=== PATIENT | male | born 1980 | race Caucasian/White ===

== ENCOUNTER 2022-04-19 14:12 | Emergency (ER) | payer MEDICARE, MEDICAID, SELFPAY ==
[2022-04-19 14:48] VITALS: BP 110/77; PULSE 78; RESP 18; TEMP 36.6; O2SAT 95
--- NOTE | 2022-04-19 15:11 | ED.EAR ---
HPI - Ear Problem General Chief complaint: Ear/Nose/Throat Problem Stated complaint: Ears Bothering Him Time Seen by Provider: 04/19/22 15:04 History of Present Illness HPI Narrative: This patient is a nonverbal resident at some kind of long term. Staff bring him in because of some changes in both ears that have been present for the past year or so. He has some erythema with some crusting that is page to eczema or psoriasis. He does not have any other areas of skin changes elsewhere. Staff state that there are no other issues currently. Related Data Home Medications Medication Instructions Recorded Confirmed cholecalciferol (vitamin D3) 25 04/19/22 mcg (1,000 unit) tablet (Vitamin D3) diazepam 5 mg tablet mg 04/19/22 escitalopram oxalate 10 mg tablet mg 04/19/22 gemfibrozil 600 mg tablet mg 04/19/22 lamotrigine 200 mg tablet mg 04/19/22 propranolol 10 mg tablet mg 04/19/22 propranolol 20 mg tablet mg 04/19/22 quetiapine 100 mg tablet mg 04/19/22 quetiapine 50 mg tablet mg 04/19/22 risperidone 2 mg tablet mg 04/19/22 sennosides 8.6 mg tablet (senna) mg 04/19/22 trazodone 50 mg tablet mg 04/19/22 Previous Rx's Medication Instructions Recorded triamcinolone acetonide 0.1 % 1 applic topical BID #15 grams 04/19/22 topical cream Allergies Allergy/AdvReac Type Severity Reaction Status Date / Time Cephalosporins Allergy Mild Rash Verified 04/19/22 14:52 Review of Systems Narrative: Unable to obtain due to nonverbal mental status. Exam Narrative: Exam Narrative: Constitutional: Well-developed, well-nourished, no acute distress. HEENT: Normocephalic, atraumatic. Tympanic membranes appear normal bilaterally. Neck: Normal range of motion. Nontender. Supple. Heart: Intact distal pulses. Lungs: No chest discomfort. No wheezes, rhonchi, or rales. Abdomen: Nontender. Back: Normal range of motion. Extremities: Normal range of motion. No injury. Skin: Intact. Warm. No pallor. Skin in the external canal has some erythema with some mild crusting. Neurologic: No altered sensation. No weakness. Alert and oriented. Psychiatric: No suicidality. No anxiety or depression. No insomnia. Nursing notes and vitals signs are reviewed. Const: Vital Signs, click to edit/add: Vital Signs - 24 hr 04/19/22 14:48 Temperature 98 F Pulse Rate [Pulse Oximeter] 78 Respiratory Rate 18 Blood Pressure [Ri ght Upper Arm] 110/77 Pulse Oximetry 95 Oxygen Delivery Me thod Room Air Course Vital Signs Vital signs: Initial Vital Signs Temperature 98 F 04/19/22 14:48 Temperature Source Temporal Artery Scan 04/19/22 14:48 Pulse Rate 78 04/19/22 14:48 Respiratory Rate 18 04/19/22 14:48 Blood Pressure 110/77 04/19/22 14:48 Blood Pressure Mean 88 04/19/22 14:48 Blood Pressure Position Supine 04/19/22 14:48 Pulse Oximetry 95 04/19/22 14:48 Oxygen Delivery Method 04/19/22 14:48 Vital Signs Temperature 98 F 04/19/22 14:48 Pulse Rate 78 04/19/22 14:48 Respiratory Rate 18 04/19/22 14:48 Blood Pressure 110/77 04/19/22 14:48 Pulse Oximetry 95 04/19/22 14:48 Oxygen Delivery Method 04/19/22 14:48 Temperature 98 F 04/19/22 14:48 Pulse Rate 78 04/19/22 14:48 Respiratory Rate 18 04/19/22 14:48 Blood Pressure 110/77 04/19/22 14:48 Pulse Oximetry 95 04/19/22 14:48 Oxygen Delivery Method 04/19/22 14:48 Medical Decision Making MDM Narrative Medical decision making narrative: This patient has some skin changes in the external portion of the ears bilaterally. He does not have any other skin changes elsewhere. The ear canal and tympanic membrane bilaterally appear normal. He has been receiving some Vaseline lotion to these areas but there is been no improvement. I did prescribe triamcinolone cream and advised that he follow-up with his primary physician. Discharge Plan Discharge Clinical Impression: Dermatosis Patient Disposition: Home w/ Parent or Adult Condition: Stable Additional Instructions: Use medication as prescribed. Follow up with primary physician for re-evaluation. Prescriptions: New triamcinolone acetonide 0.1 % cream 1 applic topical BID Qty: 15 0RF No Action sennosides [senna] 8.6 mg tablet lamotrigine 200 mg tablet trazodone 50 mg tablet quetiapine 100 mg tablet risperidone 2 mg tablet propranolol 10 mg tablet gemfibrozil 600 mg tablet propranolol 20 mg tablet diazepam 5 mg tablet escitalopram oxalate 10 mg tablet quetiapine 50 mg tablet cholecalciferol (vitamin D3) [Vitamin D3] 25 mcg (1,000 unit) tablet Follow Up/Referrals: Rosalio Conner MD [Primary Care Provider] - Stand Alone Forms: [facility] Info Instructions
== END 2022-04-19 15:46 | disposition home or self-care (01) ==
LOC: ED 15:21
PROVIDERS: Emergency Provider Emergency Medicine Emergency Medical Services; PCP Family Medicine
DX: L30.9 Dermatitis, unspecified (principal)
CPT/HCPCS: 99283; 99284

== ENCOUNTER 2022-05-02 12:12 | Emergency (ER) | payer MEDICARE, MEDICAID, SELFPAY ==
[2022-05-02 12:19] VITALS: BP 109/74; PULSE 74; RESP 20; TEMP 36.1; O2SAT 93
[2022-05-02 12:33] VITALS: BP 89/61; PULSE 71; O2SAT 96
--- NOTE | 2022-05-02 12:36 | CRLHL7_ITS ---
For Patients: As a result of the Century Cures Act, medical imaging exams and procedure reports are released immediately into your electronic medical record. You may view this report before your referring provider. If you have questions, please contact your health care provider. HISTORY: Altered mental status. Seizures. TECHNIQUE: CT brain without contrast. COMPARISON: CT brain 01/01/2010. FINDINGS: Motion artifact through the skullbase. No acute intracranial hemorrhage. No extra-axial collection. No mass effect or midline shift. No ventricular dilation. Basal cisterns are patent. Black-white differentiation is maintained. Calvarium appears intact. Visualized paranasal sinuses and mastoid air cells are clear. Orbits are unremarkable. IMPRESSION: No acute intracranial abnormality. Please note that all CT scans at this facility use dose modulation, iterative reconstruction, and/or weight-based dosing when appropriate to reduce radiation dose to as low as reasonably achievable. Dictated by Patricio Knapp MD @ 05/02/2022 1:28:48 PM (Electronically Signed)
--- NOTE | 2022-05-02 12:40 | ED.AMS ---
HPI - Altered Mental Status General Chief Complaint: Altered Mental Status Stated Complaint: Unrepsonsive Time Seen by Provider: 05/02/22 12:14 History of Present Illness HPI narrative: This 41-year-old male is a resident at [facility] and comes in by ambulance because of altered mental status. He normally can speak some 1 word responses. Today he had breakfast and went back for a nap which is typical for him. At about 11:00 a.m. he was noted to be decreased in his responses and was drooling some from his mouth. Upon arrival here he does look at me and did make verbal response. He however did not follow any commands when asked to do various neurologic checks. He arrives with normal vital signs. Related Data Home Medications Medication Instructions Recorded Confirmed cholecalciferol (vitamin D3) 25 04/19/22 mcg (1,000 unit) tablet (Vitamin D3) diazepam 5 mg tablet mg 04/19/22 escitalopram oxalate 10 mg tablet mg 04/19/22 gemfibrozil 600 mg tablet mg 04/19/22 lamotrigine 200 mg tablet mg 04/19/22 propranolol 10 mg tablet mg 04/19/22 propranolol 20 mg tablet mg 04/19/22 quetiapine 100 mg tablet mg 04/19/22 quetiapine 50 mg tablet mg 04/19/22 risperidone 2 mg tablet mg 04/19/22 sennosides 8.6 mg tablet (senna) mg 04/19/22 trazodone 50 mg tablet mg 04/19/22 Previous Rx's Medication Instructions Recorded triamcinolone acetonide 0.1 % 1 applic topical BID #15 grams 04/19/22 topical cream Allergies Allergy/AdvReac Type Severity Reaction Status Date / Time Cephalosporins Allergy Mild Rash Verified 04/19/22 14:52 Review of Systems Narrative: Unable to obtain due to mental status. [facility] Medical History (Updated 05/02/22 @ 14:04 by Tyler Ramos MD) Intellectual developmental disorder, severe Seizure Social History Smoking Status: Never smoker Do you use any of these nicotine containing products: None Second hand tobacco smoke exposure: No How often do you have a drink containing alcohol: never How often do you have six or more drinks on one occasion: Never AUDIT-C Alcohol total score: 0 Non-prescribed substance use: denies use Exam Narrative: Exam Narrative: Constitutional: Well-developed, well-nourished, no acute distress. HEENT: Normocephalic, atraumatic. Neck: Normal range of motion. Nontender. Supple. Heart: Regular. No murmurs. Normal rate. Intact distal pulses. Lungs: Clear to auscultation. No chest discomfort. No wheezes, rhonchi, or rales. Abdomen: Normal bowel sounds. Nontender. No rebound tenderness. Genitalia: Deferred. Extremities: No sign of injury. Skin: Intact. No rash. Warm. No erythema or pallor. Neurologic: The patient did not cooperate with neurologic exam when asked to squeeze my fingers or move his extremities. He did respond verbally briefly but did not answer questions. His caregiver states that he can make 1 word answers sometimes. He has no facial asymmetry. He did respond or react when and IV was placed and when the blood pressure cuff was inflating. Psychiatric: No suicidality. No anxiety or depression. No insomnia. Nursing notes and vitals signs are reviewed. Const: Vital Signs, click to edit/add: Vital Signs - 24 hr 05/02/22 12:19 Temperature 96.9 F L Pulse Rate [Right Pulse Oximeter] 74 Respiratory Rate 20 Blood Pressure [Ri ght Upper Arm] 109/74 Pulse Oximetry 93 Oxygen Delivery Me thod Room Air Course Vital Signs Vital signs: Initial Vital Signs Temperature 96.9 F L 05/02/22 12:19 Temperature Source Temporal Artery Scan 05/02/22 12:19 Pulse Rate 74 05/02/22 12:19 Respiratory Rate 20 05/02/22 12:19 Blood Pressure 109/74 05/02/22 12:19 Blood Pressure Mean 85 05/02/22 12:19 Blood Pressure Position Sitting 05/02/22 12:19 Pulse Oximetry 93 05/02/22 12:19 Oxygen Delivery Method 05/02/22 12:19 Vital Signs Temperature 96.9 F L 05/02/22 12:19 Pulse Rate 74 05/02/22 12:19 Respiratory Rate 20 05/02/22 12:19 Blood Pressure 109/74 05/02/22 12:19 Pulse Oximetry 93 05/02/22 12:19 Oxygen Delivery Method 05/02/22 12:19 Temperature 96.9 F L 05/02/22 12:19 Pulse Rate 74 08/21/22 12:19 Respiratory Rate 20 05/02/22 12:19 Blood Pressure 109/74 05/02/22 12:19 Pulse Oximetry 93 05/02/22 12:19 Oxygen Delivery Method 05/02/22 12:19 MDM - Altered Mental Status MDM Narrative Medical decision making narrative: This patient comes in because of decreased responses. He arrives with normal vital signs. An IV was established where he has received a L of normal saline. Lab results returned with reassuring findings. He did have a lactate level of 2.5 but is white count, blood pressure, and temperature are all in normal ranges. CT scan of the head and chest x-ray returned with no acute findings also. This patient does have a history of epileptic seizures. He may have had a seizure that was unwitnessed with a subsequent postictal state. In the course of his stay here he has resumed back to normal activities and function. This was confirmed by staff person from [facility]. He is okay to return there to continue current plans. Lab Data Labs: Lab Results 05/02/22 05/02/22 05/02/22 Range/Units 12:30 12:30 12:30 WBC 4.57 (4.50-11.00) K/uL RBC 4.82 (4.30-5.90) m/uL Hgb 14.2 (13.5-17.5) gm/dL Hct 41.9 (37.0-53.0) % MCV 87 (80-100) fL MCH 30 (26-34) pg MCHC 34 (32-36) gm/dL RDW Coeff of Dileep 12.6 (11.5-15.5) % Plt Count 238 (140-440) K/uL Neut % (Auto) 39.7 L (42.0-72.0) % Lymph % (Auto) 50.3 H (20-44) % [place] % (Auto) 9.4 (0.0-11.0) % Eos % (Auto) 0.2 (0.0-7.0) % Baso % (Auto) 0.2 (0.0-3.0) % Neut # (Auto) 1.80 (1.7-7.0) K/uL Lymph # (Auto) 2.30 (0.90-2.90) K/uL [place] # (Auto) 0.40 (0.00-0.90) K/UL Eos # (Auto) 0.01 (0.00-0.50) K/uL Baso # (Auto) 0.01 (0.00-0.30) K/uL Abs Immat Gran (auto) 0.01 (0.00-0.30) K/uL Sodium 140 (135-149) mmol/L Potassium 4.1 (3.6-5.1) mmol/L Chloride 100 (96-114) mmol/L Carbon Dioxide 28 (20-32) mmol/L BUN 20 (5-24) mg/dL Creatinine 0.9 (0.5-1.5) mg/dL Estimated GFR 109 ml/min Glucose 127 H (60-115) mg/dL Lactate (0.5-1.9) mmol/L Calcium 9.4 (8.4-10.6) mg/dL Total Bilirubin 0.4 (0.1-1.5) mg/dL Direct Bilirubin 0.2 (0.0-0.5) mg/dL AST 25 (12-35) U/L ALT 20 (4-50) U/L Alkaline Phosphatase 124 (40-150) U/L Troponin I < 0.01 L (0.01-0.04) ng/mL C-Reactive Protein 1.1 H (0.5-1.0) mg/dL Total Protein 7.6 (6.0-8.3) g/dL Albumin 4.6 (3.3-5.0) g/dL 05/02/22 05/02/22 Range/Units 12:30 12:30 WBC (4.50-11.00) K/uL RBC (4.30-5.90) m/uL Hgb (13.5-17.5) gm/dL Hct (37.0-53.0) % MCV (80-100) fL MCH (26-34) pg MCHC (32-36) gm/dL RDW Coeff of Dileep (11.5-15.5) % Plt Count (140-440) K/uL Neut % (Auto) (42.0-72.0) % Lymph % (Auto) (20-44) % [place] % (Auto) (0.0-11.0) % Eos % (Auto) (0.0-7.0) % Baso % (Auto) (0.0-3.0) % Neut # (Auto) (1.7-7.0) K/uL Lymph # (Auto) (0.90-2.90) K/uL [place] # (Auto) (0.00-0.90) K/UL Eos # (Auto) (0.00-0.50) K/uL Baso # (Auto) (0.00-0.30) K/uL Abs Immat Gran (auto) (0.00-0.30) K/uL Sodium (135-149) mmol/L Potassium (3.6-5.1) mmol/L Chloride (96-114) mmol/L Carbon Dioxide (20-32) mmol/L BUN (5-24) mg/dL Creatinine (0.5-1.5) mg/dL Estimated GFR ml/min Glucose (60-115) mg/dL Lactate 2.5 H (0.5-1.9) mmol/L Calcium (8.4-10.6) mg/dL Total Bilirubin (0.1-1.5) mg/dL Direct Bilirubin (0.0-0.5) mg/dL AST (12-35) U/L ALT (4-50) U/L Alkaline Phosphatase (40-150) U/L Troponin I Cancelled (0.01-0.04) ng/mL C-Reactive Protein (0.5-1.0) mg/dL Total Protein (6.0-8.3) g/dL Albumin (3.3-5.0) g/dL Imaging Data Chest x-ray: Radiologist's impression: Low lung volumes. No airspace consolidation. No pleural effusion or pneumothorax. Pulmonary vasculature and cardiomediastinal silhouette are unremarkable. CT scan - head: Radiologist's impression: No acute intracranial abnormality. ECG Data Attestation: I personally reviewed and interpreted this ECG as follows: Interpretation: Normal sinus rhythm. Rate 71 beats per minute. There are no specific ST or T-wave abnormalities. Discharge Plan Discharge Clinical Impression: Altered mental status Patient Disposition: Home, Self-Care Condition: Improved Instructions: Altered Mental Status (ED) Additional Instructions: Continue current plans. Follow up with MD or return if recurrent or worsening symptoms happen. Prescriptions: No Action sennosides [senna] 8.6 mg tablet lamotrigine 200 mg tablet trazodone 50 mg tablet quetiapine 100 mg tablet risperidone 2 mg tablet propranolol 10 mg tablet gemfibrozil 600 mg tablet propranolol 20 mg tablet diazepam 5 mg tablet escitalopram oxalate 10 mg tablet quetiapine 50 mg tablet cholecalciferol (vitamin D3) [Vitamin D3] 25 mcg (1,000 unit) tablet triamcinolone acetonide 0.1 % cream 1 applic topical BID Qty: 15 0RF Follow Up/Referrals: Rosalio Conner MD [Primary Care Provider] - Stand Alone Forms: [facility] Info Instructions
[2022-05-02 12:48] LABS: Basophils Absolute Auto 0.01 K/uL (0.00-0.30); Basophils Percent Auto 0.2 % (0.0-3.0); Eosinophils Absolute Auto 0.01 K/uL (0.00-0.50); Eosinophils Percent Auto 0.2 % (0.0-7.0); Hematocrit 41.9 % (37.0-53.0); Hemoglobin* 14.2 gm/dL (13.5-17.5); Immature Granulocytes Abs Auto 0.01 K/uL (0.00-0.30); Lymphocytes Percent Auto 50.3 % (20-44); Mean Corpuscular HGB Conc 34 gm/dL (32-36); Mean Corpuscular Hemoglobin 30 pg (26-34); Mean Corpuscular Volume 87 fL (80-100); Monocytes Percent Auto 9.4 % (0.0-11.0); Neutrophils Percent Auto 39.7 % (42.0-72.0); Platelet Count* 238 K/uL (140-440); RDW Coefficient of Variation % 12.6 % (11.5-15.5); Red Blood Count 4.82 m/uL (4.30-5.90); White Blood Count* 4.57 K/uL (4.50-11.00)
[2022-05-02 12:53] LABS: Lactate* 2.5 mmol/L (0.5-1.9)
[2022-05-02 12:54] LABS: Slide Review Reflex No
[2022-05-02 12:56] VITALS: BP 108/77; PULSE 72; RESP 12; O2SAT 98
--- NOTE | 2022-05-02 12:58 | CRLHL7_ITS ---
For Patients: As a result of the Cures Act, medical imaging exams and procedure reports are released immediately into your electronic medical record. You may view this report before your referring provider. If you have questions, please contact your health care provider. HISTORY: Elevated lactate. TECHNIQUE: Portable frontal view the chest. COMPARISON: Chest x-ray 06/03/2018. FINDINGS: Low lung volumes. No airspace consolidation. No pleural effusion or pneumothorax. Pulmonary vasculature and cardiomediastinal silhouette are unremarkable. IMPRESSION: Low lung volumes. Dictated by Patricio Knapp MD @ 05/02/2022 1:29:45 PM (Electronically Signed)
[2022-05-02 13:02] LABS: Chloride* 100 mmol/L (96-114); Potassium* 4.1 mmol/L (3.6-5.1); Sodium* 140 mmol/L (135-149)
[2022-05-02 13:03] LABS: Albumin* 4.6 g/dL (3.3-5.0)
[2022-05-02 13:05] LABS: Blood Urea Nitrogen* 20 mg/dL (5-24); Carbon Dioxide* 28 mmol/L (20-32); Creatinine* 0.9 mg/dL (0.5-1.5); Estimated Glomerular Filt Rate 109 ml/min; Glucose* 127 mg/dL (60-115)
[2022-05-02 13:06] LABS: Alanine Aminotransferase* 20 U/L (4-50); Alkaline Phosphatase* 124 U/L (40-150); Aspartate Amino Transferase* 25 U/L (12-35); Bilirubin Direct* 0.2 mg/dL (0.0-0.5); Bilirubin Total* 0.4 mg/dL (0.1-1.5); Calcium* 9.4 mg/dL (8.4-10.6); Total Protein* 7.6 g/dL (6.0-8.3)
[2022-05-02 13:09] LABS: C Reactive Protein* 1.1 mg/dL (0.5-1.0)
[2022-05-02] MEDS: 0.9 % SODIUM CHLORIDE 1000 ml 1,000 ML IV (13:17)
[2022-05-02 13:38] LABS: Troponin I* < 0.01 ng/mL (0.01-0.04)
[2022-05-02 14:00] VITALS: BP 113/78; PULSE 72
== END 2022-05-02 14:24 | disposition home or self-care (01) ==
PROVIDERS: Emergency Provider Emergency Medicine Emergency Medical Services; PCP Family Medicine
DX: R41.82 Altered mental status, unspecified (principal)
CPT/HCPCS: 36415; 70450; 71045; 80048; 80076; 81001; 83605; 84484; 85025; 86140; 87040; 93005; 96360; 99284; 99285; J7030

== ENCOUNTER 2022-06-28 13:22 | Emergency (ER) | payer MEDICARE, MEDICAID, SELFPAY ==
[2022-06-28 13:45] VITALS: PULSE 72; TEMP 36; O2SAT 94; BMI 31.7
[2022-06-28] MEDS: ACETAMINOPHEN 325 MG TABLET 650 MG PO (15:35)
[2022-06-28 15:45] VITALS: PULSE 71; O2SAT 94
[2022-06-28 16:22] LABS: PCR FLU A Negative PCR FLU A (Negative); PCR FLU B Negative PCR FLU B (Negative); PCR RSV Negative PCR RSV (Negative)
[2022-06-28 16:41] LABS: SARS PCR* Negative SARS-CoV-2 (Negative)
--- NOTE | 2022-06-28 20:40 | ED.GENADULT ---
HPI - General Adult General Date Seen: 06/28/22 Chief complaint: Shortness of Breath/Dyspnea Stated complaint: Oxygen levels low, runny nose, balance off Time Seen by Provider: 06/28/22 14:54 Source: patient and other (Staff from [facility]) Mode of arrival: ambulatory Limitations: no limitations History of Present Illness HPI narrative: Patient is a resident of [facility] presents here with the staff, wondering if he is sick, he seems to have more red eyes today and they wondered if his oxygen levels are normal normal, but he does seem to be normal for him, he just does not have this seemingly Pap that he normally has. No history of fevers chills nausea vomiting he did eat normally today's had normal bowel movements, just a little bit more lethargic. This is been occurring for the past 4-5 hours, and they find it very hard to differentiate as he is nonverbal. Related Data Home Medications Medication Instructions Recorded Confirmed cholecalciferol (vitamin D3) 25 25 mcg PO DAILY 04/19/22 06/28/22 mcg (1,000 unit) tablet (Vitamin D3) diazepam 5 mg tablet 5 mg PO BID 04/19/22 06/28/22 escitalopram oxalate 10 mg tablet mg 04/19/22 gemfibrozil 600 mg tablet mg 04/19/22 lamotrigine 200 mg tablet 200 mg PO Q12H 04/19/22 06/28/22 propranolol 10 mg tablet mg 04/19/22 propranolol 20 mg tablet 20 mg PO Q8H 04/19/22 06/28/22 quetiapine 100 mg tablet 50 mg PO TID 04/19/22 06/28/22 quetiapine 50 mg tablet 25 mg PO TID 04/19/22 06/28/22 risperidone 2 mg tablet 2 mg PO DAILY 04/19/22 06/28/22 sennosides 8.6 mg tablet (senna) 8.6 mg PO BID 04/19/22 06/28/22 trazodone 50 mg tablet 50 mg PO TID 04/19/22 06/28/22 atorvastatin 20 mg tablet 20 mg PO DAILY 06/28/22 06/28/22 clonazepam 0.5 mg tablet 0.25 mg PO Q8H 06/28/22 06/28/22 escitalopram oxalate 5 mg tablet 10 mg PO DAILY 06/28/22 06/28/22 fluvoxamine 100 mg tablet 100 mg PO BID 06/28/22 06/28/22 multivitamin (One Daily Essential 1 tab PO DAILY 06/28/22 06/28/22 tablet) Previous Rx's Medication Instructions Recorded triamcinolone acetonide 0.1 % 1 applic topical BID #15 grams 04/19/22 topical cream Allergies Allergy/AdvReac Type Severity Reaction Status Date / Time Cephalosporins Allergy Mild Rash Verified 06/28/22 13:55 Review of Systems Status of ROS: Reports: unobtainable due to medical condition and unobtainable due to mental status Narrative: Overall negative according to the medical staff, but he does have a runny nose. [facility] Medical History Intellectual developmental disorder, severe Seizure Social History Smoking Status: Never smoker Do you use any of these nicotine containing products: None Second hand tobacco smoke exposure: No How often do you have a drink containing alcohol: never How often do you have six or more drinks on one occasion: Never AUDIT-C Alcohol total score: 0 Non-prescribed substance use: denies use Exam Narrative: Exam Narrative: Patient is examined in room 6, appears to be in no distress, his TMs bilaterally normal oropharynx is normal, good hydration eyes are little bit reddened, no meningismus is noted on examination chest is good air entry bilaterally with no wheezing crackles noted heart sounds are normal his abdomen is entirely soft there is no guarding no pedal splenomegaly bowel sounds are normal, and no tenderness is elicited. Skin with a daycare rashes any moves all extremities independently and well. Const: Vital Signs, click to edit/add: Vital Signs - 24 hr 06/28/22 13:45 06/28/22 15:45 Temperature 96.8 F L Pulse Rate [Right Pulse Oximeter] 72 71 Pulse Oximetry 94 94 Oxygen Delivery Me thod Room Air Room Air Documenting provider has reviewed patient's vital signs: yes Course Vital Signs Vital signs: Initial Vital Signs Temperature 96.8 F L 06/28/22 13:45 Temperature Source Temporal Artery Scan 06/28/22 13:45 Pulse Rate 72 06/28/22 13:45 Blood Pressure Position Sitting 06/28/22 13:45 Pulse Oximetry 94 06/28/22 13:45 Oxygen Delivery Method 06/28/22 13:45 Vital Signs Temperature 96.8 F L 06/28/22 13:45 Pulse Rate 72 06/28/22 13:45 Pulse Oximetry 94 06/28/22 13:45 Oxygen Delivery Method 06/28/22 13:45 Temperature 96.8 F L 06/28/22 13:45 Pulse Rate 71 06/28/22 15:45 Pulse Oximetry 94 06/28/22 15:45 Oxygen Delivery Method 06/28/22 15:45 Medical Decision Making MDM Narrative Medical decision making narrative: Life-threatening differential diagnosis considered include stroke, coronary artery disease, pneumonia, and heart failure. Other differential diagnosis include but are not limited to electrolyte imbalances, anemia, medication reactions, and urinary tract infection Given the current situation with absence of a fever I do not think this is a bladder infection, I do not think he has pneumonia, but I do think he likely has a viral illness given the above picture, we did do a triple swab for COVID, influenza, RSV and this was negative, I do recommend Tylenol watching him and bring him back things are worsening, they were very comfortable with this as the staff is excellent. Lab Data Lab results reviewed: Yes I reviewed the patient's lab results Labs: Lab Results 06/28/22 Range/Units 15:07 SARS-CoV-2 (PCR) Negative SARS-CoV-2 (Negative) Influenza Type A (PCR) Negative PCR FLU A (Negative) Influenza Type B (PCR) Negative PCR FLU B (Negative) RSV (PCR) Negative PCR RSV (Negative) Discharge Plan Discharge Clinical Impression: Viral URI Patient Disposition: Home w/ Parent or Adult Condition: Stable Instructions: Pharyngitis (ED) Additional Instructions: Home rest we will call with the results if they are positive, continue with the Tylenol, follow-up if fevers chills or other signs and symptoms of worsening. Prescriptions: No Action sennosides [senna] 8.6 mg tablet 8.6 mg PO BID lamotrigine 200 mg tablet 200 mg PO Q12H trazodone 50 mg tablet 50 mg PO TID quetiapine 100 mg tablet 50 mg PO TID risperidone 2 mg tablet 2 mg PO DAILY propranolol 10 mg tablet gemfibrozil 600 mg tablet propranolol 20 mg tablet 20 mg PO Q8H diazepam 5 mg tablet 5 mg PO BID escitalopram oxalate 10 mg tablet quetiapine 50 mg tablet 25 mg PO TID cholecalciferol (vitamin D3) [Vitamin D3] 25 mcg (1,000 unit) tablet 25 mcg PO DAILY triamcinolone acetonide 0.1 % cream 1 applic topical BID Qty: 15 0RF atorvastatin 20 mg tablet 20 mg PO DAILY clonazepam 0.5 mg tablet 0.25 mg PO Q8H escitalopram oxalate 5 mg tablet 10 mg PO DAILY fluvoxamine 100 mg tablet 100 mg PO BID multivitamin [One Daily Essential] Tablet 1 tab PO DAILY Follow Up/Referrals: Rosalio Conner MD [Primary Care Provider] - Stand Alone Forms: [facility] Info Instructions
== END 2022-06-28 15:48 | disposition home or self-care (01) ==
PROVIDERS: Emergency Provider Family Medicine; PCP Family Medicine
DX: J06.9 Acute upper respiratory infection, unspecified (principal); Z20.822 Contact with and (suspected) exposure to COVID-19
CPT/HCPCS: 80048; 80076; 83880; 85025; 85379; 85610; 85730; 86140; 87502; 87634; 87635; 99283; 99284; A9270

== ENCOUNTER 2022-07-14 08:49 | Emergency (ER) | payer MEDICARE, MEDICAID, SELFPAY ==
[2022-07-14 09:17] VITALS: BP 97/66; PULSE 70; RESP 18; TEMP 36.6; O2SAT 94
[2022-07-14 10:13] LABS: PCR FLU A Negative PCR FLU A (Negative); PCR FLU B Negative PCR FLU B (Negative); PCR RSV Negative PCR RSV (Negative)
[2022-07-14 10:24] LABS: SARS PCR* Negative SARS-CoV-2 (Negative)
--- NOTE | 2022-07-14 11:01 | ED.EAR ---
HPI - Ear Problem General Time Seen by Provider: 11:02 Date Seen: 07/14/22 Chief complaint: Ear/Nose/Throat Problem Stated complaint: Possible sinus infection Time Seen by Provider: 07/14/22 11:01 Source: patient, RN notes reviewed and old records reviewed Mode of arrival: wheelchair Limitations: no limitations History of Present Illness HPI Narrative: Do Farmer is a 41-year-old male profound developmental delay a verbal from Deanna Galloway who comes to the emergency room with senior stack engineer for evaluation of potential sinus infection. Do munguia had the onset of some green sinus drainage yesterday not associated with a cough or with any fever. When I let the senior stack engineer no of the negative status of COVID she told me that the nurse would like to have scans of do cosme head and feet. They state that for 2 weeks he has been off balance which is unusual for him they states that in the morning he is somewhat slow to respond and what they described as lethargic but according to senior stack engineer this is normal. However, he has been not walking normally and limping. They do not know of any falls or injury but states that he is very stoic and has ambulated on a fractured foot in the past. There has been no recent fever, vomiting, diarrhea that they know of. Related Data Home Medications Medication Instructions Recorded Confirmed cholecalciferol (vitamin D3) 25 25 mcg PO DAILY 04/19/22 06/28/22 mcg (1,000 unit) tablet (Vitamin D3) diazepam 5 mg tablet 5 mg PO BID 04/19/22 06/28/22 escitalopram oxalate 10 mg tablet mg 04/19/22 gemfibrozil 600 mg tablet mg 04/19/22 lamotrigine 200 mg tablet 200 mg PO Q12H 04/19/22 06/28/22 propranolol 10 mg tablet mg 04/19/22 propranolol 20 mg tablet 20 mg PO Q8H 04/19/22 06/28/22 quetiapine 100 mg tablet 50 mg PO TID 04/19/22 06/28/22 quetiapine 50 mg tablet 25 mg PO TID 04/19/22 06/28/22 risperidone 2 mg tablet 2 mg PO DAILY 04/19/22 06/28/22 sennosides 8.6 mg tablet (senna) 8.6 mg PO BID 04/19/22 06/28/22 trazodone 50 mg tablet 50 mg PO TID 04/19/22 06/28/22 atorvastatin 20 mg tablet 20 mg PO DAILY 06/28/22 06/28/22 clonazepam 0.5 mg tablet 0.25 mg PO Q8H 06/28/22 06/28/22 escitalopram oxalate 5 mg tablet 10 mg PO DAILY 06/28/22 06/28/22 fluvoxamine 100 mg tablet 100 mg PO BID 06/28/22 06/28/22 multivitamin (One Daily Essential 1 tab PO DAILY 06/28/22 06/28/22 tablet) Previous Rx's Medication Instructions Recorded triamcinolone acetonide 0.1 % 1 applic topical BID #15 grams 04/19/22 topical cream amoxicillin 875 mg-potassium 1 tab PO BID #10 tabs 07/14/22 clavulanate 125 mg tablet ciprofloxacin 0.3 %-dexamethasone 6 drp otic (ear) QID #15 mL 07/14/22 0.1 % ear drops,suspension (Ciprodex) Allergies Allergy/AdvReac Type Severity Reaction Status Date / Time Cephalosporins Allergy Mild Rash Verified 06/28/22 13:55 Review of Systems Narrative: Unable given patient's condition. However according to caregiver with the exception of balance changes in the last 2 weeks and green nasal discharge yesterday no other acute symptoms. [facility] Medical History Intellectual developmental disorder, severe Seizure Social History Smoking Status: Never smoker Do you use any of these nicotine containing products: None Second hand tobacco smoke exposure: No How often do you have a drink containing alcohol: never How often do you have six or more drinks on one occasion: Never AUDIT-C Alcohol total score: 0 Non-prescribed substance use: denies use Exam Narrative: Exam Narrative: Patient is initially sitting in wheelchair. He is with his neck bent and arms hanging. He is able to keep himself in the wheelchair. He is awake. We do move him into the bed for better exam. His EOM is full and pupils are reactive. He does not necessarily obey commands but when I asked if my can take his shoe off he raises his foot up for me to be able to do that. He is unable does not open his mouth for me. He does open his eyes for me. Right TM within normal limits left TM is visualized but there is significant debris in the canal and some mild erythema of the ear. He did not react to discomfort. Heart is with regular rate and rhythm and lungs are clear bilaterally abdomen is protrude parent and firm but I do not elicit any discomfort. Lower extremities show edema of the right ankle and calf compared to the left. Again no wincing or signs of discomfort as I palpate these areas. Const: Vital Signs, click to edit/add: Vital Signs - 24 hr 07/14/22 09:17 Temperature 97.9 F Pulse Rate [Right Pulse Oximeter] 70 Respiratory Rate 18 Blood Pressure [Ri ght Upper Arm] 97/66 Pulse Oximetry 94 Oxygen Delivery Me thod Room Air Documenting provider has reviewed patient's vital signs: yes Course Course Hospital Course: Patient has been tested for COVID influenza and RSV and is negative. Will add a CBC, comprehensive panel and CRP. In addition will order x-rays of both feet and the right ankle given swelling. Will scan head given the balance issues. Left otitis externa is 1 of the diagnoses currently. Reevaluation(s) Reevaluation #1: Patient is much more awake at this time. Excited to go home. Vital Signs Vital signs: Initial Vital Signs Temperature 97.9 F 07/14/22 09:17 Temperature Source Temporal Artery Scan 07/14/22 09:17 Pulse Rate 70 07/14/22 09:17 Respiratory Rate 18 07/14/22 09:17 Blood Pressure 97/66 07/14/22 09:17 Blood Pressure Mean 76 07/14/22 09:17 Blood Pressure Position Sitting 07/14/22 09:17 Pulse Oximetry 94 07/14/22 09:17 Oxygen Delivery Method 07/14/22 09:17 Vital Signs Temperature 97.9 F 07/14/22 09:17 Pulse Rate 70 07/14/22 09:17 Respiratory Rate 18 07/14/22 09:17 Blood Pressure 97/66 07/14/22 09:17 Pulse Oximetry 94 07/14/22 09:17 Oxygen Delivery Method 07/14/22 09:17 Temperature 97.9 F 07/14/22 09:17 Pulse Rate 70 07/14/22 09:17 Respiratory Rate 18 07/14/22 09:17 Blood Pressure 97/66 07/14/22 09:17 Pulse Oximetry 94 07/14/22 09:17 Oxygen Delivery Method 07/14/22 09:17 Medical Decision Making MDM Narrative Medical decision making narrative: 1. Left otitis externa- We will treat with Ciprodex otic 6 drops q.i.d. x7 days. Recommend ibuprofen or Tylenol as needed for discomfort. 2. Balance problems - this may be secondary to the otitis externa. No evidence of fracture on feet right ankle or abnormality on CT scan. 3. Pansinusitis- will treat with Augmentin 875 p.o. b.i.d. times 10 days. Patient has an allergy to cephalosporins which caused rash but no anaphylaxis. 3. Right ankle swelling- likely secondary to previous injury and hardware. No evidence of acute fracture on x-rays. 3. Disposition -Home with caregiver. Also speak to kathia ACEVEDO in charge of patient care to review need for both ear drops as well as oral antibiotics. Return as needed. Patient is much more alert interactive nontoxic in appearance. Lab Data Lab results reviewed: Yes I reviewed the patient's lab results Labs: Lab Results 07/14/22 07/14/22 07/14/22 Range/Units 09:16 11:25 11:25 WBC 4.73 (4.50-11.00) K/uL RBC 4.89 (4.30-5.90) m/uL Hgb 14.1 (13.5-17.5) gm/dL Hct 42.4 (37.0-53.0) % MCV 87 (80-100) fL MCH 29 (26-34) pg MCHC 33 (32-36) gm/dL RDW Coeff of Dileep 12.7 (11.5-15.5) % Plt Count 202 (140-440) K/uL Neut % (Auto) 47.7 (42.0-72.0) % Lymph % (Auto) 43.3 (20-44) % [place] % (Auto) 8.2 (0.0-11.0) % Eos % (Auto) 0.2 (0.0-7.0) % Baso % (Auto) 0.2 (0.0-3.0) % Neut # (Auto) 2.25 (1.7-7.0) K/uL Lymph # (Auto) 2.05 (0.90-2.90) K/uL [place] # (Auto) 0.40 (0.00-0.90) K/UL Eos # (Auto) 0.01 (0.00-0.50) K/uL Baso # (Auto) 0.01 (0.00-0.30) K/uL Abs Immat Gran (auto) 0.02 (0.00-0.30) K/uL Sodium 139 (135-149) mmol/L Potassium 4.3 (3.6-5.1) mmol/L Chloride 101 (96-114) mmol/L Carbon Dioxide 28 (20-32) mmol/L BUN 15 (5-24) mg/dL Creatinine 0.8 (0.5-1.5) mg/dL Estimated GFR 113 ml/min Glucose 104 (60-115) mg/dL Calcium 9.0 (8.4-10.6) mg/dL Total Bilirubin 0.4 (0.1-1.5) mg/dL AST 26 (12-35) U/L ALT 35 (4-50) U/L Alkaline Phosphatase 147 (40-150) U/L Troponin I < 0.01 L (0.01-0.04) ng/mL C-Reactive Protein 1.8 H (0.5-1.0) mg/dL Total Protein 7.6 (6.0-8.3) g/dL Albumin 4.6 (3.3-5.0) g/dL Amylase 79 (18-89) U/L Lipase 43 (23-300) U/L SARS-CoV-2 (PCR) Negative SARS-CoV-2 (Negative) Influenza Type A (PCR) Negative PCR FLU A (Negative) Influenza Type B (PCR) Negative PCR FLU B (Negative) RSV (PCR) Negative PCR RSV (Negative) Imaging Data CT scan - head: Attestation: I have reviewed the pertinent imaging results. My impression: Sinusitis without acute intracranial finding. Radiologist's impression: Cerebral parenchyma: No evidence of acute territorial infarct. No acute intraparenchymal hemorrhage. No significant mass effect/midline shift. Normal mederos-white matter differentiation. Extra-axial spaces: No extra-axial collection or hemorrhage. Ventricles: Unremarkable. Calvarium: Intact. Visualized paranasal sinuses/mastoid air cells: Diffuse mucosal thickening of the bilateral maxillary sinuses, ethmoid air cells, and left frontal sinus. Posterior fossa: No cerebellar tonsillar herniation. Visualized orbits: Unremarkable. IMPRESSION: 1. No acute intracranial abnormality. 2. Extensive paranasal sinusitis. Bilateral foot x-rays: Attestation: I have reviewed the pertinent imaging results. My impression: Chronic finding Radiologist's impression: Impression: No evidence of acute fracture. Mild hindfoot degenerative arthrosis. No synovitis. Old trauma to the hindfoot. Hallux valgus. No acute fracture. Right ankle x-ray: Attestation: I have reviewed the pertinent imaging results. My impression: No acute finding Radiologist's impression: Old healed fracture deformity of the distal fibula with intact hardware. Chronic syndesmotic fusion. Chronic widening of the medial mortise with hypertrophic change. Chronic deformity of the posterior malleolus. No acute fracture. Impression: Sequela of prior trauma to the ankle with intact hardware and chronic widening of the medial mortise. No acute fracture. ECG Data Attestation: I personally reviewed and interpreted this ECG as follows: Interpretation: EKG by my read shows sinus rhythm at a rate of 71. Poor R-wave progression but no evidence of acute ST or T-wave changes. 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 And sinusitis. Prescriptions: New amoxicillin-pot clavulanate 875-125 mg tablet 1 tab PO BID Qty: 10 0RF ciprofloxacin-dexamethasone [Ciprodex] 0.3-0.1 % drops,suspension 6 drp otic (ear) QID Qty: 15 0RF No Action sennosides [senna] 8.6 mg tablet 8.6 mg PO BID lamotrigine 200 mg tablet 200 mg PO Q12H trazodone 50 mg tablet 50 mg PO TID quetiapine 100 mg tablet 50 mg PO TID risperidone 2 mg tablet 2 mg PO DAILY propranolol 10 mg tablet gemfibrozil 600 mg tablet propranolol 20 mg tablet 20 mg PO Q8H diazepam 5 mg tablet 5 mg PO BID escitalopram oxalate 10 mg tablet quetiapine 50 mg tablet 25 mg PO TID cholecalciferol (vitamin D3) [Vitamin D3] 25 mcg (1,000 unit) tablet 25 mcg PO DAILY triamcinolone acetonide 0.1 % cream 1 applic topical BID Qty: 15 0RF atorvastatin 20 mg tablet 20 mg PO DAILY clonazepam 0.5 mg tablet 0.25 mg PO Q8H escitalopram oxalate 5 mg tablet 10 mg PO DAILY fluvoxamine 100 mg tablet 100 mg PO BID multivitamin [One Daily Essential] Tablet 1 tab PO DAILY Follow Up/Referrals: Rosalio Conner MD [Primary Care Provider] - Stand Alone Forms: [facility] Info Instructions
[2022-07-14 11:30] LABS: Basophils Absolute Auto 0.01 K/uL (0.00-0.30); Basophils Percent Auto 0.2 % (0.0-3.0); Eosinophils Absolute Auto 0.01 K/uL (0.00-0.50); Eosinophils Percent Auto 0.2 % (0.0-7.0); Hematocrit 42.4 % (37.0-53.0); Hemoglobin* 14.1 gm/dL (13.5-17.5); Immature Granulocytes Abs Auto 0.02 K/uL (0.00-0.30); Lymphocytes Absolute Auto 2.05 K/uL (0.90-2.90); Lymphocytes Percent Auto 43.3 % (20-44); Mean Corpuscular HGB Conc 33 gm/dL (32-36); Mean Corpuscular Hemoglobin 29 pg (26-34); Mean Corpuscular Volume 87 fL (80-100); Monocytes Percent Auto 8.2 % (0.0-11.0); Neutrophils Absolute Auto 2.25 K/uL (1.7-7.0); Neutrophils Percent Auto 47.7 % (42.0-72.0); Platelet Count* 202 K/uL (140-440); RDW Coefficient of Variation % 12.7 % (11.5-15.5); Red Blood Count 4.89 m/uL (4.30-5.90); White Blood Count* 4.73 K/uL (4.50-11.00)
[2022-07-14 11:37] LABS: Slide Review Reflex No
[2022-07-14 11:43] LABS: Albumin* 4.6 g/dL (3.3-5.0); Chloride* 101 mmol/L (96-114); Sodium* 139 mmol/L (135-149)
[2022-07-14 11:44] LABS: Potassium* 4.3 mmol/L (3.6-5.1)
[2022-07-14 11:46] LABS: Amylase* 79 U/L (18-89); Aspartate Amino Transferase* 26 U/L (12-35); Bilirubin Total* 0.4 mg/dL (0.1-1.5); Carbon Dioxide* 28 mmol/L (20-32); Creatinine* 0.8 mg/dL (0.5-1.5); Estimated Glomerular Filt Rate 113 ml/min; Total Protein* 7.6 g/dL (6.0-8.3)
[2022-07-14 11:47] LABS: Alanine Aminotransferase* 35 U/L (4-50); Alkaline Phosphatase* 147 U/L (40-150); Blood Urea Nitrogen* 15 mg/dL (5-24); Glucose* 104 mg/dL (60-115); Lipase* 43 U/L (23-300)
--- NOTE | 2022-07-14 11:47 | CRLHL7_ITS ---
For Patients: As a result of the Century Cures Act, medical imaging exams and procedure reports are released immediately into your electronic medical record. You may view this report before your referring provider. If you have questions, please contact your health care provider. Indication: BALANCE PROBLEMS x2 WEEKS Technique: Right foot 2 views Comparison: Right ankle films 11/09/2020 Findings: Sequela of prior trauma to the ankle with secondary tibiotalar arthropathy. Hallux valgus at the 1st MTP joint. Bipartite tibial sesamoid. Normal midfoot. Impression: Old trauma to the hindfoot. Hallux valgus. No acute fracture. Dictated by Amol Rubio MD @ 07/14/2022 12:26:55 PM (Electronically Signed)
--- NOTE | 2022-07-14 11:47 | CRLHL7_ITS ---
For Patients: As a result of the Cures Act, medical imaging exams and procedure reports are released immediately into your electronic medical record. You may view this report before your referring provider. If you have questions, please contact your health care provider. Indication: BALANCE PROBLEMS x2 WEEKS Technique: Right ankle 2 views Comparison: 11/09/2020 Findings: Old healed fracture deformity of the distal fibula with intact hardware. Chronic syndesmotic fusion. Chronic widening of the medial mortise with hypertrophic change. Chronic deformity of the posterior malleolus. No acute fracture. Impression: Sequela of prior trauma to the ankle with intact hardware and chronic widening of the medial mortise. No acute fracture. Dictated by Amol Rubio MD @ 07/14/2022 12:23:56 PM (Electronically Signed)
--- NOTE | 2022-07-14 11:47 | CRLHL7_ITS ---
For Patients: As a result of the Century Cures Act, medical imaging exams and procedure reports are released immediately into your electronic medical record. You may view this report before your referring provider. If you have questions, please contact your health care provider. Indication: BALANCE PROBLEMS x2 WEEKS Technique: Left foot 2 views Comparison: None Findings: Bones: Alignment is normal. No acute fractures or bone lesions. Chronic ossicle adjacent to the medial malleolus. Joint spaces: Mild spurring at the anterior tibial plafond. Soft tissues: Unremarkable. Impression: No evidence of acute fracture. Mild hindfoot degenerative arthrosis. No synovitis. Dictated by Amol Rubio MD @ 07/14/2022 12:28:12 PM (Electronically Signed)
--- NOTE | 2022-07-14 11:47 | CRLHL7_ITS ---
For Patients: As a result of the Century Cures Act, medical imaging exams and procedure reports are released immediately into your electronic medical record. You may view this report before your referring provider. If you have questions, please contact your health care provider. INDICATION: Balance problems. TECHNIQUE: CT head without contrast. COMPARISON: CT head dated 05/02/2022. FINDINGS: Cerebral parenchyma: No evidence of acute territorial infarct. No acute intraparenchymal hemorrhage. No significant mass effect/midline shift. Normal mederos-white matter differentiation. Extra-axial spaces: No extra-axial collection or hemorrhage. Ventricles: Unremarkable. Calvarium: Intact. Visualized paranasal sinuses/mastoid air cells: Diffuse mucosal thickening of the bilateral maxillary sinuses, ethmoid air cells, and left frontal sinus. Posterior fossa: No cerebellar tonsillar herniation. Visualized orbits: Unremarkable. IMPRESSION: 1. No acute intracranial abnormality. 2. Extensive paranasal sinusitis. Please note that all CT scans at this facility use dose modulation, iterative reconstruction, and/or weight-based dosing when appropriate to reduce radiation dose to as low as reasonably achievable. Dictated by Consuelo Ontiveros MD @ 07/14/2022 1:11:02 PM (Electronically Signed)
[2022-07-14 11:49] LABS: C Reactive Protein* 1.8 mg/dL (0.5-1.0)
[2022-07-14 12:21] LABS: Troponin I* < 0.01 ng/mL (0.01-0.04)
[2022-07-14 13:33] VITALS: BP 97/66; PULSE 70; RESP 18; TEMP 36.6
== END 2022-07-14 13:34 | disposition home or self-care (01) ==
PROVIDERS: Emergency Provider Family Medicine; PCP Family Medicine
DX: H60.92 Unspecified otitis externa, left ear (principal); J01.90 Acute sinusitis, unspecified; R26.9 Unspecified abnormalities of gait and mobility; M25.471 Effusion, right ankle; R62.50 Unspecified lack of expected normal physiological development in childhood; G40.909 Epilepsy, unspecified, not intractable, without status epilepticus; Z79.899 Other long term (current) drug therapy; Z88.1 Allergy status to other antibiotic agents; Z20.822 Contact with and (suspected) exposure to COVID-19
CPT/HCPCS: 73620; 36415; 70450; 73600; 80053; 81001; 82150; 83690; 84484; 85025; 86140; 87502; 87634; 87635; 93005; 99285

== ENCOUNTER 2022-12-29 11:34 | Outpatient (CLI) | payer MEDICARE, MEDICAID, SELFPAY | END 2022-12-29 11:35 | disposition home or self-care (01) | LOC: AMB 12-31 12:38 | PROVIDERS: PCP Family Medicine; Visit Provider Family Medicine | DX: R06.09 Other forms of dyspnea (principal); R50.9 Fever, unspecified | CPT/HCPCS: A0425; A0427 ==

== ENCOUNTER 2022-12-29 12:01 | Emergency (ER) | payer MEDICARE, MEDICAID, SELFPAY ==
[2022-12-29] VITALS (29 sets, daily range): BP systolic 82–109; BP diastolic 43–79; PULSE 82–98; RESP 14; TEMP 37.1–37.6; O2SAT 90–95
--- NOTE | 2022-12-29 12:34 | CRLHL7_ITS ---
For Patients: As a result of the Century Cures Act, medical imaging exams and procedure reports are released immediately into your electronic medical record. You may view this report before your referring provider. If you have questions, please contact your health care provider. INDICATION: Seizure, hypoxia. COMPARISON: None. TECHNIQUE: AP portable view. FINDINGS: The cardiomediastinal silhouette and pulmonary vasculature are within normal limits. There is a patchy opacity superimposed over the left upper lung zone suspicious for left upper lobe process, of uncertain etiology. The right lung is clear. The lung volumes are diminished. No pleural effusion or pneumothorax is identified. No acute bone or joint abnormality is seen. IMPRESSION: 1. Diminished lung volumes. 2. Left upper lung zone patchy opacity, suspicious for left upper lobe airspace process of uncertain etiology. Dictated by Nickolas Beckwith MD @ 12/29/2022 1:44:27 PM (Electronically Signed)
--- NOTE | 2022-12-29 12:37 | ED.SEIZURE ---
HPI - Seizure General Chief Complaint: Seizure Stated Complaint: Respiratory issues Time Seen by Provider: 12/29/22 12:20 History of Present Illness HPI Narrative: 42-year-old man presenting via EMS to the emergency department from [facility] with a concern of potential seizure. Does have a seizure disorder managed with lamotrigine. Described as generalized and tonic-clonic. There have been no recent medication changes. I review his seizure plan and it appears that indication for bringing him here is persistent suppressed respiratory effort. Was noted to be 90% on scene. Blood sugar 134. Has not had any apparent recent seizure. Is relatively nonverbal with limited answers to questions. Is a fall risk. Is not known to have fallen or injured himself other than was found with blood about suspected from a lip or oral laceration. Was in usual state of health this morning when received his usual dose of diazepam which is given for mood stabilization. Found later in a somewhat obtunded state as above. Is not answering questions to current state of health. Recently was treated for an apparent sinus infection; completed antibiotic course and seemed to improve. Related Data Home Medications Medication Instructions Recorded Confirmed cholecalciferol (vitamin D3) 25 25 mcg PO DAILY 04/19/22 06/28/22 mcg (1,000 unit) tablet (Vitamin D3) diazepam 5 mg tablet 5 mg PO BID 04/19/22 06/28/22 escitalopram oxalate 10 mg tablet mg 04/19/22 gemfibrozil 600 mg tablet mg 04/19/22 lamotrigine 200 mg tablet 200 mg PO Q12H 04/19/22 06/28/22 propranolol 10 mg tablet mg 04/19/22 propranolol 20 mg tablet 20 mg PO Q8H 04/19/22 06/28/22 quetiapine 100 mg tablet 50 mg PO TID 04/19/22 06/28/22 quetiapine 50 mg tablet 25 mg PO TID 04/19/22 06/28/22 risperidone 2 mg tablet 2 mg PO DAILY 04/19/22 06/28/22 sennosides 8.6 mg tablet (senna) 8.6 mg PO BID 04/19/22 06/28/22 trazodone 50 mg tablet 50 mg PO TID 04/19/22 06/28/22 atorvastatin 20 mg tablet 20 mg PO DAILY 06/28/22 06/28/22 clonazepam 0.5 mg tablet 0.25 mg PO Q8H 06/28/22 06/28/22 escitalopram oxalate 5 mg tablet 10 mg PO DAILY 06/28/22 06/28/22 fluvoxamine 100 mg tablet 100 mg PO BID 06/28/22 06/28/22 multivitamin (One Daily Essential 1 tab PO DAILY 06/28/22 06/28/22 tablet) Previous Rx's Medication Instructions Recorded triamcinolone acetonide 0.1 % 1 applic topical BID #15 grams 04/19/22 topical cream amoxicillin 875 mg-potassium 1 tab PO BID #10 tabs 07/14/22 clavulanate 125 mg tablet ciprofloxacin 0.3 %-dexamethasone 6 drp otic (ear) QID #15 mL 07/14/22 0.1 % ear drops,suspension (Ciprodex) lamotrigine 150 mg tablet 150 mg PO DAILY #30 tabs 12/29/22 Allergies Allergy/AdvReac Type Severity Reaction Status Date / Time Cephalosporins Allergy Mild Rash Verified 06/28/22 13:55 Review of Systems Status of ROS: Reports: unobtainable due to medical condition (However queried staff who accompanies him here today.) [id number] Medical History Intellectual developmental disorder, severe ?F72 - Severe intellectual disabilities (ICD-10) Seizure ?R56.9 - Unspecified convulsions (ICD-10) Social History Smoking Status: Never smoker Do you use any of these nicotine containing products: None Second hand tobacco smoke exposure: No How often do you have a drink containing alcohol: never How often do you have six or more drinks on one occasion: Never AUDIT-C Alcohol total score: 0 Non-prescribed substance use: denies use Exam Narrative: Exam Narrative: Is snoring somewhat in respirations. Does respond to verbal stimuli but briefly. Not answering questions. Head looks to be atraumatic. Eyes are injected. It difficult to test extraocular movements but appear fluid the limited. Pupils are equal and appropriately reactive. Lungs with some congested breathing believes upper airway transmission. Heart in elevated rate in a regular rhythm. Abdomen is soft overweight appears to be nontender. Extremities are without evidence of injury or edema. Well perfused. Oropharynx is rather dry. There is dried Spittle on his mouth. I do not see dental trauma. I can not visualize injury to the oral mucosa lip or tongue at this time. No active bleeding at this time. Smells as if has lost control of bowel; staff suspect this to be the case. Const: Vital Signs, click to edit/add: Vital Signs - 24 hr 12/29/22 12:12 12/29/22 13:30 12/29/22 12:18 Temperature 98.8 F Pulse Rate 94 Pulse Rate [Pulse Oximeter] 95 Respiratory Rate 14 Blood Pressure Blood Pressure [Ri ght Upper Arm] 97/70 104/79 Pulse Oximetry 93 93 Oxygen Delivery Me thod Room Air 12/29/22 12:30 12/29/22 12:31 12/29/22 12:34 Temperature Pulse Rate 82 97 96 Pulse Rate [Pulse Oximeter] Respiratory Rate Blood Pressure 82/43 L 86/64 L Blood Pressure [Ri ght Upper Arm] Pulse Oximetry 94 93 92 Oxygen Delivery Me thod 12/29/22 12:45 12/29/22 13:00 12/29/22 13:04 Temperature Pulse Rate 93 94 95 Pulse Rate [Pulse Oximeter] Respiratory Rate Blood Pressure 98/67 Blood Pressure [Ri ght Upper Arm] Pulse Oximetry 91 91 92 Oxygen Delivery Me thod 12/29/22 13:15 12/29/22 13:31 12/29/22 13:32 Temperature Pulse Rate 97 97 96 Pulse Rate [Pulse Oximeter] Respiratory Rate Blood Pressure 104/79 Blood Pressure [Ri ght Upper Arm] Pulse Oximetry 92 92 92 Oxygen Delivery Me thod 12/29/22 13:45 12/29/22 14:10 12/29/22 14:00 Temperature 99.6 F Pulse Rate 96 98 Pulse Rate [Pulse Oximeter] Respiratory Rate Blood Pressure Blood Pressure [Ri ght Upper Arm] Pulse Oximetry 93 95 Oxygen Delivery Me thod 12/29/22 14:01 12/29/22 14:15 12/29/22 12:33 Temperature Pulse Rate 92 93 Pulse Rate [Pulse Oximeter] Respiratory Rate Blood Pressure 103/68 Blood Pressure [Ri ght Upper Arm] Pulse Oximetry 93 93 92 Oxygen Delivery Me thod 12/29/22 14:30 12/29/22 14:31 12/29/22 14:45 Temperature Pulse Rate 98 95 93 Pulse Rate [Pulse Oximeter] Respiratory Rate Blood Pressure 109/59 L Blood Pressure [Ri ght Upper Arm] Pulse Oximetry 91 94 92 Oxygen Delivery Me thod 12/29/22 15:00 12/29/22 15:01 12/29/22 15:15 Temperature Pulse Rate 95 98 96 Pulse Rate [Pulse Oximeter] Respiratory Rate Blood Pressure 103/71 Blood Pressure [Ri ght Upper Arm] Pulse Oximetry 93 95 92 Oxygen Delivery Me thod 12/29/22 15:30 12/29/22 15:31 12/29/22 15:45 Temperature Pulse Rate 93 91 93 Pulse Rate [Pulse Oximeter] Respiratory Rate Blood Pressure 107/78 Blood Pressure [Ri ght Upper Arm] Pulse Oximetry 93 95 92 Oxygen Delivery Me thod 12/29/22 16:00 12/29/22 16:01 Temperature Pulse Rate 97 97 Pulse Rate [Pulse Oximeter] Respiratory Rate Blood Pressure 95/74 Blood Pressure [Ri ght Upper Arm] Pulse Oximetry 90 94 Oxygen Delivery Me thod Documenting provider has reviewed patient's vital signs: yes Course Vital Signs Vital signs: Initial Vital Signs Respiratory Effort Spontaneous, Non-Labored, Shallow Breathing 12/29/22 12:01 Respiratory Depth Shallow 12/29/22 12:01 Respiratory Pattern Normal 12/29/22 12:01 Vital Signs Temperature 98.8 F 12/29/22 12:12 Pulse Rate 95 12/29/22 12:12 Respiratory Rate 14 12/29/22 12:12 Blood Pressure 97/70 12/29/22 12:12 Pulse Oximetry 93 12/29/22 12:12 Oxygen Delivery Method Room Air 12/29/22 12:12 Temperature 99.6 F 12/29/22 14:10 Pulse Rate 97 12/29/22 16:01 Respiratory Rate 14 12/29/22 12:12 Blood Pressure 95/74 12/29/22 16:01 Pulse Oximetry 94 12/29/22 16:01 Oxygen Delivery Method Room Air 12/29/22 12:12 MDM - Seizure MDM Narrative Medical decision making narrative: Staff attempting to locate when last seizure was. I will call [facility] where his primary neurologist is looks like Dr. Tanja rubio. Will do chest x-ray looking for possible aspiration. Screen for infectious etiology. Monitor for further mental clearing. I do not see indication for head imaging at this time. Did manage to speak with Dr. Coello the new neurologist for Mr. Rinaldi. He is recommending increasing lamotrigine to 300 mg the morning and 350 mg in the evening. Staff reported to me that last seizure that they are aware of was in May of 2022. Doctor Oumou was only aware of more remote seizures. Labs overall reassuring though would note rather elevated CRP of 19.8 Over time in the ER was increasingly responsive, alert though still preferring to sleep. Will also be treating what looks to be an evolving infiltrate in the left upper lung see patient discharge plan Medical Records Attestation: I reviewed the patient's medical records. Lab Data Attestation: I reviewed the patient's lab results. Labs: Lab Results 12/29/22 12/29/22 Range/Units 13:30 13:40 WBC 11.65 H (4.50-11.00) K/uL RBC 4.18 L (4.30-5.90) m/uL Hgb 12.1 L (13.5-17.5) gm/dL Hct 36.3 L (37.0-53.0) % MCV 87 (80-100) fL MCH 29 (26-34) pg MCHC 33 (32-36) gm/dL RDW Coeff of Dileep 13.8 (11.5-15.5) % Plt Count 132 L (140-440) K/uL Neut % (Auto) 70.5 (42.0-72.0) % Lymph % (Auto) 19.9 L (20-44) % Moca % (Auto) 8.9 (0.0-11.0) % Eos % (Auto) 0.3 (0.0-7.0) % Baso % (Auto) 0.1 (0.0-3.0) % Neut # (Auto) 8.20 H (1.7-7.0) K/uL Lymph # (Auto) 2.30 (0.90-2.90) K/uL Moca # (Auto) 1.00 H (0.00-0.90) K/UL Eos # (Auto) 0.00 (0.00-0.50) K/uL Baso # (Auto) 0.00 (0.00-0.30) K/uL VBG pH 7.405 (7.32-7.43) VBG pCO2 43 (40-50) mmHG VBG pO2 41.5 (25-47) mmHG VBG HCO3 27 (21-28) mmol/L Sodium 135 (135-149) mmol/L Potassium 3.6 (3.6-5.1) mmol/L Chloride 103 (96-114) mmol/L Carbon Dioxide 27 (20-32) mmol/L BUN 25 H (5-24) mg/dL Creatinine 1.2 (0.5-1.5) mg/dL Estimated GFR 76 ml/min Glucose 101 (60-115) mg/dL Calcium 8.3 L (8.4-10.6) mg/dL Total Bilirubin 0.5 (0.1-1.5) mg/dL Direct Bilirubin 0.3 (0.0-0.5) mg/dL AST 31 (12-35) U/L ALT 29 (4-50) U/L Alkaline Phosphatase 117 (40-150) U/L C-Reactive Protein 19.8 H (0.5-1.0) mg/dL Total Protein 6.7 (6.0-8.3) g/dL Albumin 3.8 (3.3-5.0) g/dL SARS-CoV-2 (PCR) Negative SARS-CoV-2 (Negative) Influenza Type A (PCR) Negative PCR FLU A (Negative) Influenza Type B (PCR) Negative PCR FLU B (Negative) RSV (PCR) Negative PCR RSV (Negative) Discharge Plan Discharge Clinical Impression: Pulmonary infiltrate, Seizure, Altered mental status Patient Disposition: Home w/ Parent or Adult Condition: Improved Additional Instructions: I did speak with Dr. Matt Coello who is your new neurologist with [facility]. He was aware of rather remote seizure but not as he reported to me here today, your last seizure in May of 2022. At this point increase your lamotrigine to 300 mg in the morning and 350 mg in the evening. Dr. Coello would like you to schedule a follow-up with him as well within the next couple of weeks. Doxycycline from [facility] for on apparent infiltrate in your left upper lung. I would follow up for reimaging of your lungs in 3-4 weeks. Return for persistent increasing shortness of breath, chest pain, increasing fever. Prescriptions: New lamotrigine 150 mg tablet 150 mg PO DAILY Qty: 30 0RF Rx Instructions: Add to 200 mg tablets in the evening to make a total of 350 mg per evening dose No Action sennosides [senna] 8.6 mg tablet 8.6 mg PO BID lamotrigine 200 mg tablet 200 mg PO Q12H trazodone 50 mg tablet 50 mg PO TID quetiapine 100 mg tablet 50 mg PO TID risperidone 2 mg tablet 2 mg PO DAILY propranolol 10 mg tablet gemfibrozil 600 mg tablet propranolol 20 mg tablet 20 mg PO Q8H diazepam 5 mg tablet 5 mg PO BID escitalopram oxalate 10 mg tablet quetiapine 50 mg tablet 25 mg PO TID cholecalciferol (vitamin D3) [Vitamin D3] 25 mcg (1,000 unit) tablet 25 mcg PO DAILY triamcinolone acetonide 0.1 % cream 1 applic topical BID Qty: 15 0RF atorvastatin 20 mg tablet 20 mg PO DAILY clonazepam 0.5 mg tablet 0.25 mg PO Q8H escitalopram oxalate 5 mg tablet 10 mg PO DAILY fluvoxamine 100 mg tablet 100 mg PO BID multivitamin [One Daily Essential] Tablet 1 tab PO DAILY amoxicillin-pot clavulanate 875-125 mg tablet 1 tab PO BID Qty: 10 0RF ciprofloxacin-dexamethasone [Ciprodex] 0.3-0.1 % drops,suspension 6 drp otic (ear) QID Qty: 15 0RF Follow Up/Referrals: Rosalio Conner MD [Primary Care Provider] - Stand Alone Forms: [facility] Info Instructions
[2022-12-29] MEDS: 0.9 % SODIUM CHLORIDE 1000 ml 1,000 ML IV (13:07)
[2022-12-29 13:56] LABS: HCO3 VBG 27 mmol/L (21-28); PCO2 VBG 43 mmHG (40-50); PO2 VBG 41.5 mmHG (25-47); pH VBG 7.405 (7.32-7.43)
--- NOTE | 2022-12-29 13:57 | ED.NURSE ---
Patient was difficult venipunctured. Labs delayed.
[2022-12-29 14:00] LABS: Basophils Percent Auto 0.1 % (0.0-3.0); Eosinophils Percent Auto 0.3 % (0.0-7.0); Hematocrit 36.3 % (37.0-53.0); Hemoglobin* 12.1 gm/dL (13.5-17.5); Immature Granulocytes Pct Auto 0.3 %; Lymphocytes Percent Auto 19.9 % (20-44); Mean Corpuscular HGB Conc 33 gm/dL (32-36); Mean Corpuscular Hemoglobin 29 pg (26-34); Mean Corpuscular Volume 87 fL (80-100); Monocytes Percent Auto 8.9 % (0.0-11.0); Neutrophils Percent Auto 70.5 % (42.0-72.0); Platelet Count* 132 K/uL (140-440); RDW Coefficient of Variation % 13.8 % (11.5-15.5); Red Blood Count 4.18 m/uL (4.30-5.90); White Blood Count* 11.65 K/uL (4.50-11.00)
[2022-12-29 14:01] LABS: Slide Review Reflex No
[2022-12-29 14:28] LABS: Albumin* 3.8 g/dL (3.3-5.0); Chloride* 103 mmol/L (96-114); Potassium* 3.6 mmol/L (3.6-5.1); Sodium* 135 mmol/L (135-149)
[2022-12-29 14:30] LABS: Creatinine* 1.2 mg/dL (0.5-1.5); Estimated Glomerular Filt Rate 76 ml/min
[2022-12-29 14:31] LABS: Alanine Aminotransferase* 29 U/L (4-50); Alkaline Phosphatase* 117 U/L (40-150); Aspartate Amino Transferase* 31 U/L (12-35); Bilirubin Direct* 0.3 mg/dL (0.0-0.5); Bilirubin Total* 0.5 mg/dL (0.1-1.5); Blood Urea Nitrogen* 25 mg/dL (5-24); Carbon Dioxide* 27 mmol/L (20-32); Glucose* 101 mg/dL (60-115); Total Protein* 6.7 g/dL (6.0-8.3)
[2022-12-29 14:32] LABS: Calcium* 8.3 mg/dL (8.4-10.6)
[2022-12-29 14:51] LABS: C Reactive Protein* 19.8 mg/dL (0.5-1.0)
[2022-12-29 15:11] LABS: PCR FLU A Negative PCR FLU A (Negative); PCR FLU B Negative PCR FLU B (Negative); PCR RSV Negative PCR RSV (Negative)
[2022-12-29 15:14] LABS: SARS PCR* Negative SARS-CoV-2 (Negative)
== END 2022-12-29 17:19 | disposition home or self-care (01) ==
PROVIDERS: Emergency Provider Family Medicine; PCP Family Medicine
DX: R41.82 Altered mental status, unspecified (principal)
CPT/HCPCS: 36415; 71045; 80048; 80076; 80175; 81001; 82803; 85025; 86140; 87631; 94761; 99284; J7030

== ENCOUNTER 2022-12-30 01:59 | Inpatient (IN) | payer MEDICARE, MEDICAID, SELFPAY ==
[2022-12-30] VITALS (35 sets, daily range): BP systolic 85–120; BP diastolic 59–86; PULSE 82–104; RESP 18–26; TEMP 36.6–37.8; O2SAT 89–100
--- NOTE | 2022-12-30 02:13 | ED.GENADULT ---
HPI - General Adult General Time Seen by Provider: 02:13 Date Seen: 12/30/22 Chief complaint: Shortness of Breath/Dyspnea Stated complaint: pneumonia, low O2 sats Time Seen by Provider: 12/30/22 02:06 Source: patient, EMS, old records reviewed and other (Caregiver) Limitations: no limitations History of Present Illness HPI narrative: 42-year-old male with history of seizure disorder and developmental delay, minimally verbal at baseline, presents with breathing difficulty from [facility]. Review of chart shows the patient was seen earlier today with seizure, at that time lamotrigine was increased and chest x-ray demonstrated evolving upper lobe infiltrate consistent with possible pneumonia co white blood cell count was slightly elevated. Patient was started on doxycycline, review of chart shows patient was also recently on Augmentin for sinus infection. Returns tonight with continued breathing difficulty. Staff who is with him tonight cannot provide much information. Apparently since his diagnosis of pneumonia earlier today they spot checks oxygen and was found to be in the 80s. Ate dinner tonight, then went to bed. Has not received any medications other than usual. Temperature at home was 97. Related Data Home Medications Medication Instructions Recorded Confirmed cholecalciferol (vitamin D3) 25 25 mcg PO DAILY 04/19/22 06/28/22 mcg (1,000 unit) tablet (Vitamin D3) diazepam 5 mg tablet 5 mg PO BID 04/19/22 06/28/22 escitalopram oxalate 10 mg tablet mg 04/19/22 gemfibrozil 600 mg tablet mg 04/19/22 lamotrigine 200 mg tablet 200 mg PO Q12H 04/19/22 06/28/22 propranolol 10 mg tablet mg 04/19/22 propranolol 20 mg tablet 20 mg PO Q8H 04/19/22 06/28/22 quetiapine 100 mg tablet 50 mg PO TID 04/19/22 06/28/22 quetiapine 50 mg tablet 25 mg PO TID 04/19/22 06/28/22 risperidone 2 mg tablet 2 mg PO DAILY 04/19/22 06/28/22 sennosides 8.6 mg tablet (senna) 8.6 mg PO BID 04/19/22 06/28/22 trazodone 50 mg tablet 50 mg PO TID 04/19/22 06/28/22 atorvastatin 20 mg tablet 20 mg PO DAILY 06/28/22 06/28/22 clonazepam 0.5 mg tablet 0.25 mg PO Q8H 06/28/22 06/28/22 escitalopram oxalate 5 mg tablet 10 mg PO DAILY 06/28/22 06/28/22 fluvoxamine 100 mg tablet 100 mg PO BID 06/28/22 06/28/22 multivitamin (One Daily Essential 1 tab PO DAILY 06/28/22 06/28/22 tablet) Previous Rx's Medication Instructions Recorded triamcinolone acetonide 0.1 % 1 applic topical BID #15 grams 04/19/22 topical cream amoxicillin 875 mg-potassium 1 tab PO BID #10 tabs 07/14/22 clavulanate 125 mg tablet ciprofloxacin 0.3 %-dexamethasone 6 drp otic (ear) QID #15 mL 07/14/22 0.1 % ear drops,suspension (Ciprodex) lamotrigine 150 mg tablet 150 mg PO DAILY #30 tabs 12/29/22 Allergies Allergy/AdvReac Type Severity Reaction Status Date / Time Cephalosporins Allergy Mild Rash Verified 06/28/22 13:55 Review of Systems Status of ROS: Reports: 10 or more systems reviewed and unremarkable except as noted in History and below [facility] Medical History Intellectual developmental disorder, severe ?F72 - Severe intellectual disabilities (ICD-10) Seizure ?R56.9 - Unspecified convulsions (ICD-10) Social History Smoking Status: Never smoker Do you use any of these nicotine containing products: None Second hand tobacco smoke exposure: No How often do you have a drink containing alcohol: never How often do you have six or more drinks on one occasion: Never AUDIT-C Alcohol total score: 0 Non-prescribed substance use: denies use Exam Narrative: Exam Narrative: General: Well-developed and well-nourished, no acute distress Head: Atraumatic and normocephalic Eyes: Pupils are equal reactive, extraocular motions intact, conjunctiva clear ENT: External nose and ears are normal, posterior pharynx without erythema or exudate Neck: No midline cervical tenderness, full spontaneous range of motion the neck, trachea midline, no adenopathy Heart: Regular rate and rhythm no murmurs or thrills Lungs: Upper airway noises, expiratory wheezes bilaterally Abdomen: Soft, nontender, nondistended with active bowel sounds Musculoskeletal: No tenderness, deformity, trace bilateral foot edema Neurologic: Says ow to pain but otherwise resting with eyes closed Psych: Mood and affect are appropriate Skin: No rashes Const: Vital Signs, click to edit/add: Vital Signs - 24 hr 12/30/22 02:04 12/30/22 02:19 12/30/22 03:08 Temperature 98.9 F Pulse Rate Pulse Rate [Pulse Oximeter] 91 90 93 Respiratory Rate 18 20 24 Blood Pressure Blood Pressure [Le ft Upper Arm] 89/61 L 87/70 L 88/67 L Pulse Oximetry 89 94 97 Oxygen Delivery Me thod Room Air OxyMask OxyMask Oxygen Flow Rate 2 12/30/22 06:00 12/30/22 03:11 12/30/22 03:12 Temperature Pulse Rate 97 94 93 Pulse Rate [Pulse Oximeter] Respiratory Rate 18 Blood Pressure 104/86 88/68 L Blood Pressure [Le ft Upper Arm] Pulse Oximetry 99 97 98 Oxygen Delivery Me thod OxyMask Oxygen Flow Rate 2 12/30/22 03:46 12/30/22 03:48 12/30/22 04:00 Temperature Pulse Rate 96 97 97 Pulse Rate [Pulse Oximeter] Respiratory Rate Blood Pressure 88/69 L Blood Pressure [Le ft Upper Arm] Pulse Oximetry 94 92 96 Oxygen Delivery Me thod Oxygen Flow Rate 12/30/22 04:01 12/30/22 04:20 12/30/22 04:21 Temperature Pulse Rate 97 97 99 Pulse Rate [Pulse Oximeter] Respiratory Rate Blood Pressure 99/67 87/63 L Blood Pressure [Le ft Upper Arm] Pulse Oximetry 97 95 97 Oxygen Delivery Me thod Oxygen Flow Rate 12/30/22 04:28 12/30/22 04:30 12/30/22 04:37 Temperature Pulse Rate 95 99 96 Pulse Rate [Pulse Oximeter] Respiratory Rate Blood Pressure 85/65 L 93/68 95/70 Blood Pressure [Le ft Upper Arm] Pulse Oximetry 97 96 97 Oxygen Delivery Me thod Oxygen Flow Rate 12/30/22 04:40 12/30/22 04:41 12/30/22 05:00 Temperature Pulse Rate 95 96 96 Pulse Rate [Pulse Oximeter] Respiratory Rate Blood Pressure 102/71 Blood Pressure [Le ft Upper Arm] Pulse Oximetry 97 98 98 Oxygen Delivery Me thod Oxygen Flow Rate 12/30/22 05:20 12/30/22 05:24 12/30/22 05:40 Temperature Pulse Rate 97 100 96 Pulse Rate [Pulse Oximeter] Respiratory Rate Blood Pressure Blood Pressure [Le ft Upper Arm] Pulse Oximetry 94 100 98 Oxygen Delivery Me thod Oxygen Flow Rate 12/30/22 05:43 12/30/22 05:58 12/30/22 05:59 Temperature Pulse Rate 98 98 96 Pulse Rate [Pulse Oximeter] Respiratory Rate Blood Pressure 96/70 104/86 Blood Pressure [Le ft Upper Arm] Pulse Oximetry 98 97 98 Oxygen Delivery Me thod Oxygen Flow Rate 12/30/22 06:00 12/30/22 06:01 Temperature Pulse Rate 96 97 Pulse Rate [Pulse Oximeter] Respiratory Rate Blood Pressure 108/73 Blood Pressure [Le ft Upper Arm] Pulse Oximetry 99 98 Oxygen Delivery Me thod Oxygen Flow Rate Course Course Hospital Course: Patient seen and evaluated on arrival. Patient with known history of seizure disorder, seen earlier with seizure and concern for possible pneumonia, started on doxycycline. Returns tonight with breathing difficulty and hypoxia from his senior care. On initial exam here, patient is sleeping, does withdraw to pain and says ow, per staff patient is close to his baseline. He is hypotensive on initial arrival, pale, wheezes on respiratory exam. No tachycardia and afebrile here. Concern for possible hypoxic respiratory failure secondary to sepsis from pneumonia, heart failure possible as well. Pulmonary embolism considered but less likely clinically. Labs are ordered along with CT scan of the chest to more closely evaluate lung parenchyma. Given altered mentation reported earlier, head CT is ordered. Broaden antibiotic coverage will be provided as well with Zosyn and vancomycin given hypotension in setting of possible sepsis. Reevaluation(s) Reevaluation #1: Labs independently interpreted by me demonstrate normal white blood cell count, reassuring basic panel, stable hemoglobin, normal lactate. Troponin is slightly elevated from baseline, EKG is normal. This likely represents strain and not acute coronary syndrome but repeat troponin will be done at 2:00 a.m.. Time: 03:53 Reevaluation #2: CT scan of the chest independently interpreted by me demonstrates bilateral infiltrates consistent with pneumonia although poor quality study due to respiratory movement. CT scan of the head independently interpreted by me demonstrates no acute intracranial pathology, although again limited by movement. Time: 03:59 Reevaluation #3: Repeat troponin 0.13 which likely represents cardiac strain secondary to hypoxia hypotension, acute coronary syndrome unlikely. spoke with Dr. Gardiner [facility] who agrees, does recommend echocardiogram to evaluate EF for stress/sepsis related cardiomyopathy but otherwise does not recommend further exploration for ACS. Updated developed hospitalist. Blood pressures have stabilized in the high 90s over 60s which is close to patient's normal. Time: 05:58 Additional Reevaluation(s): 6:15 a.m. blood pressures continued to be 100s / 60s, patient is stable to transfer to the floor Vital Signs Vital signs: Initial Vital Signs Temperature 98.9 F 12/30/22 02:04 Temperature Source Temporal Artery Scan 12/30/22 02:04 Pulse Rate 91 12/30/22 02:04 Respiratory Rate 18 12/30/22 02:04 Blood Pressure 89/61 L 12/30/22 02:04 Blood Pressure Mean 70 12/30/22 02:04 Pulse Oximetry 89 12/30/22 02:04 Oxygen Delivery Method Room Air 12/30/22 02:04 Vital Signs Temperature 98.9 F 12/30/22 02:04 Pulse Rate 91 12/30/22 02:04 Respiratory Rate 18 12/30/22 02:04 Blood Pressure 89/61 L 12/30/22 02:04 Pulse Oximetry 89 12/30/22 02:04 Oxygen Delivery Method Room Air 12/30/22 02:04 Temperature 98.9 F 12/30/22 02:04 Pulse Rate 97 12/30/22 06:01 Respiratory Rate 18 12/30/22 06:00 Blood Pressure 108/73 12/30/22 06:01 Pulse Oximetry 98 12/30/22 06:01 Oxygen Delivery Method OxyMask 12/30/22 06:00 Oxygen Flow Rate 2 12/30/22 06:00 Medical Decision Making Medical Records Medical records reviewed: Yes I reviewed the patient's medical records Lab Data Lab results reviewed: Yes I reviewed the patient's lab results Labs: Lab Results 12/30/22 12/30/22 12/30/22 Range/Units 02:31 02:38 04:45 WBC 10.40 (4.50-11.00) K/uL RBC 4.26 L (4.30-5.90) m/uL Hgb 12.3 L (13.5-17.5) gm/dL Hct 37.2 (37.0-53.0) % MCV 87 (80-100) fL MCH 29 (26-34) pg MCHC 33 (32-36) gm/dL RDW Coeff of Dileep 14.3 (11.5-15.5) % Plt Count 140 (140-440) K/uL Neut % (Auto) 69.8 (42.0-72.0) % Lymph % (Auto) 21.6 (20-44) % [place] % (Auto) 8.1 (0.0-11.0) % Eos % (Auto) 0.1 (0.0-7.0) % Baso % (Auto) 0.1 (0.0-3.0) % Neut # (Auto) 7.26 H (1.7-7.0) K/uL Lymph # (Auto) 2.25 (0.90-2.90) K/uL [place] # (Auto) 0.80 (0.00-0.90) K/UL Eos # (Auto) 0.01 (0.00-0.50) K/uL Baso # (Auto) 0.01 (0.00-0.30) K/uL VBG pH 7.385 (7.32-7.43) VBG pCO2 47 (40-50) mmHG VBG pO2 31.4 (25-47) mmHG VBG HCO3 28 (21-28) mmol/L Sodium 135 (135-149) mmol/L Potassium 3.7 (3.6-5.1) mmol/L Chloride 103 (96-114) mmol/L Carbon Dioxide 26 (20-32) mmol/L BUN 18 (5-24) mg/dL Creatinine 1.0 (0.5-1.5) mg/dL Estimated GFR 95 ml/min Glucose 107 (60-115) mg/dL Lactate 1.3 (0.5-1.9) mmol/L Calcium 8.4 (8.4-10.6) mg/dL Magnesium 1.8 (1.5-2.6) mg/dL Total Bilirubin 0.6 (0.1-1.5) mg/dL Direct Bilirubin 0.4 (0.0-0.5) mg/dL AST 49 H (12-35) U/L ALT 41 (4-50) U/L Alkaline Phosphatase 139 (40-150) U/L NT-Pro-B Natriuret Pep 1160 pg/mL Total Protein 7.2 (6.0-8.3) g/dL Albumin 4.1 (3.3-5.0) g/dL POC Troponin I 0.06 H 0.13 H (0.01-0.04) ng/ml ECG Data Attestation: I personally reviewed and interpreted this ECG as follows: Prior ECG tracings: not available for review Interpretation: Performed at 2:46 p.m., normal sinus rhythm rate 94, no acute ST elevations or depressions, removed who axis. No prior for comparison. Critical Care Time Critical Care Time Critical Care Time: Yes (Acute respiratory failure with hypoxia) Attestation: The patient required my highest level preparedness to intervene emergently and I personally spent this critical care time directly and personally managing the patient. This critical care time included: Obtaining a history; Examining the patient; Pulse oximetry; Ordering and reviewing of studies; Arranging urgent treatment with development of a management plan; Evaluation of patients response to treatment; Frequent reassessment discussions with other providers. This critical care time was performed to assess and manage the high probability of imminent life-threatening deterioration that could result in multiorgan failure. It was exclusive of separate billable procedures and treating other patients and teaching time. Total Critical Care Time in Minutes: 180 Discharge Plan Discharge Clinical Impression: Cognitive developmental delay, Community acquired pneumonia, Seizure disorder Prescriptions: No Action sennosides [senna] 8.6 mg tablet 8.6 mg PO BID lamotrigine 200 mg tablet 200 mg PO Q12H trazodone 50 mg tablet 50 mg PO TID quetiapine 100 mg tablet 50 mg PO TID risperidone 2 mg tablet 2 mg PO DAILY propranolol 10 mg tablet gemfibrozil 600 mg tablet propranolol 20 mg tablet 20 mg PO Q8H diazepam 5 mg tablet 5 mg PO BID escitalopram oxalate 10 mg tablet quetiapine 50 mg tablet 25 mg PO TID cholecalciferol (vitamin D3) [Vitamin D3] 25 mcg (1,000 unit) tablet 25 mcg PO DAILY triamcinolone acetonide 0.1 % cream 1 applic topical BID Qty: 15 0RF atorvastatin 20 mg tablet 20 mg PO DAILY clonazepam 0.5 mg tablet 0.25 mg PO Q8H escitalopram oxalate 5 mg tablet 10 mg PO DAILY fluvoxamine 100 mg tablet 100 mg PO BID multivitamin [One Daily Essential] Tablet 1 tab PO DAILY amoxicillin-pot clavulanate 875-125 mg tablet 1 tab PO BID Qty: 10 0RF ciprofloxacin-dexamethasone [Ciprodex] 0.3-0.1 % drops,suspension 6 drp otic (ear) QID Qty: 15 0RF lamotrigine 150 mg tablet 150 mg PO DAILY Qty: 30 0RF Rx Instructions: Add to 200 mg tablets in the evening to make a total of 350 mg per evening dose Follow Up/Referrals: Rosalio Conner MD [Primary Care Provider] -
[2022-12-30] MEDS: 0.9 % SODIUM CHLORIDE 1000 ml 1,000 ML IV ×2 (02:30→08:10)
--- NOTE | 2022-12-30 02:31 | CRLHL7_ITS ---
For Patients: As a result of the Century Cures Act, medical imaging exams and procedure reports are released immediately into your electronic medical record. You may view this report before your referring provider. If you have questions, please contact your health care provider. INDICATION: Altered mental status TECHNIQUE: Head CT without contrast. COMPARISON: July 14, 2022 FINDINGS: CSF spaces: Within normal limits for age. Brain parenchyma: Normal mederos-white differentiation no sign of mass, hemorrhage, or midline shift. Skull base and calvarium: The visualized paranasal sinuses and mastoid air cells demonstrate no acute or significant findings. The visualized orbits are grossly unremarkable. No skull fractures. IMPRESSION: No acute abnormality. Please note that all CT scans at this facility use dose modulation, iterative reconstruction, and/or weight-based dosing when appropriate to reduce radiation dose to as low as reasonably achievable. Dictated by Carlene Tyler MD @ 12/30/2022 4:09:58 AM (Electronically Signed)
--- NOTE | 2022-12-30 02:31 | CRLHL7_ITS ---
For Patients: As a result of the Century Cures Act, medical imaging exams and procedure reports are released immediately into your electronic medical record. You may view this report before your referring provider. If you have questions, please contact your health care provider. INDICATION: Hypoxia TECHNIQUE: CT chest without contrast. COMPARISON: Chest radiograph December 29, 2022, chest CT March 15, 2021 FINDINGS: Cardiovascular structures: Heart size is normal. Thoracic aorta and main pulmonary artery are normal in caliber. Mediastinum and pat: No sign of mass or adenopathy. Calcified mediastinal lymph nodes. Lungs: Patchy airspace opacities scattered throughout the left lung and within the right lower lobe. Calcified granuloma right lower lobe Pleura and pericardium: No effusions. Chest wall and axilla: No mass or adenopathy. Upper abdomen: Punctate calcifications in the spleen liver likely due to prior granulomatous disease. Mild splenomegaly measuring 14.5 cm. Bones: No significant findings. IMPRESSION: Patchy bilateral airspace opacities consistent with pneumonia. New, mild splenomegaly. Please note that all CT scans at this facility use dose modulation, iterative reconstruction, and/or weight-based dosing when appropriate to reduce radiation dose to as low as reasonably achievable. Dictated by Carlene Tyler MD @ 12/30/2022 4:14:58 AM (Electronically Signed)
[2022-12-30 02:44] LABS: HCO3 VBG 28 mmol/L (21-28); PCO2 VBG 47 mmHG (40-50); PO2 VBG 31.4 mmHG (25-47); pH VBG 7.385 (7.32-7.43)
[2022-12-30 02:46] LABS: Basophils Absolute Auto 0.01 K/uL (0.00-0.30); Basophils Percent Auto 0.1 % (0.0-3.0); Eosinophils Absolute Auto 0.01 K/uL (0.00-0.50); Eosinophils Percent Auto 0.1 % (0.0-7.0); Hematocrit 37.2 % (37.0-53.0); Hemoglobin* 12.3 gm/dL (13.5-17.5); Immature Granulocytes Abs Auto 0.03 K/uL (0.00-0.30); Immature Granulocytes Pct Auto 0.3 %; Lactate* 1.3 mmol/L (0.5-1.9); Lymphocytes Absolute Auto 2.25 K/uL (0.90-2.90); Lymphocytes Percent Auto 21.6 % (20-44); Mean Corpuscular HGB Conc 33 gm/dL (32-36); Mean Corpuscular Hemoglobin 29 pg (26-34); Mean Corpuscular Volume 87 fL (80-100); Monocytes Percent Auto 8.1 % (0.0-11.0); Neutrophils Absolute Auto 7.26 K/uL (1.7-7.0); Neutrophils Percent Auto 69.8 % (42.0-72.0); Platelet Count* 140 K/uL (140-440); RDW Coefficient of Variation % 14.3 % (11.5-15.5); Red Blood Count 4.26 m/uL (4.30-5.90)
[2022-12-30 02:47] LABS: Slide Review Reflex No
[2022-12-30 02:59] LABS: Albumin* 4.1 g/dL (3.3-5.0); Chloride* 103 mmol/L (96-114)
[2022-12-30 03:00] LABS: Potassium* 3.7 mmol/L (3.6-5.1); Sodium* 135 mmol/L (135-149)
[2022-12-30 03:02] LABS: Aspartate Amino Transferase* 49 U/L (12-35); Bilirubin Direct* 0.4 mg/dL (0.0-0.5); Bilirubin Total* 0.6 mg/dL (0.1-1.5); Carbon Dioxide* 26 mmol/L (20-32); Estimated Glomerular Filt Rate 95 ml/min; Total Protein* 7.2 g/dL (6.0-8.3)
[2022-12-30 03:03] LABS: Alanine Aminotransferase* 41 U/L (4-50); Alkaline Phosphatase* 139 U/L (40-150); Blood Urea Nitrogen* 18 mg/dL (5-24); Calcium* 8.4 mg/dL (8.4-10.6); Glucose* 107 mg/dL (60-115); Magnesium* 1.8 mg/dL (1.5-2.6)
[2022-12-30] MEDS: PIPERACILLIN/TAZOBACTAM 3.375 GM in 0.9 % SODIUM CHLORIDE Mini-bag 100 ML IVPB ×4 (03:07→21:19)
[2022-12-30 03:14] LABS: NT Pro B Type NatriureticPept* 1160 pg/mL
[2022-12-30 03:19] LABS: Troponin, Point-of-Care* 0.06 ng/ml (0.01-0.04)
[2022-12-30 05:17] LABS: Troponin, Point-of-Care* 0.13 ng/ml (0.01-0.04)
--- NOTE | 2022-12-30 06:48 | PC.NURSE ---
patient to Med/surg room CU3, katherine RN resumes care
[2022-12-30] MEDS: AZITHROMYCIN 250 MG TABLET 500 MG PO (09:03)
[2022-12-30] MEDS: ACETAMINOPHEN 325 MG TABLET 650 MG PO (11:57)
--- NOTE | 2022-12-30 14:51 | P.IMHP_ITS ---
Hospitalist- H&P: HPI History of Present Illness Date Seen: 12/30/22 Chief complaint: pneumonia, low O2 sats Narrative: Saulo Rinaldi is a 42-year-old male with history of seizure disorder and developmental delay, minimally verbal at baseline, presents with breathing difficulty from [facility].? Review of chart shows the patient was seen earlier today with seizure, at that time lamotrigine was increased and chest x-ray demonstrated evolving upper lobe infiltrate consistent with possible pneumonia co white blood cell count was slightly elevated.? Patient was started on doxycycline, review of chart shows patient was also recently on Augmentin for sinus infection.? Returns tonight with continued breathing difficulty. In the emergency department earlier with seizure and concern for possible pneumonia, started on doxycycline.? Returns tonight with breathing difficulty and hypoxia from his long-term.? On initial exam here, patient is sleeping, does withdraw to pain and says ow, per staff patient is close to his baseline.? He is hypotensive on initial arrival, pale, wheezes on respiratory exam.? No tachycardia and afebrile here.? Concern for possible hypoxic respiratory failure secondary to sepsis from pneumonia, heart failure possible as well.? Pulmonary embolism considered but less likely clinically.? Labs are ordered along with CT scan of the chest to more closely evaluate lung parenchyma.? Given altered mentation reported earlier, head CT is ordered.? Broaden antibiotic coverage will be provided as well with Zosyn and vancomycin given hypotension in setting of possible sepsis. When I see the patient after admission. He is unarousable. He was noted by nurses to ambulate to the bathroom a few minutes before I saw him. He has increased work of breathing and increased rate of breathing requiring oxygen to maintain his O2 sats. Unable to get any further history other than from the medical record. Review of Systems Narrative: Unable to obtain except from the medical record [facility] Medical History (Updated 12/30/22 @ 15:[address] MD) Chronic constipation ?K59.09 - Other constipation (ICD-10) Epilepsy ?G40.909 - Epilepsy, unspecified, not intractable, without status epilepticus (ICD-10) Hyperlipidemia ?E78.5 - Hyperlipidemia, unspecified (ICD-10) Intellectual developmental disorder, severe ?F72 - Severe intellectual disabilities (ICD-10) Intermittent explosive disorder ?F63.81 - Intermittent explosive disorder (ICD-10) Obesity ?E66.9 - Obesity, unspecified (ICD-10) OCD (obsessive compulsive disorder) ?F42.9 - Obsessive-compulsive disorder, unspecified (ICD-10) 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 Sees Dr. Conner for primary care. code status is full. He does not smoke or drink alcohol Highest level of school completed/degree received: don't know Smoking Status: Never smoker Do you use any of these nicotine containing products: None Second hand tobacco smoke exposure: No How often do you have a drink containing alcohol: never How often do you have six or more drinks on one occasion: Never AUDIT-C Alcohol total score: 0 Non-prescribed substance use: denies use service: No Meds Home Medications and Allergies Home Medications Medication Instructions Recorded Confirmed Type cholecalciferol (vitamin D3) 25 25 mcg PO DAILY 04/19/22 12/30/22 History mcg (1,000 unit) tablet (Vitamin D3) diazepam 5 mg tablet 5 mg PO BID 04/19/22 12/30/22 History escitalopram oxalate 10 mg tablet 10 mg PO DAILY 04/19/22 12/30/22 History gemfibrozil 600 mg tablet 600 mg PO BID 04/19/22 12/30/22 History lamotrigine 200 mg tablet 200 mg PO Q12H 04/19/22 12/30/22 History propranolol 20 mg tablet 20 mg PO Q8H 04/19/22 12/30/22 History quetiapine 100 mg tablet 100 mg PO TID 04/19/22 12/30/22 History risperidone 2 mg tablet 3 mg PO QAM 04/19/22 12/30/22 History sennosides 8.6 mg tablet (senna) 8.6 mg PO BID 04/19/22 12/30/22 History trazodone 50 mg tablet 50 mg PO TID 04/19/22 12/30/22 History atorvastatin 20 mg tablet 20 mg PO DAILY 06/28/22 12/30/22 History multivitamin (One Daily Essential 1 tab PO DAILY 06/28/22 12/30/22 History tablet) risperidone 1 mg tablet 3.5 mg PO QPM 12/30/22 12/30/22 History Allergies Allergy/AdvReac Type Severity Reaction Status Date / Time Cephalosporins Allergy Mild Rash Verified 06/28/22 13:55 Exam Narrative: Exam Narrative: He is sleeping and I am unable to arouse him. He does withdraw to pain and resist some aspects of physical examination. Nursing staff note that he was able to ambulate to the bathroom a few minutes before I saw him. He has increased rate and work of breathing. Rhonchus breath sounds are noted. Eyes are normal. No nystagmus or tonic clonic movements. No facial asymmetry. Oropharynx with small airway. Somewhat sonorous breathing. Neck is supple without mass or adenopathy. Respirations with relatively diffuse mild rhonchi and moderate basilar crackles bilaterally. Increased rate and work of breathing. No wheezing or prolonged expiratory phase. Cardiovascular: S1, S2, regular tachycardia. No murmur gallop or rub. Abdomen: Bowel sounds active. Abdomen is soft without tenderness or mass. External genitalia normal. Extr emities normal. Hands and feet are somewhat cool to touch was somewhat sluggish capillary refill. Const: Vital Signs, click to edit/add: Vital Signs - 24 hr 12/30/22 02:04 12/30/22 02:19 12/30/22 03:08 Temperature 98.9 F Pulse Rate Pulse Rate [Pulse Oximeter] 91 90 93 Respiratory Rate 18 20 24 Blood Pressure Blood Pressure [Le ft Upper Arm] 89/61 L 87/70 L 88/67 L Blood Pressure [Ri ght Arm] Pulse Oximetry 89 94 97 Oxygen Delivery Me thod Room Air OxyMask OxyMask Oxygen Flow Rate 2 12/30/22 06:00 12/30/22 03:11 12/30/22 03:12 Temperature Pulse Rate 97 94 93 Pulse Rate [Pulse Oximeter] Respiratory Rate 18 Blood Pressure 104/86 88/68 L Blood Pressure [Le ft Upper Arm] Blood Pressure [Ri ght Arm] Pulse Oximetry 99 97 98 Oxygen Delivery Me thod OxyMask Oxygen Flow Rate 2 12/30/22 03:46 12/30/22 03:48 12/30/22 04:00 Temperature Pulse Rate 96 97 97 Pulse Rate [Pulse Oximeter] Respiratory Rate Blood Pressure 88/69 L Blood Pressure [Le ft Upper Arm] Blood Pressure [Ri ght Arm] Pulse Oximetry 94 92 96 Oxygen Delivery Me thod Oxygen Flow Rate 12/30/22 04:01 12/30/22 04:20 12/30/22 04:21 Temperature Pulse Rate 97 97 99 Pulse Rate [Pulse Oximeter] Respiratory Rate Blood Pressure 99/67 87/63 L Blood Pressure [Le ft Upper Arm] Blood Pressure [Ri ght Arm] Pulse Oximetry 97 95 97 Oxygen Delivery Me thod Oxygen Flow Rate 12/30/22 04:28 12/30/22 04:30 12/30/22 04:37 Temperature Pulse Rate 95 99 96 Pulse Rate [Pulse Oximeter] Respiratory Rate Blood Pressure 85/65 L 93/68 95/70 Blood Pressure [Le ft Upper Arm] Blood Pressure [Ri ght Arm] Pulse Oximetry 97 96 97 Oxygen Delivery Me thod Oxygen Flow Rate 12/30/22 04:40 12/30/22 04:41 12/30/22 05:00 Temperature Pulse Rate 95 96 96 Pulse Rate [Pulse Oximeter] Respiratory Rate Blood Pressure 102/71 Blood Pressure [Le ft Upper Arm] Blood Pressure [Ri ght Arm] Pulse Oximetry 97 98 98 Oxygen Delivery Me thod Oxygen Flow Rate 12/30/22 05:20 12/30/22 05:24 12/30/22 05:40 Temperature Pulse Rate 97 100 96 Pulse Rate [Pulse Oximeter] Respiratory Rate Blood Pressure Blood Pressure [Le ft Upper Arm] Blood Pressure [Ri ght Arm] Pulse Oximetry 94 100 98 Oxygen Delivery Me thod Oxygen Flow Rate 12/30/22 05:43 12/30/22 05:58 12/30/22 05:59 Temperature Pulse Rate 98 98 96 Pulse Rate [Pulse Oximeter] Respiratory Rate Blood Pressure 96/70 104/86 Blood Pressure [Le ft Upper Arm] Blood Pressure [Ri ght Arm] Pulse Oximetry 98 97 98 Oxygen Delivery Me thod Oxygen Flow Rate 12/30/22 06:00 12/30/22 06:01 12/30/22 02:00 Temperature Pulse Rate 96 97 Pulse Rate [Pulse Oximeter] Respiratory Rate Blood Pressure 108/73 Blood Pressure [Le ft Upper Arm] Blood Pressure [Ri ght Arm] Pulse Oximetry 99 98 97 Oxygen Delivery Me thod Oxygen Flow Rate 12/30/22 02:00 12/30/22 06:46 12/30/22 07:15 Temperature 98.3 F Pulse Rate Pulse Rate [Pulse Oximeter] 97 Respiratory Rate 24 Blood Pressure Blood Pressure [Le ft Upper Arm] Blood Pressure [Ri ght Arm] 109/72 Pulse Oximetry 97 98 96 Oxygen Delivery Me thod OxyMask OxyMask Oxygen Flow Rate 3 2 12/30/22 07:15 12/30/22 08:40 12/30/22 10:59 Temperature 100.0 F H Pulse Rate 101 H Pulse Rate [Pulse Oximeter] 104 H Respiratory Rate 24 26 H Blood Pressure Blood Pressure [Le ft Upper Arm] Blood Pressure [Ri ght Arm] 109/76 Pulse Oximetry 93 92 Oxygen Delivery Me thod Nasal Cannula Nasal Cannula Oxygen Flow Rate 1 1 Documenting provider has reviewed patient's vital signs: yes Hospitalist - H&P: Result Labs Labs: Short CBC 12/30/22 Range/Units 02:38 WBC 10.40 (4.50-11.00) K/uL Hgb 12.3 L (13.5-17.5) gm/dL Hct 37.2 (37.0-53.0) % Plt Count 140 (140-440) K/uL BMP 12/30/22 02:38 Sodium 135 Potassium 3.7 Chloride 103 Carbon Dioxide 26 BUN 18 Creatinine 1.0 Glucose 107 Calcium 8.4 Liver Function 12/30/22 Range/Units 02:38 Total Bilirubin 0.6 (0.1-1.5) mg/dL Direct Bilirubin 0.4 (0.0-0.5) mg/dL AST 49 H (12-35) U/L ALT 41 (4-50) U/L Alkaline Phosphatase 139 (40-150) U/L Albumin 4.1 (3.3-5.0) g/dL ECG Attestation: I personally reviewed and interpreted this ECG as follows: (Normal sinus rhythm. Chronic anterior precordial ST-T changes which are unchanged since April and July of 2022. No acute ischemic changes. Normal QT) Imaging CT- Other: Attestation: I have reviewed the pertinent imaging results. (Bilateral patchy infiltrates consistent with pneumonia) Assessment and Plan Assessment and plan (1) Sepsis with acute hypoxic respiratory failure: Problem comment: Due to pneumonia Status: Acute (2) Community acquired pneumonia: Status: Acute (3) Cognitive developmental delay: Status: Acute (4) Altered mental status: Problem comment: Likely due to acute illness without acute or focal neurologic findings Status: Acute (5) Seizure: Problem comment: Seizure yesterday likely related to acute illness with underlying seizure disorder Status: Acute (6) Elevated troponin: Problem comment: Likely type 2 non STEMI or stress-induced ischemia Status: Acute Plan Patient is admitted to the hospital for treatment of hypoxic respiratory failure and sepsis related to pneumonia. During the day today he received additional IV fluids. He was able to wake up enough to eat a meal. He has been a little bit more alert especially when his staff from the long-term are around. He is still at this point nonverbal. Continues to have increased work and rate of breathing this afternoon. Will continue treatment with piperacillin tazobactam and azithromycin. Received vancomycin in the ED. probably not needed. Check nasal MRSA culture and treat accordingly. Total time spent today is 75 minutes, 55 minutes in coordination of care and discussing with other providers ongoing evaluation management of sepsis, hypoxia, pneumonia
--- NOTE | 2022-12-30 15:42 | PC.NURSE ---
Pt admitted to [facility] unit on 12/30/22 overnight after O2 saturations were 70's-80's reported by staff at [facility][Note 3] following pneumonia dx. Pt tolerating bite sized diet well with 100% of meals eaten and 100% assistance with feeding. Pt ambulatory with 2 assist to and from commode. Occasionally incontinent with urine. Pt has hx of cognitive delay with minimal speech. Pt appears alert to self and at times answers questions appropriately. Pt appears comfortable in bed. Occasional cough, no sputum noted at this time.
[2022-12-30] MEDS: PROPRANOLOL 20 MG TABLET PO (16:11)
[2022-12-30] MEDS: risperiDONE 1 MG TABLET 3.5 MG PO (17:30)
--- NOTE | 2022-12-30 18:55 | PC.NURSE ---
Pt drowsy and primarily nonverbal. On 1 L of o2 with sats in the mid 90s. A2 to the commode. Pt calls out when needing the bathroom. Able to take pills whole. Tolerating meals. Requires assistance feeding.
[2022-12-30] MEDS: ENOXAPARIN 40 MG/0.4 ML INJ SUBCUT (21:19)
[2022-12-30] MEDS: TRAZODONE HCL 50 MG TABLET PO (21:20)
[2022-12-30] MEDS: gemfibroziL 600 MG TABLET PO (21:20)
[2022-12-30] MEDS: diazePAM 5 MG TABLET PO (21:20)
[2022-12-30] MEDS: QUETIAPINE 100 MG TABLET PO (21:20)
[2022-12-30] MEDS: SENNOSIDES 1 TAB TABLET PO (21:20)
[2022-12-30] MEDS: SODIUM CHLORIDE 0.9 % (FLUSH) 10 ML SYRINGE 5 ML IVF (21:20)
[2022-12-31] VITALS (11 sets, daily range): BP systolic 104–112; BP diastolic 68–77; PULSE 73–93; RESP 16–20; TEMP 36.3–36.9; O2SAT 90–94
--- NOTE | 2022-12-31 01:33 | PC.NURSE ---
Pt is developmentally delayed. Non verbal. VSS he is very sleepy. Did set off bed alarm by getting out of bed and indicating he had to go to the bathroom. Did not make it and proceeded to void on the floor both urine and stool. He is a heavy assist of 2.
[2022-12-31] MEDS: PIPERACILLIN/TAZOBACTAM 3.375 GM in 0.9 % SODIUM CHLORIDE Mini-bag 100 ML IVPB ×4 (03:05→21:04)
--- NOTE | 2022-12-31 06:49 | PC.NURSE ---
: A x 2 with gb to?BSC. pt asleep majority of shift. Pt on 1-2L O2 via NC to maintain sats >88%. Occasional moist cough. Rhonchi auscultated over lung bases. Held Propranolol x 2?for SBP <120. ? AM WT: 83.37kg bed scale (-0.77kg from admission wt)?
[2022-12-31 06:59] LABS: Basophils Absolute Auto 0.01 K/uL (0.00-0.30); Basophils Percent Auto 0.2 % (0.0-3.0); Eosinophils Absolute Auto 0.03 K/uL (0.00-0.50); Eosinophils Percent Auto 0.6 % (0.0-7.0); Hematocrit 33.2 % (37.0-53.0); Hemoglobin* 11.1 gm/dL (13.5-17.5); Immature Granulocytes Abs Auto 0.03 K/uL (0.00-0.30); Immature Granulocytes Pct Auto 0.6 %; Lymphocytes Absolute Auto 1.58 K/uL (0.90-2.90); Lymphocytes Percent Auto 29.8 % (20-44); Mean Corpuscular HGB Conc 33 gm/dL (32-36); Mean Corpuscular Hemoglobin 29 pg (26-34); Mean Corpuscular Volume 86 fL (80-100); Monocytes Percent Auto 10.5 % (0.0-11.0); Neutrophils Percent Auto 58.3 % (42.0-72.0); Platelet Count* 136 K/uL (140-440); Red Blood Count 3.87 m/uL (4.30-5.90); White Blood Count* 5.31 K/uL (4.50-11.00)
[2022-12-31 07:01] LABS: Slide Review Reflex No
[2022-12-31 07:12] LABS: Chloride* 107 mmol/L (96-114); Potassium* 3.7 mmol/L (3.6-5.1); Sodium* 139 mmol/L (135-149)
[2022-12-31 07:15] LABS: Blood Urea Nitrogen* 7 mg/dL (5-24); Carbon Dioxide* 28 mmol/L (20-32); Creatinine* 0.7 mg/dL (0.5-1.5); Estimated Glomerular Filt Rate 117 ml/min
[2022-12-31 07:16] LABS: Calcium* 7.8 mg/dL (8.4-10.6); Glucose* 124 mg/dL (60-115)
[2022-12-31 07:29] LABS: Troponin I* 0.59 ng/mL (0.01-0.04)
[2022-12-31] MEDS: AZITHROMYCIN 250 MG TABLET 500 MG PO (08:46)
[2022-12-31] MEDS: gemfibroziL 600 MG TABLET PO ×2 (08:47→21:01)
[2022-12-31] MEDS: risperiDONE 1 MG TABLET 3 MG PO (08:48)
[2022-12-31] MEDS: lamoTRIgine 100 MG TABLET 200 MG PO ×2 (08:50→21:04)
[2022-12-31] MEDS: TRAZODONE HCL 50 MG TABLET PO ×3 (08:54→21:02)
[2022-12-31] MEDS: ASPIRIN 81 MG TAB.CHEW PO (08:56)
[2022-12-31] MEDS: ATORVASTATIN 10 MG TABLET 20 MG PO (08:58)
[2022-12-31] MEDS: PROPRANOLOL 20 MG TABLET PO ×3 (09:00→23:22)
[2022-12-31] MEDS: SENNOSIDES 1 TAB TABLET PO (09:00)
[2022-12-31] MEDS: MULTIVITAMIN/MINERALS 1 TABLET 1 TAB PO (09:01)
[2022-12-31] MEDS: QUETIAPINE 100 MG TABLET PO ×3 (09:01→21:02)
[2022-12-31] MEDS: ESCITALOPRAM 10 MG TABLET PO (09:01)
[2022-12-31] MEDS: diazePAM 5 MG TABLET PO ×2 (09:02→21:02)
[2022-12-31] MEDS: SODIUM CHLORIDE 0.9 % (FLUSH) 10 ML SYRINGE 5 ML IVF ×2 (11:04→21:02)
--- NOTE | 2022-12-31 13:14 | PM.IMPN1 ---
Progress Note: A&P Assessment and plan (1) Sepsis with acute hypoxic respiratory failure: Problem details: Due to pneumonia. Appears better. Add vancomycin which can probably be discontinued if blood cultures are negative. Status: Acute (2) Community acquired pneumonia: Problem details: Zosyn, azithromycin, vancomycin in the context of sepsis. If blood cultures are negative and patient is clinically improving consider transitioning to oral Augmentin Status: Acute (3) NSTEMI (non-ST elevated myocardial infarction): Problem details: Troponin elevation continues. EKG changes. Continue to monitor troponin, cardiac monitoring. Await final echo report. Suspect type 2 HI/stress ischemia. Add aspirin to statin. Status: Acute (4) Cognitive developmental delay: Problem details: Nonverbal. Status: Acute (5) Altered mental status: Problem details: Likely due to acute illness without acute or focal neurologic findings. Improved today Status: Acute (6) Seizure: Problem details: Seizure yesterday likely related to acute illness with underlying seizure disorder. His Lamictal level is above the normal range. This was not a trough level. Because of his altered mental status I have reduced his Lamictal dose from 200 in the morning and 350 at bedtime to 200 twice a day. Revisit this as he improves to get proper dosing for discharge Status: Acute (7) Weakness: Problem details: Patient requiring assist of 2 to stand and transfer at this time. I believe he is normally independently ambulatory. This is acute weakness is likely due to his acute illness. PT and OT to evaluate and treat Status: Acute Plan Continue in hospital for IV antibiotics, monitoring of sepsis, non STEMI, hypoxic respiratory failure. Time Spent With Patient Total time spent: Total time spent today is 45 minutes, 35 minutes in coordination of care and discussing with other providers management of sepsis, pneumonia, altered mental status, non-STEMI Subjective Date Seen: 12/31/22 Interval history: 42-year-old male seen in followup of hospital admission for sepsis, altered mental status, hypoxia, pneumonia, non STEMI. In the last day he has become more arousable. He has been able to eat and to drink. He he is still quite weak but able to stand and transfer to the commode. He remains nonverbal. Mostly sleeping and difficult to arouse between meals. He is being treated with piperacillin tazobactam and azithromycin. His MRSA nasal swab came back positive so vancomycin has been restarted. His a troponin has continued to trend upward. He is unable to communicate whether he is having any cardia respiratory symptoms. Nurses have not noted any apparent distress. It is electrocardiogram this morning is unchanged from yesterday except in the inferior leads he has T-wave inversions compared to yesterday. His echocardiogram on preliminary report raises the possibility of apical hypokinesis but is otherwise unremarkable. Exam Narrative: Exam Narrative: He is sleeping and minimally arouses when I initially see him today. He is unable to wake up and eat some food. Breathing appears unlabored with supplemental oxygen. He is nonverbal and at this point not communicating with me with nonverbal means either. He does not appear to be in any distress. Nurses note that he has been able to communicate a desire for food and a desire to go to the bathroom. Head is normal. No obvious facial asymmetry. Oropharynx with small airway. Neck is supple out mass or adenopathy. Respirations with few basilar crackles. Otherwise clear to auscultation. Breathing is less labored than yesterday. Cardiovascular: S1, S2, regular rate and rhythm. No murmur gallop or rub. Abdomen: Bowel sounds active. Abdomen is soft without tenderness or mass. External genitalia normal. Extremities with no significant edema. Extremities are well perfused. Const: Vital Signs, click to edit/add: Vital Signs - 24 hr 12/30/22 16:02 12/30/22 15:00 12/30/22 15:00 Temperature 98.8 F Pulse Rate Pulse Rate [Pulse Oximeter] 101 H 101 H Respiratory Rate 22 Blood Pressure [Ri ght Arm] 120/77 Pulse Oximetry 93 93 Oxygen Delivery Me thod Nasal Cannula Oxygen Flow Rate 1 12/30/22 16:10 12/30/22 19:00 12/30/22 23:00 Temperature 97.9 F Pulse Rate 100 82 Pulse Rate [Pulse Oximeter] 96 Respiratory Rate 20 Blood Pressure [Ri ght Arm] 105/67 Pulse Oximetry 93 Oxygen Delivery Me thod Nasal Cannula Oxygen Flow Rate 1 12/30/22 23:00 12/30/22 23:00 12/30/22 23:00 Temperature 97.9 F Pulse Rate Pulse Rate [Pulse Oximeter] 82 82 Respiratory Rate 20 20 Blood Pressure [Ri ght Arm] 105/59 L Pulse Oximetry 93 93 Oxygen Delivery Me thod Nasal Cannula Oxygen Flow Rate 1 12/31/22 03:00 12/31/22 07:23 12/31/22 07:24 Temperature 97.9 F Pulse Rate 73 Pulse Rate [Pulse Oximeter] 87 Respiratory Rate 20 Blood Pressure [[facility] Arm] 105/71 Pulse Oximetry 92 94 Oxygen Delivery Me thod Nasal Cannula Oxygen Flow Rate 1 12/31/22 07:00 12/31/22 07:00 12/31/22 10:57 Temperature 98.4 F 97.4 F L Pulse Rate Pulse Rate [Pulse Oximeter] 85 93 Respiratory Rate 16 16 19 Blood Pressure [[facility] Arm] 112/77 106/75 Pulse Oximetry 92 90 Oxygen Delivery Me thod Nasal Cannula Nasal Cannula Oxygen Flow Rate 2 1 Documenting provider has reviewed patient's vital signs: yes Labs Labs: Laboratory Results - last 24 hr 12/31/22 06:38 WBC 5.31 RBC 3.87 L Hgb 11.1 L Hct 33.2 L MCV 86 MCH 29 MCHC 33 RDW Coeff of Dileep 14.0 Plt Count 136 L Neut % (Auto) 58.3 Lymph % (Auto) 29.8 [place] % (Auto) 10.5 Eos % (Auto) 0.6 Baso % (Auto) 0.2 Neut # (Auto) 3.10 Lymph # (Auto) 1.58 [place] # (Auto) 0.60 Eos # (Auto) 0.03 Baso # (Auto) 0.01 Sodium 139 Potassium 3.7 Chloride 107 Carbon Dioxide 28 BUN 7 Creatinine 0.7 Estimated GFR 117 Glucose 124 H Calcium 7.8 L Troponin I 0.59 H* ECG Attestation: I personally reviewed and interpreted this ECG as follows: (Electrocardiogram compared to yesterday shows new T-wave inversions in leads 3 and AVF and generalized T-wave flattening. No acute ST segment changes)
--- NOTE | 2022-12-31 14:51 | PC.NURSE ---
Shift summary: Pt pleasant and cooperative to best ability d/t developmental delay. Unable to verbalize needs, staff anticipate needs. Keli cares and incontinent products managed by staff. Pt restless throughout shift. Small amount of urine noted in brief, bladder scan showing 911cc. Straight cathed with 1600cc output. Loose BM *2. Still requiring two assist with gait belt and bedside commode. Pt maintaining O2 sats >90% on RA. Increased agitation, not tolerating continuous pulse ox, spot checked when staff in room. Appetite good, requiring total assist with meals. Right AC saline lock infiltrated, new IV placed in left forearm tolerating infusions well. Turn and repositioned Q2h or as needed.
[2022-12-31] MEDS: PERFLUTREN LIPID MICROSPHERES 2 ML VIAL IV (15:01)
[2022-12-31] MEDS: risperiDONE 1 MG TABLET 3.5 MG PO (17:26)
--- NOTE | 2022-12-31 17:51 | PC.NURSE ---
Shift Summary 15-19: Patient has been restless on and off. director of oncology from [facility] here earlier and did activities with patient to help calm him. Did set off bed exit alarm this afternoon and was found trying to stand at beside. Will try to take of gown, tele and pulse ox. Vitals stable and WNL. Total assist with feeding. had x1 small loose BM this afternoon, pericares and incont products managed by staff. Continues to need 2 assist with gait belt to BSC. Tele appears to be NSR. Patient has a bag with coupons which he likes to look at. Patient also able to reposition head of bed with buttons on side. O2 sats >90% on RA.
[2022-12-31] MEDS: ENOXAPARIN 40 MG/0.4 ML INJ SUBCUT (21:01)
[2023-01-01] VITALS (9 sets, daily range): BP systolic 100–121; BP diastolic 59–86; PULSE 66–82; RESP 18; TEMP 36.2–36.4; O2SAT 93–96
[2023-01-01] MEDS: PIPERACILLIN/TAZOBACTAM 3.375 GM in 0.9 % SODIUM CHLORIDE Mini-bag 100 ML IVPB ×2 (02:36→08:34)
--- NOTE | 2023-01-01 07:00 | PC.NURSE ---
END OF SHIFT NOTE: PT?IS WITH SEVERE INTELLECTUAL DISABILITIES; PRIMARILY NONVERBAL. STAFF TO ANTICIPATE ALL PT NEEDS/CARES. PT?AMBULATES TO BSC WITH HEAVY A2. VSS ON RA; AFEBRILE. BED ALARM ON AND CALL LIGHT WITHIN PT?S REACH. PT DOES NOT USE CALL LIGHT APPROPRIATELY. INCONTINENT OF BOWEL X1 AND BLADDER x2. PT NOT LEAVING CONTINUOUS PULSE OX ON. PT PULLED OFF TELEMETRY x2; TELE REPLACED. PT SPOT CHECKED WITH SPO2 IN 90?s AND TELE READING NSR. FRANDY HELD D/T MULTIPLE LOOSE BM?S PER REPORT. LS WITH EXPIRATORY WHEEZES THROUGHOUT; DIMINISHED IN THE BASES. OCCASIONALLY NON PRODUCTIVE COUGH. CONTENT WHEN WATCHING [employer] CHANNELS, SETTING PUZZLES, CRAFTING WITH COUPONS.
--- NOTE | 2023-01-01 07:31 | PM.IMPN1 ---
Progress Note: A&P Assessment and plan (1) NSTEMI (non-ST elevated myocardial infarction): Problem details: Troponin has peaked. Echo reassuring. Suspect type 2 [place]/stress ischemia. Add aspirin to statin. Echo shows normal LV size, normal wall thickness, normal global systolic function with an EF of 55-60%. Right ventricle function normal. Status: Acute (2) Weakness: Problem details: improving physically and mentally. Status: Acute (3) Pulmonary infiltrate: Problem details: on imaging infitrates look worse. However, CRP, procal, WBC count all downtrending. BC x 48 neg. will stop vanc. azithro course done. DC Zosyn. Transition oral Augmentin. Status: Acute (4) Sepsis with acute hypoxic respiratory failure: Problem details: Due to pneumonia. Appears improved. Status: Acute (5) Cognitive developmental delay: Problem details: Nonverbal. Improved. Status: Acute (6) Community acquired pneumonia: Problem details: Status post Zosyn, azithromycin, vancomycin. Will switch to oral Augmentin. On room air. Status: Acute (7) Seizure disorder: Status: Acute Subjective Date Seen: 01/01/23 Interval history: Daily Progress Note - Hospital Medicine Day #: 3 CC: Sepsis/bacteremia, non-STEMI Day 3 of azithromycin, 500 mg IV and Zosyn Vancomycin started 12/31, day 2 Psych med review Lamictal changed to 200 mg b.i.d. from 200 q.a.m. 350 q.h.s. Risperidone 3 mg q.a.m., 3.5 mg q.p.m. - HOME MED Trazodone 50 mg t.i.d. - HOME MED Seroquel 100 mg t.i.d. - HOME MED Lexapro 10 mg daily - HOME MED Diazepam 5 mg b.i.d. - HOME MED OVERNIGHT UPDATES FROM STAFF & MED, LAB, IMAGING UPDATES Afebrile overnight Blood pressures ranging 106-118 systolic, 70s to 80s diastolic Pulse rate 70s Respiratory rate 18, unlabored Pulse ox 93-94% Weight 83 kilos Upon my arrival there were no morning labs. These were ordered. In review from yesterday: Troponin yesterday was 0.6 at 6:30 a.m. 12/31 ProBNP 11 60 CBC today is stable. Mild leukopenia at 3.8. Hemoglobin stable. His peak leukocytosis was actually 11.6 on the day of admission. PH is stable for 7.4 Lactate is climbing again, 2.1 Troponin downtrending 0.59 down to 0.48 today Procalcitonin normal CRP has down trended from 19.8 down to 8.3 updated CXR today: Moderate patchy multifocal airspace disease worsened since the prior study. Normal pleural spaces. Heart size normal. CT Chest from admission demonstrated new mild splenomegaly and bilateral airspace opacities consistent with pneumonia MRSA noted previously from his nasal swab Two blood cultures negative to date No urinary culture Objective: Vitals: see above Lungs: Clear. Cardiac: S1S2. Disposition/Potential discharge - Likely to return to previous living situation. Total time is 35 minutes with greater than 50% spent in counseling and coordination of care. Exam Const: Vital Signs, click to edit/add: Vital Signs - 24 hr 12/31/22 10:57 12/31/22 11:00 12/31/22 15:06 Temperature 97.4 F L Pulse Rate 87 Pulse Rate [Pulse Oximeter] 93 86 Respiratory Rate 19 18 Blood Pressure [Ri ght Arm] 106/75 106/75 Pulse Oximetry 90 91 Oxygen Delivery Me thod Nasal Cannula Room Air Oxygen Flow Rate 1 12/31/22 15:06 12/31/22 15:37 12/31/22 21:00 Temperature 97.5 F L 97.9 F Pulse Rate Pulse Rate [Pulse Oximeter] 81 79 Respiratory Rate 18 18 Blood Pressure [Ri ght Arm] 106/71 104/68 Pulse Oximetry 94 94 91 Oxygen Delivery Me thod Room Air Room Air Oxygen Flow Rate 12/31/22 22:29 12/31/22 23:00 12/31/22 23:00 Temperature Pulse Rate 83 Pulse Rate [Pulse Oximeter] 74 Respiratory Rate 18 Blood Pressure [Ri ght Arm] Pulse Oximetry 93 Oxygen Delivery Me thod Oxygen Flow Rate 12/31/22 23:00 01/01/23 03:00 01/01/23 07:05 Temperature 97.7 F 97.1 F L Pulse Rate 66 Pulse Rate [Pulse Oximeter] 74 70 Respiratory Rate 18 18 Blood Pressure [Ri ght Arm] 112/76 118/82 Pulse Oximetry 93 94 Oxygen Delivery Me thod Room Air Room Air Oxygen Flow Rate
--- NOTE | 2023-01-01 07:35 | CRLHL7_ITS ---
For Patients: As a result of the Century Cures Act, medical imaging exams and procedure reports are released immediately into your electronic medical record. You may view this report before your referring provider. If you have questions, please contact your health care provider. INDICATION: Follow-up pneumonia COMPARISON: A chest radiograph dated December 29, 2022 TECHNIQUE: PA and lateral views of the chest were acquired FINDINGS: TUBES AND LINES: None. HEART AND MEDIASTINUM: The heart size is normal. The mediastinal contour appears normal for patient age. LUNGS AND PLEURAL SPACES: Moderate patchy multifocal airspace disease. This has worsened.The pleural spaces are unremarkable. OSSEOUS STRUCTURES: Age-appropriate appearance. No acute focal finding. IMPRESSION: Moderate patchy multifocal airspace disease worsened since the prior study. Normal pleural spaces. Heart size normal. Dictated by Rock Marin MD @ 01/01/2023 8:38:40 AM (Electronically Signed)
[2023-01-01] MEDS: SODIUM CHLORIDE 0.9 % (FLUSH) 10 ML SYRINGE 5 ML IVF (08:34)
[2023-01-01] MEDS: ATORVASTATIN 10 MG TABLET 20 MG PO (08:34)
[2023-01-01] MEDS: ASPIRIN 81 MG TAB.CHEW PO (08:35)
[2023-01-01] MEDS: diazePAM 5 MG TABLET PO ×2 (08:35→20:33)
[2023-01-01] MEDS: ACETAMINOPHEN 325 MG TABLET 650 MG PO (08:35)
[2023-01-01] MEDS: TRAZODONE HCL 50 MG TABLET PO ×3 (08:35→20:33)
[2023-01-01] MEDS: AZITHROMYCIN 250 MG TABLET 500 MG PO (08:35)
[2023-01-01] MEDS: MULTIVITAMIN/MINERALS 1 TABLET 1 TAB PO (08:35)
[2023-01-01] MEDS: QUETIAPINE 100 MG TABLET PO ×3 (08:36→20:33)
[2023-01-01] MEDS: ESCITALOPRAM 10 MG TABLET PO (08:36)
[2023-01-01] MEDS: PROPRANOLOL 20 MG TABLET PO ×2 (08:36→17:49)
[2023-01-01] MEDS: gemfibroziL 600 MG TABLET PO ×2 (08:36→20:33)
[2023-01-01] MEDS: risperiDONE 1 MG TABLET 3 MG PO (08:37)
[2023-01-01] MEDS: lamoTRIgine 100 MG TABLET 200 MG PO ×2 (08:37→20:33)
[2023-01-01 09:15] LABS: HCO3 VBG 27 mmol/L (21-28); Ionized Calcium* 1.15 mmol/L (1.11-1.30); Lactate* 2.1 mmol/L (0.5-1.9); PCO2 VBG 43 mmHG (40-50); PO2 VBG 62.3 mmHG (25-47); pH VBG 7.411 (7.32-7.43)
[2023-01-01 09:19] LABS: Eosinophils Percent Auto 0.3 % (0.0-7.0); Hematocrit 38.8 % (37.0-53.0); Hemoglobin* 12.8 gm/dL (13.5-17.5); Immature Granulocytes Pct Auto 1.6 %; Lymphocytes Percent Auto 35.4 % (20-44); Mean Corpuscular HGB Conc 33 gm/dL (32-36); Mean Corpuscular Hemoglobin 29 pg (26-34); Mean Corpuscular Volume 87 fL (80-100); Monocytes Percent Auto 8.4 % (0.0-11.0); Neutrophils Percent Auto 54.3 % (42.0-72.0); Platelet Count* 88 K/uL (140-440); RDW Coefficient of Variation % 14.1 % (11.5-15.5); Red Blood Count 4.47 m/uL (4.30-5.90); White Blood Count* 3.79 K/uL (4.50-11.00)
[2023-01-01 09:45] LABS: Slide Review Reflex Yes
[2023-01-01 09:46] LABS: Slide Review Acceptable Review (Acceptable)
[2023-01-01 09:59] LABS: Procalcitonin* 0.25 ng/mL (<0.50)
[2023-01-01 10:00] LABS: C Reactive Protein* 8.3 mg/dL (0.5-1.0)
[2023-01-01 10:02] LABS: Troponin I* 0.48 ng/mL (0.01-0.04)
[2023-01-01 10:03] LABS: Lipase* 100 U/L (23-300); Magnesium* 1.9 mg/dL (1.5-2.6); Uric Acid* 1.8 mg/dL (2.2-8.4)
[2023-01-01 10:30] LABS: Chloride* 105 mmol/L (96-114); Potassium* 3.7 mmol/L (3.6-5.1); Sodium* 143 mmol/L (135-149)
[2023-01-01 10:39] LABS: Blood Urea Nitrogen* 7 mg/dL (5-24); Creatinine* 0.7 mg/dL (0.5-1.5); Estimated Glomerular Filt Rate 117 ml/min
[2023-01-01 10:43] LABS: Glucose* 130 mg/dL (60-115)
[2023-01-01 10:49] LABS: Alanine Aminotransferase* 82 U/L (4-50); Albumin* 3.9 g/dL (3.3-5.0); Alkaline Phosphatase* 158 U/L (40-150); Total Protein* 6.7 g/dL (6.0-8.3)
[2023-01-01 10:50] LABS: Carbon Dioxide* 24 mmol/L (20-32)
[2023-01-01] MEDS: LACTOBACILLUS ACIDOPHILUS 1 TABLET 2 TAB PO ×2 (14:06→17:47)
[2023-01-01] MEDS: risperiDONE 1 MG TABLET 3.5 MG PO (17:46)
[2023-01-01] MEDS: AMOXICILLIN/CLAVULANATE 500 mg/125 mg TABLET PO (17:47)
--- NOTE | 2023-01-01 18:23 | PC.NURSE ---
end of shift. pt has been pleasant. he can say some words and yells out things at times. he was very restless this am. pt tired to void on BSC with no luck bladder scan 542 and 700 out. pt was was claim and relaxed after. brief was dry. : he pulled tele off and also pulled his IV out with 90% of antibiotic given. md was updated and tele and SL where d/c. he set off bed exit alarm and is standing at the beside. he was dressed this am after am cares. Vitals stable and WNL. he is able to feed him self after set up and food cut up. bladder scan was done 1430 for 330 and 1830. 611. he did have a small wet pad and he did void on the toilet but there was not a hat. 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 Tele NSR this am. Pt has a bag with coupons 2 books. which he likes to look at. pt has been up in the chair. O2 sats >90% on RA. [facility] staff was here and pt is back to his baseline per staff. his sister and mom where also here. he takes pills whole with no problems. he is a fall risk and alarms are on. he is on PNX and MRSA precautions. if no fever or other medical problems plan to d/c at 1200 tomorrow.
[2023-01-01] MEDS: ENOXAPARIN 40 MG/0.4 ML INJ SUBCUT (20:34)
[2023-01-02 03:00] VITALS: RESP 18
--- NOTE | 2023-01-02 05:06 | PC.NURSE ---
END OF SHIFT NOTE: PT PLEASANT AND COOPERATIVE. AMBULATES WITH GB AND A1. VSS ON RA; AFEBRILE. BED/CHAIR ALARM ON AND CALL LIGHT WITHIN PT?S REACH. PT DOES NOT USE CALL LIGHT APPROPRIATELY AND IS IMPULSIVE. WITH SEVERE INTELLECTUAL DISABILITY; PT MORE VERBAL THIS SHIFT; USING SHORT PHRASES. PT FOLLOWS MOST DIRECTIONS GIVEN. PT TO DC BACK HOME TODAY TO [facility]. NIGHT UNEVENTFUL. PT SLEPT WELL THROUGH THE NIGHT.
[2023-01-02 07:00] VITALS: O2SAT 94
[2023-01-02 07:29] LABS: HCO3 VBG 28 mmol/L (21-28); Lactate* 1.1 mmol/L (0.5-1.9); PCO2 VBG 44 mmHG (40-50); PO2 VBG 62.3 mmHG (25-47); pH VBG 7.415 (7.32-7.43)
[2023-01-02 08:10] LABS: Troponin I* 0.15 ng/mL (0.01-0.04)
[2023-01-02 08:31] VITALS: BP 144/93; PULSE 74; RESP 16; TEMP 36.3; O2SAT 97
[2023-01-02] MEDS: PROPRANOLOL 20 MG TABLET PO (08:51)
[2023-01-02] MEDS: AMOXICILLIN/CLAVULANATE 500 mg/125 mg TABLET PO (08:52)
[2023-01-02] MEDS: ATORVASTATIN 10 MG TABLET 20 MG PO (08:53)
[2023-01-02] MEDS: QUETIAPINE 100 MG TABLET PO (08:53)
[2023-01-02] MEDS: ASPIRIN 81 MG TAB.CHEW PO (08:53)
[2023-01-02] MEDS: MULTIVITAMIN/MINERALS 1 TABLET 1 TAB PO (08:54)
[2023-01-02] MEDS: SENNOSIDES 1 TAB TABLET PO (08:54)
[2023-01-02] MEDS: ESCITALOPRAM 10 MG TABLET PO (08:55)
[2023-01-02] MEDS: diazePAM 5 MG TABLET PO (08:55)
[2023-01-02] MEDS: TRAZODONE HCL 50 MG TABLET PO (08:55)
[2023-01-02] MEDS: gemfibroziL 600 MG TABLET PO (08:56)
[2023-01-02] MEDS: lamoTRIgine 100 MG TABLET 200 MG PO (08:56)
[2023-01-02] MEDS: risperiDONE 1 MG TABLET 3 MG PO (08:57)
[2023-01-02] MEDS: LACTOBACILLUS ACIDOPHILUS 1 TABLET 2 TAB PO (08:59)
--- NOTE | 2023-01-02 09:23 | PM.DS1 ---
DS: Providers Provider Date Seen: 01/02/23 Date of admission: 12/30/22 08:10 Primary care physician: Rosalio Conner MD Admitting Clinician: Elina Piedra MD Consults: 12/30/22 09:31 Consult to Physical Therapy [CONS] Routine Comment: Reason(s) for PT Consult:: Weakness Any Restrictions?:: No Restrictions Attending Physician on discharge: Leandra Segura MD [facility] Hospitalist Date of Discharge: 01/02/23 DS: Diagnosis Discharge Diagnosis (1) NSTEMI (non-ST elevated myocardial infarction): Status: Acute Problem details: Troponin has peaked. Echo reassuring. Suspect type 2 [place]/stress ischemia. Add aspirin to statin. Echo shows normal LV size, normal wall thickness, normal global systolic function with an EF of 55-60%. Right ventricle function normal. (2) Weakness: Status: Acute Problem details: improving physically and mentally. (3) Pulmonary infiltrate: Status: Acute Problem details: on imaging infitrates had not improved. However, CRP, procal, WBC count all downtrending. BC x since triage in ED. will stop vanc. azithro course done. DC Zosyn. Transition oral Augmentin for 7 days. +MRSA on nasal culture. (4) Sepsis with acute hypoxic respiratory failure: Status: Acute Problem details: Due to pneumonia. Appears improved. (5) Cognitive developmental delay: Status: Acute Problem details: Nonverbal. Improved. (6) Community acquired pneumonia: Status: Acute Problem details: Status post Zosyn, azithromycin, vancomycin. Will switch to oral Augmentin. On room air. (7) Seizure disorder: Status: Acute (8) Recurrent cold sores: Status: Acute Problem details: topical Abrev and topical Vaseline for symptom control (9) MRSA (methicillin resistant Staphylococcus aureus) colonization: Status: Acute Problem details: +nasal cultures on recent hospitalization. Good handwashing and hygiene protocols DS: Summary Hospital Course Hospital Course: HOSPITALIST DISCHARGE SUMMARY ATTENDING PHYSICIAN: Leandra Segura MD FINAL DIAGNOSIS: Community-acquired pneumonia versus aspiration pneumonia Sepsis [place] cardiac ischemia HOSPITAL FOLLOWUP ISSUES: PCP in 2 weeks REFERRALS WHILE ADMITTED: PT, OT REFERRALS AFTER DISCHARGE: None BRIEF HOSPITAL COURSE: Saulo is a 42-year-old white male with chronic physical and intellectual disabilities who presented with acute change in cognition, likely sepsis from an acute aspiration or community-acquired pneumonia. Who is treated with IV antibiotics and 2 L per nasal cannula oxygen. His troponin was mildly elevated. His echocardiogram was normal. His troponin down trended. We added an aspirin to his statin therapy. SUBSTANTIVE NOTATIONS ON IMAGING, LAB, MICROBIOLOGY/PATHOLOGY STUDIES: 144/93. Pulse 74. Rest per 16. Temp 97.4?. Room air saturations are 97%. Troponin peaked at 0.59, on discharge was 0.15. His echo showed an EF of 55-60%. Normal LV size. RV function normal. His kidney function was or is normal. CRP down trended from 19.8 down to 8.[address] showed patchy bilateral airspace opacities consistent with pneumonia. He was negative for SARS-CoV-2, influenza, RSV. Blood cultures remained negative despite a positive nasal culture. DISCHARGE MEDICATIONS: See Reconciled list - SIGNIFICANT CHANGES: Adding aspirin to his statin 81 mg chewable 7 days of Augmentin Topical Abreva and Vaseline for cold sores REVIEW OF SYSTEMS No new chest pain or dyspnea Pain controlled No voiding difficulties Tolerating diet challenge PHYSICAL EXAM: CONSTITUTIONAL: Happy this morning. Back to baseline mentally and physically. VITAL SIGNS: see record. HEENT: Normocephalic, atraumatic. PERRL, EOMI, conjunctivae pink, no scleral icterus. Ears and nose externally normal. Pharynx normal. NECK: No JVD. No carotid bruit, no thyromegaly, no adenopathy. CHEST: Clear to auscultation bilaterally. HEART: S1 and S2 normal. Edema ABDOMEN: Soft, nontender. Normal bowel sounds. MUSCULOSKELETAL: No gross joint deformity or swelling. NEURO: Cranial nerves intact. Grossly intact. No asymmetric findings. SKIN: No rashes, petechiae, concerning changes PSYCHIATRIC: Mood euthymic. DISPOSITION: Back to jail Time spent on discharge 37 minutes. Status at Discharge Functional status at discharge: wheelchair bound Overall status at discharge: patient is progressing back to baseline Time Spent with Patient Time attestation: Total time spent providing and/or coordinating discharge services: Time spent: Greater than 30 minutes Exam Const: Vital Signs, click to edit/add: Vital Signs - 24 hr 01/01/23 12:01 01/01/23 16:00 01/01/23 16:00 Temperature 97.4 F L 97.6 F Pulse Rate [Pulse Oximeter] 82 73 Respiratory Rate 18 18 Blood Pressure [Ri ght Arm] 100/59 L 111/86 Pulse Oximetry 95 96 94 Oxygen Delivery Me thod Room Air Room Air 01/01/23 16:00 01/01/23 19:00 01/01/23 22:39 Temperature 97.3 F L Pulse Rate [Pulse Oximeter] 73 71 Respiratory Rate 18 18 Blood Pressure [Ri ght Arm] 116/82 Pulse Oximetry 93 93 Oxygen Delivery Me thod Room Air 01/01/23 22:39 01/01/23 23:55 01/02/23 03:00 Temperature 97.2 F L Pulse Rate [Pulse Oximeter] 71 66 Respiratory Rate 18 18 18 Blood Pressure [Ri ght Arm] 110/70 Pulse Oximetry 96 Oxygen Delivery Sc thod Room Air Room Air 01/02/23 08:31 Temperature 97.4 F L Pulse Rate [Pulse Oximeter] 74 Respiratory Rate 16 Blood Pressure [Ri ght Arm] 144/93 H Pulse Oximetry 97 Oxygen Delivery Sc thod Room Air DS: Data Data Completed and Pending Labs on day of discharge: Labs from last 24 hours 01/02/23 01/01/23 07:24 09:04 WBC 3.79 L RBC 4.47 Hgb 12.8 L Hct 38.8 MCV 87 MCH 29 MCHC 33 RDW Coeff of Dileep 14.1 Plt Count 88 L Neut % (Auto) 54.3 Lymph % (Auto) 35.4 [place] % (Auto) 8.4 Eos % (Auto) 0.3 Baso % (Auto) 0.0 Neut # (Auto) 2.10 Lymph # (Auto) 1.30 [place] # (Auto) 0.30 Eos # (Auto) 0.00 Baso # (Auto) 0.00 Diff Slide Review Acceptable Review VBG pH 7.415 VBG pCO2 44 VBG pO2 62.3 H VBG HCO3 28 Sodium 143 Potassium 3.7 Chloride 105 Carbon Dioxide 24 BUN 7 Creatinine 0.7 Estimated GFR 117 Glucose 130 H Lactate 1.1 Uric Acid 1.8 L Calcium 9.0 Phosphorus 3.0 Magnesium 1.9 Total Bilirubin AST Not Reportable ALT 82 H Alkaline Phosphatase 158 H Troponin I 0.15 H* 0.48 H* C-Reactive Protein 8.3 H NT-Pro-B Natriuret Pep Not Reportable Total Protein 6.7 Albumin 3.9 Lipase 100 Procalcitonin 0.25 TSH 4.290 H Preliminary micro results at discharge 12/30/22 04:15 Blood Culture - Preliminary Blood NO GROWTH AFTER 72 HOURS 12/30/22 05:00 Blood Culture - Preliminary Blood NO GROWTH AFTER 72 HOURS Discharge Plan Discharge Disposition: Xfer Other Date of Admission: 12/30/22 08:10 Attending Provider on Discharge: Leandra Segura Primary Care Provider: Rosalio Conner Discharge Medications: New amoxicillin-pot clavulanate [Augmentin] 500-125 mg Tablet 1 tab PO BIDWM Qty: 14 0RF docosanol [Abreva] 10 % cream 1 applic topical 5XD PRN (Reason: cold sores) Qty: 2 0RF white petrolatum [Lip Treatment] Gel 1 applic topical 6XD PRN (Reason: dry skin) Qty: 113 0RF aspirin [Children's Aspirin] 81 mg Tablet,Chewable 81 mg PO DAILY Qty: 90 0RF Continued sennosides [senna] 8.6 mg tablet 8.6 mg PO BID lamotrigine 200 mg tablet 200 mg PO Q12H trazodone 50 mg tablet 50 mg PO TID quetiapine 100 mg tablet 100 mg PO TID risperidone 2 mg tablet 3 mg PO QAM gemfibrozil 600 mg tablet 600 mg PO BID propranolol 20 mg tablet 20 mg PO Q8H diazepam 5 mg tablet 5 mg PO BID escitalopram oxalate 10 mg tablet 10 mg PO DAILY cholecalciferol (vitamin D3) [Vitamin D3] 25 mcg (1,000 unit) tablet 25 mcg PO DAILY triamcinolone acetonide 0.1 % cream 1 applic topical BID Qty: 15 0RF atorvastatin 20 mg tablet 20 mg PO DAILY multivitamin [One Daily Essential] Tablet 1 tab PO DAILY lamotrigine 150 mg tablet 150 mg PO DAILY Qty: 30 0RF Rx Instructions: Add to 200 mg tablets in the evening to make a total of 350 mg per evening dose risperidone 1 mg tablet 3.5 mg PO QPM Discharge Orders: Discharge Order (Routine); Ordered 01/02/23 Ordered By: Leandra Segura Activity Level: Activity as Tolerated Discharge Diet: Heart Healthy (2 gm sodium, low fat) [facility] ([facility] ) Rosalio Conner MD [Primary Care Provider] - 01/17/23 (f/u hospitalization) Forms: [employer] [facility] Info Instructions
[2023-01-02 09:41] VITALS: BP 108/73; PULSE 66; RESP 16; TEMP 36.3
[2023-01-02 11:00] VITALS: BP 136/64; PULSE 76; RESP 18; TEMP 36.8; O2SAT 93
--- NOTE | 2023-01-02 15:17 | PC.NURSE ---
shift note: pt up with unsteady shuffled gait. pt incont/cont of urine. Pt assisted with am meal due to choking precautions. LS dim. vss stable. pt afeb. belongings sent with pt at dc. dc instructions sent with [facility] staff.
[2023-01-03 03:33] LABS: Hemoglobin A1C* 5.22 % (0-5.6)
== END 2023-01-02 11:53 | disposition other institution (70) | DRG 871 ==
LOC: ED 02:59 → MEDSURG 06:22
PROVIDERS: Family Medicine; Admitting Provider Family Medicine; Emergency Provider Family Medicine; PCP Family Medicine; Visit Provider Family Medicine
DX: A41.9 Sepsis, unspecified organism (principal); I21.A1 Myocardial infarction type 2; J18.9 Pneumonia, unspecified organism; J96.01 Acute respiratory failure with hypoxia; F72 Severe intellectual disabilities; E23.0 Hypopituitarism; G40.909 Epilepsy, unspecified, not intractable, without status epilepticus; E66.9 Obesity, unspecified; F42.9 Obsessive-compulsive disorder, unspecified; E78.5 Hyperlipidemia, unspecified; F63.81 Intermittent explosive disorder; B00.1 Herpesviral vesicular dermatitis
CPT/HCPCS: 36415; 51702; 51798; 70450; 71045; 71250; 80048; 80053; 80076; 82330; 82803; 83036; 83605; 83690; 83735; 83880; 84100; 84145; 84443; 84484; 84550; 85025; 85610; 86140; 87040; 87081; 87631; 93005; 93306; 94761; 97116; 97162; 97530; 99284; 99285; 99291; 99292; A9153; A9270; J1650; J2543; J3370; J7030; J7120; Q9957

== ENCOUNTER 2023-05-11 12:04 | Emergency (ER) | payer MEDICARE, MEDICAID, SELFPAY ==
[2023-05-11] VITALS (23 sets, daily range): BP systolic 91–99; BP diastolic 61–65; PULSE 84–98; RESP 16–20; TEMP 36.7–36.9; O2SAT 92–96; BMI 28.3
--- NOTE | 2023-05-11 12:39 | CRLHL7_ITS ---
For Patients: As a result of the Century Cures Act, medical imaging exams and procedure reports are released immediately into your electronic medical record. You may view this report before your referring provider. If you have questions, please contact your health care provider. INDICATION: Weakness. TECHNIQUE: Chest 2 views. COMPARISON: 01/15/2023. FINDINGS: Cardiovascular and mediastinum: Heart size and vasculature are normal in caliber and appearance. Lungs and pleural spaces: Lungs are clear. No sign of infiltrate or mass. No sign of pleural effusion. No pneumothorax. Bones and soft tissues: No significant findings. IMPRESSION: No acute findings and no significant changes from the prior exam. Dictated by Kingston Jaramillo MD @ 05/11/2023 3:22:45 PM (Electronically Signed)
--- OUTSIDE RECORDS SUMMARY | 2023-05-11 12:51 | XMS_ITS ---
Author Name Renettaleonora Matt Address [address] [place] [address] Organization [facility] Address [address] [place] [address] Care Team Providers Care Crusher Tender Name Role Phone Matt Coello Unavailable [phone] PROBLEMS Type Condition ICD9-CM Code NMA40-BU Code Onset Dates Condition Status SNOMED Code Problem Severe intellectual disabilities F72 Active 87041825 Problem Other specified disorders of bone density and structure, unspecified site M85.80 Active 47993270 Problem Other roasterman (current) drug therapy Z79.899 Active 881968233 Problem Generalized idiopathic epilepsy and epileptic syndromes, intractable, 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 ALLERGIES Substance Reaction Event Type Date Status Keflex Unknown Drug Allergy Mar, Active ENCOUNTERS Encounter Location Date Diagnosis [facility] [address] [facility] [address] [place] [address] Mar, [facility] [address] [facility] [address] [place] [address] Mar, Generalized idiopathic epilepsy and epileptic syndromes, intractable, 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 ; Other longterm (current) drug therapy Z79.899 and Other specified disorders of bone density and structure, unspecified site M85.80 [facility] [address] [facility] [address] [place] [address] Dec, [facility] [address] [place] [phone] Dec, [facility] [address] [place] [address] Dec, [facility] [address] [place] [address] January, [facility] [address] [place] [address] January, Generalized idiopathic epilepsy and epileptic syndromes, intractable, 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 [facility] [address] [place] [address] January, Generalized idiopathic epilepsy and epileptic syndromes, intractable, 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 ; Other longterm (current) drug therapy Z79.899 and Other specified disorders of bone density and structure, unspecified site M85.80 [facility] [address] [address] Dec, [facility] [address] [address] Aug, Generalized idiopathic epilepsy and epileptic syndromes, intractable, 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 [facility] [address] [address] Jul, [facility] [address] [address] 14 May, 2021 Generalized idiopathic epilepsy and epileptic syndromes, intractable, 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 [facility] [address] [address] Aug, Generalized idiopathic epilepsy and epileptic syndromes, intractable, 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 and Other longterm (current) drug therapy Z79.899 [facility] [address] [place] [address] 13 Nov, 2018 Generalized idiopathic epilepsy and epileptic syndromes, intractable, 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 and Other longterm (current) drug therapy Z79.899 [facility] [address] [place] [address] 13 Nov, 2017 Generalized idiopathic epilepsy and epileptic syndromes, intractable, 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 and Other longterm (current) drug therapy Z79.899 [facility] [address] [place] [address] Nov, [facility] [address] [place] [address] Nov, Generalized idiopathic epilepsy and epileptic syndromes, intractable, 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 and Other roasterman (current) drug therapy Z79.899 [facility] [address] [place] [address] Nov, [facility] [address] [place] [address] Oct, [facility] [address] [place] [address] Oct, Generalized idiopathic epilepsy and epileptic syndromes, intractable, 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 and Other roasterman (current) drug therapy Z79.899 [facility] [address] [address] Nov, Localization-related (focal) (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, 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 ; Unspecified vitamin D deficiency 268.9 ; 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 ; Encounter for long-term (current) use of other medications V58.69 and Severe mental retardation 318.1 [facility] [address] [address] Aug, [facility] [address] [address] Aug, [facility] [address] [place] [address] Aug, Unspecified vitamin D deficiency 268.9 ; Localization-related (focal) (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, 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 ; 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 ; Encounter for long-term (current) use of other medications V58.69 and Severe mental retardation 318.1 [facility] [address] [place] [address] Oct, [facility] [address] [place] [phone] Aug, [facility] [address] [place] [address] Aug, Localization-related (focal) (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, 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 ; 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 ; Severe mental retardation 318.1 ; Encounter for long-term (current) use of other medications V58.69 and Unspecified vitamin D deficiency 268.9 [facility] [address] [place] [address] May, [facility] [address] [place] [phone] Nov, [facility] [address] [address] Aug, Localization-related (focal) (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, 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 ; 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 ; Severe mental retardation 318.1 and Encounter for long-term (current) use of other medications V58.69 [facility] [address] [address] Mar, [facility] [address] [address] Mar, [facility] [address] [address] January, Localization-related (focal) (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, 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 ; 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 ; Severe mental retardation 318.1 and Encounter for long-term (current) use of other medications V58.69 [facility] [address] [address] Dec, [facility] [address] [address] Nov, Localization-related (focal) (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, 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 ; 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 ; Severe mental retardation 318.1 and Encounter for long-term (current) use of other medications V58.69 [facility] [address] [address] Dec, Localization-related (focal) (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, without mention of intractable epilepsy 345.40 ; Generalized convulsive epilepsy without mention of intractable epilepsy 345.10 and Severe mental retardation 318.1 [facility] [address] [facility] [address] [place] [address] Nov, IMMUNIZATIONS No Known Immunizations SOCIAL HISTORY Qualifiers Date nonsmoker REASON FOR REFERRAL FUNCTIONAL STATUS PLAN OF CARE Activity Details Follow Up prn in 1yr if needed . D/c back to PCP Reason: Future Test LAMOTRIGINE [id number] Pending Test COMPREHENSIVE METABO LIC PANEL Pending Test CBC (INCLUDES DIFF/P LT) Pending Test LAMOTRIGINE Pending Test COMPREHENSIVE METABO LIC PANEL Pending Test CBC (INCLUDES DIFF/P LT) Pending Test LAMOTRIGINE Pending Test Lamotrigine (Lamicta l), Serum VITAL SIGNS Weight 77.2 kg 2020-08-27 Weight 84 kg 2018-11-22 Weight 169 kg 2017-11-22 Weight 80 kg 2016-11-24 Weight 78.9 kg 2015-11-05 Weight 82.1 kg 2014-11-26 Weight 79.9 kg 2013-08-23 Weight 77.6 kg 2012-08-17 Weight 76.7 kg 2009-12-16 Height unable to obtain in 2020-08-27 Height unable to obtain in 2018-11-22 Height unable to obtain in 2017-11-22 Height unable to obtain in 2015-11-05 Height unable to obtain in 2014-11-26 Height unable to obtain in 2013-08-23 Height unable to obtain in 2012-08-17 Heart Rate attemptem, unable to obtain /min 2018-11-22 Heart Rate 83 /min 2017-11-22 Heart Rate attempted, unable to obtain /min 2016-11-24 Heart Rate 68 /min 2015-11-05 Heart Rate unable to obtain /min 2014-11-26 Heart Rate attempted, unable to obtain /min 2013-08-23 Heart Rate 82 /min 2011-09-09 Heart Rate deferred due to behavior /min 20 07-15-02 Heart Rate 70 and regular /min 2009-12-16 Blood pressure systolic 106 mm Hg Blood pressure diastolic 73 mm Hg 2017-11 MEDICATIONS Medication Instructions Dosage Frequency Start Date End Date Duration Status traZODone HCl 100mg Orally as directed 1 tablet qam, 2 tablets qhs Active Risperidone 1 MG 1.5 tabs at bedtime Active fluvoxaMINE Maleate 100 mg Orally twice a day (bid) 1 tablet Active clonazePAM 0.5 MG Orally three times a day (tid) 0.5 tablets Active lamoTRIgine 100 MG Orally as directed 3 tabs in AM and 3.5 tabs (350mg) in PM 30 days Active Gemfibrozil 600 MG Orally Twice a day 1 tablet 12h Active Vitamin D3 25 MCG (1000 UT) TAKE 1 TABLET BY MOUTH EVERY MORNING 28 Active Multi-Vitamin as directed Active RisperDAL 2 MG Orally three times a day (tid) 1 tablet Active Melatonin 3 MG Orally Once a day 1 tablet at bedtime as needed with food 24h Active Acetaminophen 500 MG Orally every as needed (prn) 2 tablets Active Senna 8.6 MG Orally twice a day (bid) 2 tablets Active PROCEDURES Procedure Date Ordered Result Body Site BP NOT ASSESS PATIENT NOT ELIGIBLE November 24, 2016 DOC MEDS VERIFIED W/PT OR RE Nov 05, 2015 DOC MEDS VERIFIED W/PT OR RE November 24, 2016 DOC MEDS VERIFIED W/PT OR RE November 22, 2017 BMI<30 AND >=22 CALC & DOCU November 22, 2017 DSCG MED/CURRENT MED MERGE November 22, 2017 TOBACCO NON-USER Sep 09, 2011 [facility] February 01, 2011 TOBACCO NON-USER Aug 17, 2012 TOBACCO NON-USER November 26, 2014 SEIZURE TYPE(S)+ FRQ DOCD Aug 23, 2013 AT LEAST 1 RX TRANSMIT ERX SYS Aug 23, 2013 DSCG MED/CURRENT MED MERGE Nov 05, 2015 DSCG MED/CURRENT MED MERGE November 26, 2014 EPI ETIOL SYND RVWD AND DOCD Aug 23, 2013 DSCG MED/CURRENT MED MERGE November 24, 2016 SEIZURE TYPE(S)+ FRQ DOCD Aug 17, 2012 PT INELIG FOR DEPRESSION SCR Nov 05, 2015 [facility] November 11, 2010 TOBACCO NON-USER November 24, 2016 PT VISIT DOC USING [facility] Aug 17, 2012 TOBACCO NON-USER November 22, 2017 [facility] Sep 09, 2011 PT INELIG FOR DEPRESSION SCR November 22, 2017 PT INELIG FOR DEPRESSION SCR November 24, 2016 TOBACCO NON-USER Aug 23, 2013 BP SCR PRFRM RCMDD DEFIND SCR INTVL Aug 17, 2012 AT LEAST 1 RX TRANSMIT ERX SYS Sep 09, 2011 EPI ETIOL SYND RVWD AND DOCD Aug 17, 2012 AT LEAST 1 RX TRANSMIT ERX SYS Aug 17, 2012 BP SCR NOT PRFRM REC REASON NOS Aug 23, 2013 TOBACCO NON-USER February 01, 2011 TOBACCO NON-USER Nov 05, 2015 BMI<30 AND >=22 CALC & DOCU November 24, 2016 DOC MEDS VERIFIED W/PT OR RE November 26, 2014 BMI<30 AND >=22 CALC & DOCU Nov 05, 2015 BP SCR PRFRM RCMDD DEFIND SCR INTVL Nov 05, 2015 RESULTS Name Result Date Reference Range LAMOTRIGINE 2022-01-20 LAMOTRIGINE 9.2 COMPREHENSIVE METABOLIC PANEL 2017-12-20 GLUCOSE UREA NITROGEN (BUN) CREATININE 1.00 eGFR NON-AFR. SWAZI eGFR BUN/CREATININE RATIO SODIUM 141 POTASSIUM CHLORIDE CARBON DIOXIDE CALCIUM PROTEIN, TOTAL ALBUMIN GLOBULIN ALBUMIN/GLOBULIN RATIO BILIRUBIN, TOTAL ALKALINE PHOSPHATASE 123 AST 21 ALT 20 EGFR CBC (INCLUDES DIFF/PLT) 2017-12-20 ABSOLUTE BASOPHILS ABSOLUTE EOSINOPHILS ABSOLUTE LYMPHOCYTES ABSOLUTE METAMYELOCYTES ABSOLUTE MONOCYTES ABSOLUTE PMN,ADULT BASOPHILS BLASTS CBC MORPHOLOGY COMMENT(S) EOSINOPHILS HEMATOCRIT HEMOGLOBIN IMMATURE GRAN IMMATURE GRAN ABSOLUTE LYMPHOCYTES MCH MCHC MCV METAMYELOCYTES MONOCYTES MORPHOLOGY MPV MYELOCYTES OTHER CELLS PLATELET COUNT PLATELET ESTIMATION PMN, ADULT PROMYELOCYTES RDW RED BLOOD CELL COUNT WHITE BLOOD CELL COUNT WHITE BLOOD CELL COUNT 6.0 RED BLOOD CELL COUNT HEMOGLOBIN 14.5 HEMATOCRIT MCV MCH MCHC RDW PLATELET COUNT 213 NEUTROPHILS BAND NEUTROPHILS ABSOLUTE BAND NEUTROPHILS METAMYELOCYTES ABSOLUTE METAMYELOCYTES MYELOCYTES ABSOLUTE MYELOCYTES PROMYELOCYTES ABSOLUTE PROMYELOCYTES ABSOLUTE NEUTROPHILS 3.2 LYMPHOCYTES REACTIVE LYMPHOCYTES ABSOLUTE LYMPHOCYTES MONOCYTES ABSOLUTE MONOCYTES EOSINOPHILS ABSOLUTE EOSINOPHILS BASOPHILS ABSOLUTE BASOPHILS BLASTS ABSOLUTE BLASTS NUCLEATED RBC ABSOLUTE NUCLEATED RBC COMMENT(S) MPV LAMOTRIGINE 2017-12-20 LAMOTRIGINE 8.9 COMPREHENSIVE METABOLIC PANEL 2016-11-24 ALBUMIN 4.6 3.6-5.1 CBC (INCLUDES DIFF/PLT) 2016-11-24 LAMOTRIGINE 2016-11-24 LAMOTRIGINE 10.9 4.0-18.0 COMPREHENSIVE METABOLIC PANEL 2015-11-05 ALBUMIN 4.6 3.6-5.1 CBC (INCLUDES DIFF/PLT) 2015-11-05 LAMOTRIGINE 2015-11-05 LAMOTRIGINE 10.6 4.0-18.0 AST (SGOT) 2014-12-30 AST (SGOT) 22 ALT (SGPT) 2014-12-30 Request Problem Specimen Status Report ALT (SGPT) 24 Lamotrigine (Lamictal), Serum 2014-12-30 Alessandra De Diosv [id number] Default Corrected Report Comment Please note Request Problem Specimen Status Report Lamotrigine, Serum 12.9 2.5 - 15 ug/ml Lamotrigine, Serum AST (SGOT) 2013-11-22 AST (SGOT) 16 ALT (SGPT) 2013-11-22 Request Problem Specimen Status Report ALT (SGPT) 25 Lamotrigine (Lamictal), Serum 2013-11-22 Ambsymone Abbrev CMP14 Default Corrected Report Comment Please note Request Problem Specimen Status Report Lamotrigine, Serum 7.6 2.5 - 15 ug/ml Lamotrigine, Serum AST (SGOT) 2012-08-17 AST (SGOT) 14 0-40 ALT (SGPT) 2012-08-17 ALT (SGPT) 15 0-44 Vitamin D, 25-Hydroxy 2012-08-17 Vitamin D, 25-Hydroxy 38.4 30.0-1 00.0 Lamotrigine (Lamictal), Serum 2012-08-17 REASON FOR VISIT fax info on 04/07/23, Telemedicine visit for follow up regarding epilepsy, yearly, Rx Question/Concerns, Why Was Called?, update - pt admitted ([id number]-ccyygus), Fax Lab Orders, med refills, Follow up regarding epilepsy, Transfer of care from Dr. Sahni to Dr. Coello, TCB 12/23 -- appointmentwith Dr. Coello, Follow up regarding epilepsy, Transfer of care from Dr. Sahni to Dr. Coello, Lamotrigine Refill, appt with Dr. Coello , ltg refill, Follow up regarding epilepsy, Follow up regarding epilepsy, Follow up regarding epilepsy, Follow up regarding epilepsy, copy of results for blood lab needed, Follow up regarding epilepsy, follow up, Follow up regarding epilepsy, cx by , has another appt. -12 month f/u, ltg refill, ltg refill, Follow up regarding epilepsy, 2/25 LMTCB- possibleseizure, 12 month follow up visit for care of intractable epilepsy, szs & took wrong meds, Requests lab results from 09/09/11, 6 month follow up visit for care of intractable epilepsy, having more ghulam, Josh from another MD, 12-month follow up visit for care of epilepsy, Saulo was previouslyseeing Dr. Umer Cisse for care of his seizure disorder, 2nd Call, Follow-up appointment, EMR prep, Epilepsy Insurance Providers Health Insurance Type Health Plan Insurance Address Health Plan Insurance Phone Health Plan Insurance Name Health Plan Coverage Dates Member ID Patient Relationship to Subscriber Patient Address Patient Phone Patient Name Patient Date of Subscriber ID Subscriber Name Subscriber Date of Group No [place] [address] [place] [id number] [place] self Saulo Nimco [id number] [place] [address] [address] [facility] [id number] [place] Saulo Nimco [id number] [place] [address] [place] [id number] [place] self Saulo Nimco [id number]
[2023-05-11 13:52] LABS: PCR FLU A Negative PCR FLU A (Negative); PCR FLU B Negative PCR FLU B (Negative); PCR RSV Negative PCR RSV (Negative)
[2023-05-11 13:53] LABS: SARS PCR* Negative SARS-CoV-2 (Negative)
[2023-05-11 13:59] LABS: Lactate* 2.5 mmol/L (0.5-1.9)
[2023-05-11 14:02] LABS: Basophils Percent Auto 0.1 % (0.0-3.0); Hematocrit 41.4 % (37.0-53.0); Hemoglobin* 13.5 gm/dL (13.5-17.5); Immature Granulocytes Pct Auto 0.2 %; Lymphocytes Percent Auto 12.5 % (20-44); Mean Corpuscular HGB Conc 33 gm/dL (32-36); Mean Corpuscular Hemoglobin 28 pg (26-34); Mean Corpuscular Volume 87 fL (80-100); Neutrophils Percent Auto 80.2 % (42.0-72.0); Platelet Count* 201 K/uL (140-440); RDW Coefficient of Variation % 13.6 % (11.5-15.5); Red Blood Count 4.77 m/uL (4.30-5.90); White Blood Count* 11.67 K/uL (4.50-11.00)
[2023-05-11 14:04] LABS: Slide Review Reflex No
--- NOTE | 2023-05-11 14:05 | ED.NURSE ---
Pt troponin 0.10, MD notified
[2023-05-11 14:16] LABS: Chloride* 97 mmol/L (96-114); Sodium* 135 mmol/L (135-149)
[2023-05-11 14:17] LABS: Potassium* 4.2 mmol/L (3.6-5.1)
[2023-05-11 14:19] LABS: Est. Creatinine Clearance* 69.73; Estimated Glomerular Filt Rate 95 ml/min
[2023-05-11 14:20] LABS: Anion Gap 12 mEq/L (7-15); Blood Urea Nitrogen* 21 mg/dL (5-24); Calcium* 9.4 mg/dL (8.4-10.6); Carbon Dioxide* 26 mmol/L (20-32); Glucose* 85 mg/dL (60-115)
[2023-05-11 14:23] LABS: C Reactive Protein* 5.6 mg/dL (0.5-1.0)
[2023-05-11 14:33] LABS: Troponin I* < 0.01 ng/mL (0.01-0.04)
[2023-05-11 15:13] LABS: Troponin, Point-of-Care* 0.01 ng/ml (0.01-0.04)
[2023-05-11] MEDS: 0.9 % SODIUM CHLORIDE 1000 ml 1,000 ML IV (15:40)
--- NOTE | 2023-05-11 15:46 | ED.WEAKNESS ---
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 [place], has a history of not really being able to walk, but today when he was at his job. Noted that he was too weak and was a 2 person assist. He has not had any problems with eating or drinking, does not give any verbal history at all. No nausea vomiting, no history of fevers or chills. He has a no overt see seizures which is a chronic problem for [facility]. 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 MD Complaint: generalized weakness and difficulty walking Related Data Home Medications Medication Instructions Recorded Confirmed cholecalciferol (vitamin D3) 25 25 mcg PO DAILY 04/19/22 05/11/23 mcg (1,000 unit) tablet (Vitamin D3) diazepam 5 mg tablet 5 mg PO BID 04/19/22 05/11/23 escitalopram oxalate 10 mg tablet 10 mg PO DAILY 04/19/22 05/11/23 gemfibrozil 600 mg tablet 600 mg PO BID 04/19/22 01/15/23 lamotrigine 200 mg tablet 300 mg PO Q12H 04/19/22 05/11/23 quetiapine 100 mg tablet 100 mg PO TID 04/19/22 05/11/23 risperidone 2 mg tablet 2 mg PO BID@,04/19/22 05/11/23 trazodone 50 mg tablet 50 mg PO TID 04/19/22 05/11/23 atorvastatin 20 mg tablet 20 mg PO DAILY 06/28/22 05/11/23 multivitamin (One Daily Essential 1 tab PO DAILY 06/28/22 05/11/23 tablet) risperidone 1 mg tablet 1 mg PO BID@14,12/30/22 01/15/23 acetaminophen 500 mg capsule 1,000 mg PO Q6H PRN 01/15/23 05/11/23 acetic acid 2 % ear solution 4 drp otic (ear) TID 01/15/23 05/11/23 clotrimazole 1 % topical cream 1 applic topical BID 01/15/23 01/15/23 escitalopram oxalate 5 mg tablet 5 mg PO DAILY 01/15/23 01/15/23 (Lexapro) loperamide 2 mg capsule (Imodium 2 - 4 mg PO PRN PRN 01/15/23 05/11/23 A-D) risperidone 1 mg tablet 0.5 mg PO QHS 01/15/23 01/15/23 acyclovir 400 mg tablet 400 mg PO 3XD 05/11/23 05/11/23 triamcinolone acetonide 0.1 % 1 applic topical BID-TID 05/11/23 05/11/23 topical cream Previous Rx's Medication Instructions Recorded aspirin 81 mg chewable tablet 81 mg PO DAILY #90 tabs 01/02/23 (Children's Aspirin) white petrolatum (Lip Treatment 1 applic topical 6XD PRN dry skin 01/02/23 topical jelly) #113 grams propranolol 10 mg tablet 10 mg PO TID #90 tabs 01/16/23 sennosides 8.6 mg tablet 25.8 mg (3 x 8.6 mg) PO DAILY #90 01/16/23 tabs [id number] 3.3 4 drp Otic (ear-left) TID 10 days 05/11/23 mg-3 mg-10 mg-0.5 mg/mL ear #10 mL drops,susp (Cortisporin-TC) Allergies Allergy/AdvReac Type Severity Reaction Status Date / Time Cephalosporins Allergy Mild Rash Verified 05/11/23 12:23 Review of Systems Status of ROS: Reports: unobtainable due to mental status 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 Sees Dr. Conner for primary care. code status is full. He does not smoke or drink alcohol Highest level of school completed/degree received: don't know Smoking Status: Never smoker Do you use any of these nicotine containing products: None Second hand tobacco smoke exposure: No How often do you have a drink containing alcohol: never How often do you have six or more drinks on one occasion: Never AUDIT-C Alcohol total score: 0 Non-prescribed substance use: denies use Caffeine: No service: No Exam Narrative: Exam Narrative: Patient is seen in room 7, he was able to get from the wheelchair, to the bed by just going on all fours and squirelling himself up there. He is nonverbal, follows my commands pretty normally, his pupils are equal round reactive to light, tracks normally oropharynx is a little bit dry he has some dried crusty nature on his left external canal, which I believe that he has a history of otitis externa. Right-sided has some dryness 2 but not as bad, there is no mastoid tenderness or pain there is no lymphadenopathy anterior posterior chains, cranial nerves 3-12 are otherwise normal his chest is clear bilaterally with no wheezing crackles noted his heart sounds are normal no clicks murmurs or gallops his abdomen is soft there is no guarding no organomegaly, pelvis is normal stable, to rocking, no CVA tenderness moves all extremities independently well with no focal neurologic issues. Const: Vital Signs, click to edit/add: Vital Signs - 24 hr 05/11/23 12:17 05/11/23 13:11 05/11/23 13:11 Temperature 98.5 F 98.1 F Pulse Rate 92 Pulse Rate [Left P ulse Oximeter] 97 Respiratory Rate 16 20 Blood Pressure Blood Pressure [Ri ght Upper Arm] 91/63 Pulse Oximetry 95 95 95 Oxygen Delivery Me thod Room Air 05/11/23 13:15 05/11/23 13:30 05/11/23 13:46 Temperature Pulse Rate 94 92 90 Pulse Rate [Left P ulse Oximeter] Respiratory Rate Blood Pressure Blood Pressure [Ri ght Upper Arm] Pulse Oximetry 96 94 94 Oxygen Delivery Me thod 05/11/23 13:54 05/11/23 13:54 05/11/23 14:00 Temperature Pulse Rate 91 92 Pulse Rate [Left P ulse Oximeter] 98 Respiratory Rate 20 Blood Pressure 94/61 Blood Pressure [Ri ght Upper Arm] 94/61 Pulse Oximetry 94 93 92 Oxygen Delivery Me thod Room Air 05/11/23 14:14 05/11/23 14:15 05/11/23 14:30 Temperature Pulse Rate 88 88 89 Pulse Rate [Left P ulse Oximeter] Respiratory Rate Blood Pressure 94/64 Blood Pressure [Ri ght Upper Arm] Pulse Oximetry 93 93 93 Oxygen Delivery Me thod 05/11/23 14:32 05/11/23 14:45 05/11/23 15:00 Temperature Pulse Rate 90 88 87 Pulse Rate [Left P ulse Oximeter] Respiratory Rate Blood Pressure 94/64 Blood Pressure [Ri ght Upper Arm] Pulse Oximetry 93 94 94 Oxygen Delivery Me thod 05/11/23 15:01 05/11/23 15:15 05/11/23 15:30 Temperature Pulse Rate 88 85 86 Pulse Rate [Left P ulse Oximeter] Respiratory Rate Blood Pressure 99/62 Blood Pressure [Ri ght Upper Arm] Pulse Oximetry 94 95 93 Oxygen Delivery Me thod 05/11/23 15:31 05/11/23 15:32 05/11/23 15:45 Temperature Pulse Rate 86 84 88 Pulse Rate [Left P ulse Oximeter] Respiratory Rate Blood Pressure 95/65 Blood Pressure [Ri ght Upper Arm] Pulse Oximetry 93 95 93 Oxygen Delivery Me thod 05/11/23 16:00 05/11/23 16:15 05/11/23 16:43 Temperature 98.3 F Pulse Rate 88 85 Pulse Rate [Left P ulse Oximeter] Respiratory Rate Blood Pressure Blood Pressure [Ri ght Upper Arm] Pulse Oximetry 96 96 Oxygen Delivery Me thod Documenting provider has reviewed patient's vital signs: yes Course Course Hospital Course: Drawn came back to his normal self he is able to get up with 1 person assist and walk around, he is normally on stable. He was very vocal here in the emergency room, and I suspected that this was related to some seizure any was postictal when we initially saw him. His workup was relatively negative a slightly elevated white count which is normal for this or to situation. His chest x-ray was normal, along with the the urinalysis. His lactate was a little bit elevated, but that is also very normal with postictal he did have the left otitis externa/dry ears we will put him on some drops for this. And I will get him to follow-up overall he is for sure back to baseline at this point. Unfortunately the 1st troponin I believe was wrong, this is the 2nd 1 was normal. It was to do with the error on the part of the person drawing it. Repeat lab troponin was negative. Vital Signs Vital signs: Initial Vital Signs Temperature 98.5 F 05/11/23 12:17 Temperature Source Temporal Artery Scan 05/11/23 12:17 Pulse Rate 97 05/11/23 12:17 Respiratory Rate 16 05/11/23 12:17 Blood Pressure 91/63 05/11/23 12:17 Blood Pressure Mean 72 05/11/23 12:17 Blood Pressure Position Sitting 05/11/23 12:17 Pulse Oximetry 95 05/11/23 12:17 Oxygen Delivery Method Room Air 05/11/23 12:17 Vital Signs Temperature 98.5 F 05/11/23 12:17 Pulse Rate 97 05/11/23 12:17 Respiratory Rate 16 05/11/23 12:17 Blood Pressure 91/63 05/11/23 12:17 Pulse Oximetry 95 05/11/23 12:17 Oxygen Delivery Method Room Air 05/11/23 12:17 Temperature 98.3 F 05/11/23 16:43 Pulse Rate 85 05/11/23 16:15 Respiratory Rate 20 05/11/23 13:54 Blood Pressure 95/65 05/11/23 15:31 Pulse Oximetry 96 05/11/23 16:15 Oxygen Delivery Method Room Air 05/11/23 13:54 MDM - Weakness MDM Narrative Medical decision making narrative: Life-threatening differential diagnosis considered include stroke, coronary artery disease, pneumonia, and heart failure. Other differential diagnosis include but are not limited to electrolyte imbalances, anemia, medication reactions, and urinary tract infection Initial troponin was elevated 0.1 but the follow-up 90 minutes later was 0.0 once I suspect that this is lab error, I will do another 1 just to see his EKG did not show any acute ST wave changes. His chest x-ray is otherwise normal in his urine was clean, along with this swabs for viral studies. We will give him some fluids, I will assess him in worries at. This may be as simple as an otitis externa going on for him. Medical Records Attestation: I reviewed the patient's medical records. Lab Data Attestation: I reviewed the patient's lab results. Labs: Lab Results 05/11/23 05/11/23 05/11/23 Range/Units 12:40 12:54 13:53 WBC 11.67 H (4.50-11.00) K/uL RBC 4.77 (4.30-5.90) m/uL Hgb 13.5 (13.5-17.5) gm/dL Hct 41.4 (37.0-53.0) % MCV 87 (80-100) fL MCH 28 (26-34) pg MCHC 33 (32-36) gm/dL RDW Coeff of Dileep 13.6 (11.5-15.5) % Plt Count 201 (140-440) K/uL Neut % (Auto) 80.2 H (42.0-72.0) % Lymph % (Auto) 12.5 L (20-44) % [place] % (Auto) 7.0 (0.0-11.0) % Eos % (Auto) 0.0 (0.0-7.0) % Baso % (Auto) 0.1 (0.0-3.0) % Neut # (Auto) 9.40 H (1.7-7.0) K/uL Lymph # (Auto) 1.50 (0.90-2.90) K/uL [place] # (Auto) 0.80 (0.00-0.90) K/UL Eos # (Auto) 0.00 (0.00-0.50) K/uL Baso # (Auto) 0.00 (0.00-0.30) K/uL Abs Immat Gran (auto) 0.00 (0.00-0.30) K/uL Imm/Tot Granulo (auto) 0.2 % Sodium 135 (135-149) mmol/L Potassium 4.2 (3.6-5.1) mmol/L Chloride 97 (96-114) mmol/L Carbon Dioxide 26 (20-32) mmol/L Anion Gap 12 (7-15) mEq/L BUN 21 (5-24) mg/dL Creatinine 1.0 (0.5-1.5) mg/dL Estimated Creat Clear 69.73 Estimated GFR 95 ml/min Glucose 85 (60-115) mg/dL Lactate 2.5 H (0.5-1.9) mmol/L Calcium 9.4 (8.4-10.6) mg/dL Troponin I < 0.01 L (0.01-0.04) ng/mL C-Reactive Protein 5.6 H (0.5-1.0) mg/dL SARS-CoV-2 (PCR) Negative SARS-CoV-2 (Negative) Influenza Type A (PCR) Negative PCR FLU A (Negative) Influenza Type B (PCR) Negative PCR FLU B (Negative) RSV (PCR) Negative PCR RSV (Negative) POC Troponin I 0.10 H (0.01-0.04) ng/ml 05/11/23 05/11/23 05/11/23 Range/Units 14:00 14:38 16:26 WBC (4.50-11.00) K/uL RBC (4.30-5.90) m/uL Hgb (13.5-17.5) gm/dL Hct (37.0-53.0) % MCV (80-100) fL MCH (26-34) pg MCHC (32-36) gm/dL RDW Coeff of Dileep (11.5-15.5) % Plt Count (140-440) K/uL Neut % (Auto) (42.0-72.0) % Lymph % (Auto) (20-44) % [place] % (Auto) (0.0-11.0) % Eos % (Auto) (0.0-7.0) % Baso % (Auto) (0.0-3.0) % Neut # (Auto) (1.7-7.0) K/uL Lymph # (Auto) (0.90-2.90) K/uL [place] # (Auto) (0.00-0.90) K/UL Eos # (Auto) (0.00-0.50) K/uL Baso # (Auto) (0.00-0.30) K/uL Abs Immat Gran (auto) (0.00-0.30) K/uL Imm/Tot Granulo (auto) % Sodium (135-149) mmol/L Potassium (3.6-5.1) mmol/L Chloride (96-114) mmol/L Carbon Dioxide (20-32) mmol/L Anion Gap (7-15) mEq/L BUN (5-24) mg/dL Creatinine (0.5-1.5) mg/dL Estimated Creat Clear Estimated GFR ml/min Glucose (60-115) mg/dL Lactate (0.5-1.9) mmol/L Calcium (8.4-10.6) mg/dL Troponin I Cancelled < 0.01 L (0.01-0.04) ng/mL C-Reactive Protein (0.5-1.0) mg/dL SARS-CoV-2 (PCR) (Negative) Influenza Type A (PCR) (Negative) Influenza Type B (PCR) (Negative) RSV (PCR) (Negative) POC Troponin I 0.01 (0.01-0.04) ng/ml Imaging Data Chest x-ray: Attestation: I have reviewed the pertinent imaging results. My impression: Chest x-ray by my review shows no acute findings Radiologist's impression: Patient: KINGSLEY KERNS Facility: [facility] Site . Site : 1980 Study: XRay Chest 2V-05/11/2023 2:15:42 PM Ordering Physician: Seper Jarvis Final Report: INDICATION: Weakness. TECHNIQUE: Chest 2 views. COMPARISON: 01/15/2023. FINDINGS: Cardiovascular and mediastinum: Heart size and vasculature are normal in caliber and appearance. Lungs and pleural spaces: Lungs are clear. No sign of infiltrate or mass. No sign of pleural effusion. No pneumothorax. Bones and soft tissues: No significant findings. IMPRESSION: No acute findings and no significant changes from the prior exam. Dictated by Kingston Jaramillo MD @ 05/11/2023 3:22:45 PM (Electronic Signature) ECG Data Attestation: I personally reviewed and interpreted this ECG as follows: ECG interpretation date: 05/11/23 Interpretation: EKG shows normal sinus rhythm, no acute ST wave changes, otherwise normal. Discharge Plan Discharge Clinical Impression: Postictal state, Cognitive developmental delay, Otitis externa, Seizure disorder Patient Disposition: Home w/ Parent or Adult Condition: Stable Instructions: Swimmer's Ear (ED) Additional Instructions: Home rest use of a drops in the ear, return as needed. I suspect this was related to some sort of seizure with a postictal period. Prescriptions: New Cortisporin-TC 3.3-3-10-0.5 mg/mL drops,suspension 4 drp Otic (ear-left) TID 10 Days Qty: 10 0RF No Action lamotrigine 200 mg tablet 300 mg PO Q12H trazodone 50 mg tablet 50 mg PO TID quetiapine 100 mg tablet 100 mg PO TID risperidone 2 mg tablet 2 mg PO BID@14,21 gemfibrozil 600 mg tablet 600 mg PO BID diazepam 5 mg tablet 5 mg PO BID escitalopram oxalate 10 mg tablet 10 mg PO DAILY cholecalciferol (vitamin D3) [Vitamin D3] 25 mcg (1,000 unit) tablet 25 mcg PO DAILY acetaminophen 500 mg capsule 1,000 mg PO Q6H PRN acetic acid 2 % solution 4 drp otic (ear) TID Rx Instructions: 4 drops both ears TID clotrimazole 1 % cream 1 applic topical BID escitalopram oxalate [Lexapro] 5 mg tablet 5 mg PO DAILY loperamide [Imodium A-D] 2 mg capsule 2 - 4 mg PO PRN PRN risperidone 1 mg tablet 0.5 mg PO QHS Patient Comments: TAKES ALONG WITH 3 MG HS DOSE propranolol 10 mg tablet 10 mg PO TID Qty: 90 2RF sennosides 8.6 mg tablet 25.8 mg PO DAILY Qty: 90 1RF atorvastatin 20 mg tablet 20 mg PO DAILY multivitamin [One Daily Essential] Tablet 1 tab PO DAILY risperidone 1 mg tablet 1 mg PO BID@14,21 white petrolatum [Lip Treatment] Gel 1 applic topical 6XD PRN (Reason: dry skin) Qty: 113 0RF aspirin [Children's Aspirin] 81 mg Tablet,Chewable 81 mg PO DAILY Qty: 90 0RF acyclovir 400 mg tablet 400 mg PO 3XD triamcinolone acetonide 0.1 % cream 1 applic topical BID-TID Follow Up/Referrals: Rosalio Conner MD [Primary Care Provider] - Stand Alone Forms: [employer] Info Instructions
--- NOTE | 2023-05-11 16:42 | ED.NURSE ---
IV in pt R forearm infiltrated, area of swelling noted around IV site. IV DC'd, catheter intact. Area of swelling wrapped with coban.
--- NOTE | 2023-05-11 16:43 | ED.NURSE ---
Took pt on a 7ft ambulation to the hallway. Pt walked, gait fairly unsteady but understood to be at his baseline.
--- NOTE | 2023-05-11 17:04 | ED.NURSE ---
pt is up in wheelchair, having crackers and apple juice. More alert and chatty
[2023-05-11 17:09] LABS: Troponin I* < 0.01 ng/mL (0.01-0.04)
== END 2023-05-11 17:38 | disposition home or self-care (01) ==
PROVIDERS: Emergency Provider Family Medicine; PCP Family Medicine
DX: R40.4 Transient alteration of awareness (principal); G40.909 Epilepsy, unspecified, not intractable, without status epilepticus; R62.50 Unspecified lack of expected normal physiological development in childhood; H60.92 Unspecified otitis externa, left ear
CPT/HCPCS: 36415; 71046; 80048; 80306; 81001; 83605; 84484; 85025; 86140; 87631; 93005; 94761; 96360; 99284; 99285; J7030

== ENCOUNTER 2023-06-29 14:30 | Outpatient (RCR) | payer MEDICARE, MEDICAID, SELFPAY ==
--- NOTE | 2023-06-06 13:40 | PT.OPEX ---
PT [facility] Outpatient Eval PT [facility] Outpatient Eval Start: 06/03/23 13:58 Freq: Status: Active Protocol: Document 06/03/23 16:12 ARGENIS (Rec: 06/03/23 16:13 ARGENIS [id number]) E-signed By Monica Austin PT Physical Therapy Outpatient Evaluation Insurance Information Recert Due Date 08/31/23 Insurance Name Medicaid Medical Diagnosis UNSTEADY GAIT R 26.81 Treating Diagnosis GAIT ABNORMALITY R29.9 FALLS R29[address] RUCHI ALLEN Subjective Subjective PATIENT IS ACCOMPANIED BY HIS CAREGIVER FROM [facility] HE PRESENTS NON VERBAL BUT ABLE TO BE COAXED WITH CANDY. HIS CG STATES, HE IS HERE TO GET AN EVALUATION TO SEE IF HE CAN USE A WALKER B/C HE HAS FALLEN SO MUCH LATELY. Date of Last Physician Visit 05/10/23 Occupation DISABILITY Preferred Name KINGSLEY Precautions Therapy Limitations/Systems Review Communication Ability,Affect, Cognition,Other Medical Problem Assessment Assessment/Impression PATIENT IS A 42 YO REFERRED TO PHYSICAL THERAPY BY DR. ALLEN TO EVAL AND TREAT UNSTABLE GAIT. PMHX INCLUDES BUT NOT LIMITED TO HYPOTENSION , H/O MRSA, OCD, OBESITY, CHRONIC CONSTIPATION, HLD, PITUITARY DWARFISM, EPILEPSY, INTERMITTENT EXPLOSIVE BEHAVIOR, SEIZURES, SEVERE INTELLECTUAL DEVELOPMENTAL DISORDER, H/O ORIF (ANKLE), RECENT MULTIPLE FALLS AND MULTIPLE HOSPITALIZATION OVER THE LAST 6 (+) MONTHS D/T A [place] OF HEALTH CONDITIONS. PATIENT REQUIRES MIN A>MOD A FOR LIMITED AMB NOTING BILATERAL GENU VALGUM AND CROUCHED GAIT WITH POOR FOOT CLEARANCE AND STEP LENGTH REQUIRING FREQUENT VC AND MANUAL ASSISTANCE TO STAND UPRIGHT HIS UPPER TRUNK MIGRATES ANTERIORLY NEARLY TRIPPING OVER HIS FEET. HE IS SBA FOR STS WITH INCREASED BASE OF SUPPORT. HE IS ABLE TO PERFORM MULTIPLE STS (10) WITH VC TO STAND TALL AND REWARDED WITH GUMMY BEARS ONCE COMPLETED. HE IS ABLE TO FOLLOW ONE STEP COMMANDS AND MOTIVATED BY CANDY TO PERFORM TASK. WE ATTEMPTED TO AMB TO GYM ~100FT BUT CLEARLY FATIGUED W/IN ~50-60FT NOTING INCREASED DRAGGING OF FEET AND INCREASED ASSISTANCE TO REMAIN UPRIGHT. WE TRIALED A FWW AND HE SEEMED TO TAKE TO IT QUICKLY IN TERMS OF HAND PLACEMENT AND KNOW WHAT TO DO WITH THE WALKER BUT COULD NOT REMOTELY KEEP CLOSE TO HIM AND, INEVITABLY, BECAME ANOTHER FALL HAZARD. I INSTRUCTED CAREGIVER TO ADD 5- 10 STS AFTER EA MEAL TO PROVIDE AN OPPORTUNITY TO FUNCTIONALLY STRENGTHEN HIS BLE AND ENCOURAGE HIM TO STAND TALL TO EMPHASIZE POSTERIOR CHAIN. THE FOLLOW THROUGH IS LIMITED D/T NOT ONLY THE PATIENT'S CAPACITY BUT ALSO IN LIGHT OF THE OTHER CLIENTS THE CAREGIVERS ARE CARING FOR. HE IS APPROPRIATE FOR SKILLED PHYSICAL THERAPY TO ASSIT WITH BALANCE TRAINING AND BLE STRENGTHENING TO REDUCE HIS RISK FOR FALLS WELL TO ATTEMPT ONE MORE TIME USING THE FWW TO ASSIST WITH POSTURING AND BALANCE. Primary Functional Limitations COGNITION GAIT STDG TRANSFERS BALANCE Plan of Care Rehabilitation Potential Fair Physical Therapy Goals IN 4 WEEKS: 1. PATIENT WILL WALK CONSISTENTLY AND SAFELY WITHIN ASSISTED WITH SUPERVISION AND CGA FOR LIMITED COMMUNITY AMB. 2. PATIENT WILL DEMONSTRATE IMPROVED FOOT CLEARANCE TO REDUCE HIS RISK FOR FALLS. 3. PATIENT AND CAREGIVER WILL DEMONSTRATE THE ABILITY TO PERFORM HEP TO FURTHER PROGRESS HIS STRENGTH AND REDUCE RISK FOR FALLS. Coordination/Communication With Referral Source,Patient Caregiver Treatment Plan/Direct Interventions Gait Training,Neuromuscular Re -ed,Therapeutic Activities, Therapeutic Exercises Patient Will Be Discharged From Therapy Completion of LTG(s),Skills Plateau Discharge Plan Comments DISCHARGE TO CARE OF ASSISTED AND PCP WHEN GOALS MET. Evaluation Billing Untimed Code Treatment Minutes 30 PT Eval No Charge No Complexity High Certification Information Initial Certification Date 06/03/23 Ending Certification Date 08/02/23 Provider Signature Shows Agreement With POC & Medical Necessity Physician Signature & Date Requested Please Sign/Date Here Physician Comment/Change : Physician NPI Number #
== END 2023-07-27 10:58 | disposition home or self-care (01) ==
PROVIDERS: PCP Family Medicine; Visit Provider Family Medicine
DX: R26.81 Unsteadiness on feet (principal); Z51.89 Encounter for other specified aftercare
CPT/HCPCS: 97110; 97116; 97163

== ENCOUNTER 2023-10-06 11:33 | Outpatient (CLI) | payer MEDICARE, MEDICAID, SELFPAY ==
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
--- OUTSIDE RECORDS SUMMARY | 2023-10-07 16:29 | XMS_ITS | Patient Health Record ---
Author Name Unknown Organization 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) Active confirmed Problem Other specified disorders of bone density and structure, unspecified site (M85.80) Active confirmed Disorder of bone (92945034) Problem Other crew foreman (current) drug therapy (Z79.899) Active confirmed Long-term current use of drug therapy ([id number]) Encounters Encounter Location Date Provider Diagnosis [facility] [address] [place] [address] 04/05/2023 [facility] [address] [place] [address] 04/06/2023 [facility] Generalized idiopathic epilepsy and epileptic syndromes, intractable, 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 ; Other crew foreman (current) drug therapy Z79.899 and Other specified disorders of bone density and structure, unspecified site M85.80 [facility] [address] [place] [address] 12/29/2022 [facility] [address] [place] [address] 01/03/2023 [facility] [address] [place] [address] 01/07/2023 [facility] [address] [place] [address] 04/06/2023 [facility] ASSESSMENTS Encounter Date Diagnosis Assessment Notes Treatment [...] to the primary care physician. 04/06/2023 Other crew foreman (current) drug therapy (ICD-10 - Z79.899) I [...] patient, Saulo Rinaldi, was at home in [place], [place], and the provider, Dr. Matt Coello, was located in [place], [place]. The televisit started at 0931 AM [...] or concerns. Thank you for choosing the [facility]! PLAN OF TREATMENT Pending Test [...] Date MEDICARE [place] [address] [facility] [place] [id number] Saulo Rinaldi Self - patient is the insured MED[place] [address] [address] [place] [id number] Saulo Rinladi Self - patient is the insured MEDICAL (GENERAL) HISTORY Medical History History ICD Code Severe mental retardation Chronic behavior problem (aggression) Epilepsy Surgical History Surgery Date(Month/Year) repaired fractured tibia, sprained right foot 05/20/2019 Hospitalization History Reason Date(Month/Year)
== END 2023-10-06 11:34 | disposition home or self-care (01) ==
LOC: AMB 10-07 16:26
PROVIDERS: PCP Family Medicine; Visit Provider Family Medicine
DX: R41.82 Altered mental status, unspecified (principal)
CPT/HCPCS: A0425; A0427

== ENCOUNTER 2023-10-06 12:09 | Emergency (ER) | payer MEDICARE, MEDICAID, SELFPAY ==
[2023-10-06] VITALS (8 sets, daily range): BP systolic 110–119; BP diastolic 71–86; PULSE 73–98; RESP 16; TEMP 35.7; O2SAT 95–98; BMI 25.0
--- NOTE | 2023-10-06 12:18 | CRLHL7_ITS ---
For Patients: As a result of the Century Cures Act, medical imaging exams and procedure reports are released immediately into your electronic medical record. You may view this report before your referring provider. If you have questions, please contact your health care provider. INDICATION: Fell a few days prior. Possible seizure COMPARISON: December 30, 2022 TECHNIQUE: CT examination of the head was performed as axial sections without intravenous contrast. Images were obtained from the vertex of the skull through the skull base. Please note that all CT scans at this facility use dose modulation, iterative reconstruction, and/or weight-based dosing when appropriate to reduce radiation dose to as low as reasonably achievable. FINDINGS: The brain shows no sign of mass lesion, mass effect, hemorrhage, or edema. The ventricles and sulci are normal in appearance for the patient`s age. The visualized portions of the orbits are normal in appearance. The osseous structures are normal in their appearance with no sign of abnormality in the skull base or calvarium. IMPRESSION: Normal unenhanced head CT. Please note that all CT scans at this facility use dose modulation, iterative reconstruction, and/or weight-based dosing when appropriate to reduce radiation dose to as low as reasonably achievable. Dictated by Rock Marin MD @ 10/06/2023 1:10:27 PM (Electronically Signed)
--- NOTE | 2023-10-06 12:27 | ED.GENADULT ---
HPI - General Adult General Date Seen: 10/06/23 Chief complaint: Altered Mental Status Stated complaint: Unresponsive Time Seen by Provider: 10/06/23 12:10 Source: EMS, RN notes reviewed, old records reviewed and other Mode of arrival: EMS Limitations: physical limitation History of Present Illness HPI narrative: Patient is a 42-year-old male who lives at [facility]. He is nonverbal at baseline but does make apparently a lot of noises when he has his usual self. Caregiver had gone in to check on him and he was unresponsive. He does have a history of a seizure disorder and they suspected postictal state although no seizure was witnessed. He did have a fall a couple of days ago, has some bruising around his right eye. Patient is not able to provide any history. No reported fevers or illness, he is coughing here. Does not appear to be in any respiratory distress. Blood sugar per EMS was 158. Related Data Home Medications Medication Instructions Recorded Confirmed cholecalciferol (vitamin D3) 25 25 mcg PO DAILY 04/19/22 10/06/23 mcg (1,000 unit) tablet (Vitamin D3) diazepam 5 mg tablet 5 mg PO BID 04/19/22 10/06/23 escitalopram oxalate 10 mg tablet 10 mg PO DAILY 04/19/22 10/06/23 gemfibrozil 600 mg tablet 600 mg PO BID 04/19/22 10/06/23 lamotrigine 200 mg tablet 300 mg PO Q12H 04/19/22 10/06/23 quetiapine 100 mg tablet 100 mg PO TID 04/19/22 10/06/23 risperidone 2 mg tablet 2 mg PO BID@04/19/22 10/06/23 trazodone 50 mg tablet 50 mg PO TID 04/19/22 10/06/23 atorvastatin 20 mg tablet 20 mg PO DAILY 06/28/22 10/06/23 multivitamin (One Daily Essential 1 tab PO DAILY 06/28/22 10/06/23 tablet) risperidone 1 mg tablet 1 mg PO BID@,12/30/22 10/06/23 acetaminophen 500 mg capsule 1,000 mg PO Q6H PRN 01/15/23 10/06/23 acetic acid 2 % ear solution 4 drp otic (ear) TID 01/15/23 10/06/23 clotrimazole 1 % topical cream 1 applic topical BID 01/15/23 10/06/23 escitalopram oxalate 5 mg tablet 5 mg PO DAILY 01/15/23 10/06/23 (Lexapro) loperamide 2 mg capsule (Imodium 2 - 4 mg PO PRN PRN 01/15/23 10/06/23 A-D) risperidone 1 mg tablet 0.5 mg PO QHS 01/15/23 10/06/23 acyclovir 400 mg tablet 400 mg PO 3XD 05/11/23 10/06/23 triamcinolone acetonide 0.1 % 1 applic topical BID-TID 05/11/23 10/06/23 topical cream Previous Rx's Medication Instructions Recorded aspirin 81 mg chewable tablet 81 mg PO DAILY #90 tabs 01/02/23 (Children's Aspirin) white petrolatum (Lip Treatment 1 applic topical 6XD PRN dry skin 01/02/23 topical jelly) #113 grams propranolol 10 mg tablet 10 mg PO TID #90 tabs 01/16/23 sennosides 8.6 mg tablet 25.8 mg (3 x 8.6 mg) PO DAILY #90 01/16/23 tabs [id number] 3.3 4 drp Otic (ear-left) TID 10 days 05/11/23 mg-3 mg-10 mg-0.5 mg/mL ear #10 mL drops,susp (Cortisporin-TC) Allergies Allergy/AdvReac Type Severity Reaction Status Date / Time Cephalosporins Allergy Mild Rash Verified 10/06/23 12:24 Review of Systems Status of ROS: Reports: unobtainable due to medical condition [facility] Medical History Hypotension ?I95.9 - Hypotension, unspecified (ICD-10) MRSA (methicillin resistant Staphylococcus aureus) colonization ?Z22.322 - Carrier or suspected carrier of Methicillin resistant Staphylococcus aureus (ICD-10) OCD (obsessive compulsive disorder) ?F42.9 - Obsessive-compulsive disorder, unspecified (ICD-10) Obesity ?E66.9 - Obesity, unspecified (ICD-10) Chronic constipation ?K59.09 - Other constipation (ICD-10) Hyperlipidemia ?E78.5 - Hyperlipidemia, unspecified (ICD-10) 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 Sees Dr. Conner for primary care. code status is full. He does not smoke or drink alcohol Highest level of school completed/degree received: don't know Smoking Status: Never smoker Do you use any of these nicotine containing products: None Second hand tobacco smoke exposure: No How often do you have a drink containing alcohol: never How often do you have six or more drinks on one occasion: Never AUDIT-C Alcohol total score: 0 Non-prescribed substance use: denies use Caffeine: No service: No Exam Narrative: Exam Narrative: Vital signs as noted above. In general, an alert, nontoxic male. Head: Normocephalic. Some bruising that looks subacute noted around the right eye. Pupils are equal and reactive. Eyes: Pupils are equal reactive. Extraocular movements are full. Conjunctivae are normal. ENT: Mucous membranes are slightly dry. Neck: Supple without lymphadenopathy. Heart: Regular rate and rhythm. No murmur or rub. Lungs: Clear bilaterally. No increased work of breathing, crackles or wheezes. Abdomen: Soft and nontender. No organomegaly. Extremities: Well perfused. No edema. No calf tenderness. Pulses intact. Neurologic: Patient is alert, nonverbal at baseline. Occasional vocalizations. He did follow commands to move his left arm, he with through from light touch of the bottoms of his feet with both legs. I have not yet been able to get him to move his right hand to command, but he did withdraw with attempt to place IV in the right arm. Affect: Flat. Skin: Warm and dry. Well perfused. Const: Vital Signs, click to edit/add: Vital Signs - 24 hr 10/06/23 12:16 10/06/23 12:46 10/06/23 13:37 Temperature 96.3 F L Pulse Rate 98 Pulse Rate [Right Pulse Oximeter] 73 Respiratory Rate 16 Blood Pressure Blood Pressure [Ri ght Upper Arm] 119/79 Pulse Oximetry 95 95 95 Oxygen Delivery Me thod Room Air 10/06/23 13:38 10/06/23 13:39 10/06/23 13:45 Temperature Pulse Rate 80 83 80 Pulse Rate [Right Pulse Oximeter] Respiratory Rate Blood Pressure 110/71 Blood Pressure [Ri ght Upper Arm] Pulse Oximetry 98 97 98 Oxygen Delivery Me thod 10/06/23 14:00 10/06/23 14:02 Temperature Pulse Rate 80 Pulse Rate [Right Pulse Oximeter] Respiratory Rate Blood Pressure 119/86 Blood Pressure [Ri ght Upper Arm] Pulse Oximetry 97 Oxygen Delivery Me thod Documenting provider has reviewed patient's vital signs: yes Course Course ED Course: Patient had a head CT to rule out intracranial hemorrhage with recent fall, by my review this was negative. Final radiology read is negative for acute findings as well. Labs are notable for mildly elevated lactate of 2.1, we were going to recheck this but he has a very difficult draw and they were unable to get blood a 2nd time. Likewise, the CBC was clotted and they were unable to redraw blood. I do think the mildly elevated lactate supports suspicion of seizure. In fact, during his time in the ER he return to baseline. He remains nonverbal but is very vocal, he is moving all extremities without difficulty and according to his caregiver he is at baseline. His electrolytes were normal, LFTs were mildly elevated, AST 38, ALT of 51, pretty nonspecific. Troponin was 0.02. CRP was normal at 0.9. COVID, influenza and RSV were negative. Given that he is at his baseline with an unrevealing workup here, and with an episode that is strong suggestive of unwitnessed seizure, I think it is reasonable to let him go home. He takes Lamictal, he has not seen neurology in quite some time so I do think it would be reasonable to follow-up with them. Caregiver says that he did have a seizure not that long ago as well, and prior to that it had been quite some time so Neurology had discharged him from their practice. For recurrent seizures or altered mentation, return at any time to the emergency department. Vital Signs Vital signs: Initial Vital Signs Temperature 96.3 F L 10/06/23 12:16 Temperature Source Temporal Artery Scan 10/06/23 12:16 Pulse Rate 73 10/06/23 12:16 Respiratory Rate 16 10/06/23 12:16 Blood Pressure 119/79 10/06/23 12:16 Blood Pressure Mean 92 10/06/23 12:16 Blood Pressure Position Sitting 10/06/23 12:16 Pulse Oximetry 95 10/06/23 12:16 Oxygen Delivery Method Room Air 10/06/23 12:16 Vital Signs Temperature 96.3 F L 10/06/23 12:16 Pulse Rate 73 10/06/23 12:16 Respiratory Rate 16 10/06/23 12:16 Blood Pressure 119/79 10/06/23 12:16 Pulse Oximetry 95 10/06/23 12:16 Oxygen Delivery Method Room Air 10/06/23 12:16 Temperature 96.3 F L 10/06/23 12:16 Pulse Rate 80 10/06/23 14:00 Respiratory Rate 16 10/06/23 12:16 Blood Pressure 119/86 10/06/23 14:02 Pulse Oximetry 97 10/06/23 14:00 Oxygen Delivery Method Room Air 10/06/23 12:16 Medications Administered Medications: Discontinued Medications Generic Name Dose Route Start Last Admin Trade Name Freq PRN Reason Stop Dose Admin Sodium Chloride 1,000 mls @ 1,000 mls/hr 10/06/23 12:30 10/06/23 14:13 0.9 % Sodium Chloride 1000 Ml IV 10/06/23 13:29 Infused .Q1H CARL Infusion Medical Decision Making Lab Data Labs: Lab Results 10/06/23 10/06/23 10/06/23 Range/Units 12:30 13:15 14:28 WBC Cancelled Corrected WBC Cancelled RBC Cancelled Hgb Cancelled Hct Cancelled MCV Cancelled MCH Cancelled MCHC Cancelled RDW Coeff of Dileep Cancelled Plt Count Cancelled Neut % (Auto) Cancelled Lymph % (Auto) Cancelled Mineral % (Auto) Cancelled Eos % (Auto) Cancelled Baso % (Auto) Cancelled Neut # (Auto) Cancelled Lymph # (Auto) Cancelled Mineral # (Auto) Cancelled Eos # (Auto) Cancelled Baso # (Auto) Cancelled Abs Immat Gran (auto) Cancelled Imm/Tot Granulo (auto) Cancelled Sodium 141 (135-149) mmol/L Potassium 4.6 (3.6-5.1) mmol/L Chloride 101 (96-114) mmol/L Carbon Dioxide 30 (20-32) mmol/L Anion Gap 10 (7-15) mEq/L BUN 15 (5-24) mg/dL Creatinine 0.8 (0.5-1.5) mg/dL Estimated Creat Clear 106.33 Estimated GFR 112 ml/min Glucose 93 (60-115) mg/dL Lactate 2.1 H 2.5 H (0.5-1.9) mmol/L Calcium 9.4 (8.4-10.6) mg/dL Total Bilirubin 0.5 (0.1-1.5) mg/dL Direct Bilirubin 0.1 (0.0-0.5) mg/dL AST 38 H (12-35) U/L ALT 51 H (4-50) U/L Alkaline Phosphatase 164 H (40-150) U/L Troponin I 0.02 (0.01-0.04) ng/mL C-Reactive Protein 0.9 (0.5-1.0) mg/dL Total Protein 8.0 (6.0-8.3) g/dL Albumin 4.8 (3.3-5.0) g/dL SARS-CoV-2 (PCR) Negative SARS-CoV-2 (Negative) Influenza Type A (PCR) Negative PCR FLU A (Negative) Influenza Type B (PCR) Negative PCR FLU B (Negative) RSV (PCR) Negative PCR RSV (Negative) Discharge Plan Discharge Clinical Impression: Postictal state Patient Disposition: Home w/ Parent or Adult Condition: Improved Instructions: Epilepsy in Older Adults (ED) Additional Instructions: Today's events suggest he may have had a seizure, CT scan and labs are overall reassuring. I would recommend neuro follow-up since he has not seen them for a while now. Prescriptions: No Action lamotrigine 200 mg tablet 300 mg PO Q12H trazodone 50 mg tablet 50 mg PO TID quetiapine 100 mg tablet 100 mg PO TID risperidone 2 mg tablet 2 mg PO BID@14,21 gemfibrozil 600 mg tablet 600 mg PO BID diazepam 5 mg tablet 5 mg PO BID escitalopram oxalate 10 mg tablet 10 mg PO DAILY cholecalciferol (vitamin D3) [Vitamin D3] 25 mcg (1,000 unit) tablet 25 mcg PO DAILY acetaminophen 500 mg capsule 1,000 mg PO Q6H PRN acetic acid 2 % solution 4 drp otic (ear) TID Rx Instructions: 4 drops both ears TID clotrimazole 1 % cream 1 applic topical BID escitalopram oxalate [Lexapro] 5 mg tablet 5 mg PO DAILY loperamide [Imodium A-D] 2 mg capsule 2 - 4 mg PO PRN PRN risperidone 1 mg tablet 0.5 mg PO QHS Patient Comments: TAKES ALONG WITH 3 MG HS DOSE propranolol 10 mg tablet 10 mg PO TID Qty: 90 2RF sennosides 8.6 mg tablet 25.8 mg PO DAILY Qty: 90 1RF atorvastatin 20 mg tablet 20 mg PO DAILY multivitamin [One Daily Essential] Tablet 1 tab PO DAILY risperidone 1 mg tablet 1 mg PO BID@14,21 white petrolatum [Lip Treatment] Gel 1 applic topical 6XD PRN (Reason: dry skin) Qty: 113 0RF aspirin [Children's Aspirin] 81 mg Tablet,Chewable 81 mg PO DAILY Qty: 90 0RF acyclovir 400 mg tablet 400 mg PO 3XD triamcinolone acetonide 0.1 % cream 1 applic topical BID-TID Cortisporin-TC 3.3-3-10-0.5 mg/mL drops,suspension 4 drp Otic (ear-left) TID 10 Days Qty: 10 0RF Follow Up/Referrals: Rosalio Conner MD [Primary Care Provider] - Stand Alone Forms: [facility] Info Instructions
[2023-10-06 12:37] LABS: Lactate Sepsis w/Reflex* 2.1 mmol/L (0.5-1.9)
[2023-10-06 13:00] LABS: Chloride* 101 mmol/L (96-114); Potassium* 4.6 mmol/L (3.6-5.1); Sodium* 141 mmol/L (135-149)
[2023-10-06 13:01] LABS: Albumin* 4.8 g/dL (3.3-5.0)
[2023-10-06 13:03] LABS: Anion Gap 10 mEq/L (7-15); Blood Urea Nitrogen* 15 mg/dL (5-24); Carbon Dioxide* 30 mmol/L (20-32); Creatinine* 0.8 mg/dL (0.5-1.5); Est. Creatinine Clearance* 106.33; Estimated Glomerular Filt Rate 112 ml/min
[2023-10-06 13:04] LABS: Alkaline Phosphatase* 164 U/L (40-150); Aspartate Amino Transferase* 38 U/L (12-35); Bilirubin Direct* 0.1 mg/dL (0.0-0.5); Bilirubin Total* 0.5 mg/dL (0.1-1.5); Calcium* 9.4 mg/dL (8.4-10.6); Glucose* 93 mg/dL (60-115)
[2023-10-06 13:05] LABS: Alanine Aminotransferase* 51 U/L (4-50)
[2023-10-06 13:06] LABS: C Reactive Protein* 0.9 mg/dL (0.5-1.0)
--- OUTSIDE RECORDS SUMMARY | 2023-10-06 13:24 | XMS_ITS | Patient Health Record ---
Author Name Unknown Organization [facility] [place] Address [address] [place] [address] Care Team Providers Care Md Pediatric Allergist Name Role Phone Lalit Dubon MD [facility] Unavailable [phone] ALLERGIES Allergen (clinical drug ingredient) Drug/Non Drug Allergy documented on EMR Reaction Allergy Type Onset Date Status Keflex Unknown Drug Allergy Active REASON FOR REFERRAL No Information MEDICATIONS Medication SIG (Take, Route, Frequency, Duration) Notes Start Date End Date Status Vitamin D3 25 MCG (1000 UT) TAKE 1 TABLET BY MOUTH EVERY MORNING for 28 Active Acetaminophen 500 MG 2 tablets Orally every as needed (prn) Active traZODone HCl 100mg 1 tablet qam, 2 tablets qhs Orally as directed Active Risperidone 1 MG 1.5 tabs at bedtime Orally Active Senna 8.6 MG 2 tablets Orally twice a day (bid) Active Multi-Vitamin as directed Orally Active RisperDAL 2 MG 1 tablet Orally three times a day (tid) Active lamoTRIgine 100 MG 3 tabs in AM and 3.5 tabs (350mg) in PM Orally as directed for 30 days Active fluvoxaMINE Maleate 100 mg 1 tablet Orally twice a day (bid) Active Melatonin 3 MG 1 tablet at bedtime as needed with food Orally Once a day Active clonazePAM 0.5 MG 0.5 tablets Orally three times a day (tid) per psych for OCD Active Gemfibrozil 600 MG 1 tablet Orally Twice a day Active SOCIAL HISTORY Sex Assigned At : Social History Observation Description Sex Assigned At Unknown Tobacco Use Question Answer Notes Are you a: nonsmoker Additional Findings: Tobacco Non-User exposed to secondhand smoke PROBLEMS Problem Type ICD Code Onset Dates Problem Status W/U Status Risk SNOMED Code Notes Problem Severe intellectual disabilities (F72) Active confirmed Severe mental retardation (Intelligence Quotient 20-34) (72471591) Problem Generalized idiopathic epilepsy and epileptic syndromes, intractable, 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) Active confirmed Problem Other specified disorders of bone density and structure, unspecified site (M85.80) Active confirmed Disorder of bone (51575691) 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) Active confirmed Long-term current use of drug therapy (375543646) Encounters Encounter Location Date Provider Diagnosis [facility] [address] [place] [address] 04/05/2023 [facility] [address] [place] [address] 04/06/2023 [facility] Generalized idiopathic epilepsy and epileptic syndromes, intractable, 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 ; 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 Z79.899 and Other specified disorders of bone density and structure, unspecified site M85.80 [facility] [address] [place] [address] 12/29/2022 [facility] [address] [place] [address] 01/03/2023 [facility] [address] [place] [address] 01/07/2023 [facility] [address] [place] [address] 04/06/2023 [facility] ASSESSMENTS Encounter Date Diagnosis Assessment Notes Treatment Notes Treatment Clinical Notes 04/06/2023 Generalized idiopathic epilepsy and epileptic syndromes, intractable, without status epilepticus (ICD-10 - G40.319) Epilepsy has previously been formulated to be consistent with generalized onset versus nonlocalized focal onset with generalized convulsions and or episodes of behavioral arrest. Epilepsy has been pharmacotherapy responsive, last generalized convulsion was in 1982 at about 2 years of age and last episode of behavioral arrest was in 2012 at about 32 years of age. He has been maintained on monotherapy of lamotrigine, which he has tolerated well. There have not been any events or adverse effects of the medications. Drug levels have been stable. I have advised to continue lamotrigine unchanged at the current dose. Given his long-term stability of seizure control, stable dose of lamotrigine, with stable level, I am comfortable discharging his care back to his primary care physician. I would recommend that he be continued on the same dose of lamotrigine unchanged and unless there is a significant relevant medical change. Follow-up lamotrigine levels may only be performed on an as needed based on clinical assessment. Regular/yearly surveillance of lamotrigine level is not necessarily required. If there is any changes in seizure, concerns regarding antiseizure medications etc., I will be happy to see the patient back in clinic. Today I provided refill of lamotrigine for 1 year and renewed the current seizure rescue plan [which has not been required in the last 10 years]. Future refills and rescue plan renewals can come from the primary care physician. A copy of the note will also be sent to the primary care physician. 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 I note that the patient is currently on lamotrigine, a medication less likely to result in osteopenia, but he has been on phenytoin in the past. In addition, he also has had traumatic fracture of the ankle in 2020. He is now on vitamin D supplementation. I defer the further evaluation and management of bone health and follow up, including DEXA scan, to the primary care physician. I will send a copy of this note to them 04/06/2023 Other specified disorders of bone density and structure, unspecified site (ICD-10 - M85.80) 04/06/2023 Other Services today were provided via telemedicine. During the visit, the patient, Saulo Rinaldi, was at home in [place], [place], and the provider, Dr. Matt Coello, was located in [place], [place]. The televisit started at 0931 AM and ended at 0935 AM, for a duration of 4 minutes. 04/06/2023 Other VISIT SUMMARY: 1. MEDS: No changes to your anti-seizure medications today. Continue lamotrigine 300mg in the morning and 350mg at bedtime. REFILLS: We will authorize refills at your pharmacy. Let the pharmacy know when you need refills, and do not wait until you are almost out of medication, as it may take 7-10 days to process your request. 2. LABS/DIAGNOSTIC IMAGING: No further testing is indicated today. 3. FOLLOW-UP: Since you have not had any seizures in many years and have remained stable at your current dose of lamotrigine, you may follow-up annually with your primary care provider. A copy of today's note and this recommendation will be sent to Dr. Dubon. We will authorize refills for one year. Future refills will need to be authorized by Dr. Dubon. In the meantime, please contact us with any further updates, questions, or concerns. Thank you for choosing the [facility]! PLAN OF TREATMENT Pending Test Test Name Order Date Lamotrigine (Lamictal), Serum 11/11/2010 COMPREHENSIVE METABOLIC PANEL 11/22/2018 COMPREHENSIVE METABOLIC PANEL 08/27/2020 CBC (INCLUDES DIFF/PLT) 08/27/2020 CBC (INCLUDES DIFF/PLT) 11/22/2018 LAMOTRIGINE 11/22/2018 LAMOTRIGINE 08/27/2020 Insurance Providers Payer Name Payer Address Payer Phone Subscriber Number Group Number Insured Name Patient Relationship to Insured Coverage Start Date Coverage End Date MEDICARE [place] [address] [facility] [place] [id number] Saulo Rinaldi Self - patient is the insured [place] [address] [address] [place] [address] [id number] Saulo Rinaldi Self - patient is the insured MEDICAL (GENERAL) HISTORY Medical History History ICD Code Severe mental retardation Chronic behavior problem (aggression) Epilepsy Surgical History Surgery Date(Month/Year) repaired fractured tibia, sprained right foot 05/20/2019 Hospitalization History Reason Date(Month/Year)
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
[2023-10-06] MEDS: 0.9 % SODIUM CHLORIDE 1000 ml 1,000 ML IV (13:27)
[2023-10-06 13:30] LABS: PCR FLU A Negative PCR FLU A (Negative); PCR FLU B Negative PCR FLU B (Negative); PCR RSV Negative PCR RSV (Negative); SARS PCR* Negative SARS-CoV-2 (Negative)
[2023-10-06 13:42] LABS: Troponin I* 0.02 ng/mL (0.01-0.04)
[2023-10-06 14:42] LABS: Lactate Sepsis 2 Hour 2.5 mmol/L (0.5-1.9)
== END 2023-10-06 15:26 | disposition home or self-care (01) ==
PROVIDERS: Emergency Provider Emergency Medicine; PCP Family Medicine
DX: G40.419 Other generalized epilepsy and epileptic syndromes, intractable, without status epilepticus (principal)
CPT/HCPCS: 36415; 70450; 80048; 80076; 81001; 83605; 84484; 85025; 86140; 87631; 94761; 99284; J7030

== ENCOUNTER 2023-11-21 10:07 | Outpatient (CLI) | payer MEDICARE, MEDICAID, SELFPAY | END 2023-11-21 10:08 | disposition home or self-care (01) | LOC: AMB 11-23 12:26 | PROVIDERS: PCP Family Medicine; Visit Provider Student in an Organized Health Care Education/Training Program | DX: I95.9 Hypotension, unspecified (principal) | CPT/HCPCS: A0425; A0429 ==

== ENCOUNTER 2023-11-21 10:38 | Emergency (ER) | payer MEDICARE, MEDICAID, SELFPAY ==
[2023-11-21 10:43] VITALS: BP 97/69; PULSE 65; O2SAT 96
[2023-11-21 10:44] VITALS: BP 101/62; PULSE 62; PULSE 66; RESP 16; TEMP 36.3; O2SAT 97; BMI 24.2
[2023-11-21 10:45] VITALS: PULSE 63; O2SAT 99
--- NOTE | 2023-11-21 10:46 | ED.GENADULT ---
HPI - General Adult General Time Seen by Provider: 10:46 Date Seen: 11/21/23 Chief complaint: Hypotension Stated complaint: low BP Time Seen by Provider: 11/21/23 10:45 Source: patient, EMS, RN notes reviewed and old records reviewed Mode of arrival: EMS Limitations: altered mental status History of Present Illness HPI narrative: 43-year-old male who comes in today with low blood pressure. Patient was noted by staff at [facility] to have low blood pressure this morning and EMS was called. Otherwise by report patient is his normal self. Related Data Home Medications Medication Instructions Recorded Confirmed cholecalciferol (vitamin D3) 25 25 mcg PO DAILY 04/19/22 11/21/23 mcg (1,000 unit) tablet (Vitamin D3) diazepam 5 mg tablet 2 mg PO DAILY 04/19/22 11/21/23 escitalopram oxalate 10 mg tablet 10 mg PO DAILY 04/19/22 11/21/23 gemfibrozil 600 mg tablet 600 mg PO BID 04/19/22 10/06/23 lamotrigine 200 mg tablet 300 mg PO Q12H 04/19/22 11/21/23 quetiapine 100 mg tablet 100 mg PO TID 04/19/22 11/21/23 trazodone 50 mg tablet 50 mg PO TID 04/19/22 11/21/23 atorvastatin 20 mg tablet 20 mg PO DAILY 06/28/22 11/21/23 multivitamin (One Daily Essential 1 tab PO DAILY 06/28/22 11/21/23 tablet) risperidone 1 mg tablet 1 mg PO .5X/day 12/30/22 11/21/23 acetaminophen 500 mg capsule 1,000 mg PO Q6H PRN 01/15/23 11/21/23 acetic acid 2 % ear solution 4 drp otic (ear) TID 01/15/23 11/21/23 clotrimazole 1 % topical cream 1 applic topical BID 01/15/23 11/21/23 loperamide 2 mg capsule (Imodium 2 - 4 mg PO PRN PRN 01/15/23 11/21/23 A-D) acyclovir 400 mg tablet 400 mg PO 3XD 05/11/23 11/21/23 triamcinolone acetonide 0.1 % 1 applic topical BID-TID 08/30/23 03/11/24 topical cream lamotrigine 25 mg tablet 50 mg PO QHS 11/21/23 11/21/23 Previous Rx's Medication Instructions Recorded aspirin 81 mg chewable tablet 81 mg PO DAILY #90 tabs 01/02/23 (Children's Aspirin) white petrolatum (Lip Treatment 1 applic topical 6XD PRN dry skin 01/02/23 topical jelly) #113 grams propranolol 10 mg tablet 10 mg PO TID #90 tabs 01/16/23 sennosides 8.6 mg tablet 25.8 mg (3 x 8.6 mg) PO DAILY #90 01/16/23 tabs [id number] 3.3 4 drp Otic (ear-left) TID 10 days 05/11/23 mg-3 mg-10 mg-0.5 mg/mL ear #10 mL drops,susp (Cortisporin-TC) Allergies Allergy/AdvReac Type Severity Reaction Status Date / Time Cephalosporins Allergy Mild Rash Verified 11/21/23 10:[address] [facility] Medical History Hypotension ?I95.9 - Hypotension, unspecified (ICD-10) MRSA (methicillin resistant Staphylococcus aureus) colonization ?Z22.322 - Carrier or suspected carrier of Methicillin resistant Staphylococcus aureus (ICD-10) OCD (obsessive compulsive disorder) ?F42.9 - Obsessive-compulsive disorder, unspecified (ICD-10) Obesity ?E66.9 - Obesity, unspecified (ICD-10) Chronic constipation ?K59.09 - Other constipation (ICD-10) Hyperlipidemia ?E78.5 - Hyperlipidemia, unspecified (ICD-10) 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 Sees Dr. Conner for primary care. code status is full. He does not smoke or drink alcohol Highest level of school completed/degree received: don't know Smoking Status: Never smoker Do you use any of these nicotine containing products: None Second hand tobacco smoke exposure: No How often do you have a drink containing alcohol: never How often do you have six or more drinks on one occasion: Never AUDIT-C Alcohol total score: 0 Non-prescribed substance use: denies use Caffeine: No service: No Exam Narrative: Exam Narrative: General: Well-developed and well-nourished, no acute distress Head: Atraumatic and normocephalic Eyes: Pupils are equal reactive, extraocular motions intact, conjunctiva clear ENT: External nose and ears are normal, posterior pharynx without erythema or exudate Neck: No midline cervical tenderness, full spontaneous range of motion the neck, trachea midline, no adenopathy Heart: Regular rate and rhythm no murmurs or thrills Lungs: Clear to auscultation bilaterally without wheezes or crackles Abdomen: Soft, nontender, nondistended with active bowel sounds Musculoskeletal: No tenderness, deformity, or edema Neurologic: Awake, alert, interactive, no gross focal neurologic deficits, cranial nerves intact as tested Psych: Baseline Skin: No rashes Const: Vital Signs, click to edit/add: Vital Signs - 24 hr 11/21/23 10:43 11/21/23 10:44 11/21/23 10:44 Temperature 97.4 F L Pulse Rate 65 62 Pulse Rate [Pulse Oximeter] 66 Respiratory Rate 16 Blood Pressure 97/69 Blood Pressure [Le ft Upper Arm] 101/62 Pulse Oximetry 96 97 97 Oxygen Delivery Me thod Room Air 11/21/23 10:45 11/21/23 10:52 11/21/23 12:06 Temperature Pulse Rate 63 62 Pulse Rate [Pulse Oximeter] 60 Respiratory Rate 16 14 Blood Pressure 97/65 Blood Pressure [Le ft Upper Arm] 105/75 Pulse Oximetry 99 96 98 Oxygen Delivery Me thod Room Air Course Course ED Course: Patient seen examined, prior records are reviewed. Reviewed prior emergency department visit from December 2022 patient was admitted to the hospital with altered mental status, found to have NSTEMI from type 2 infarction, also was septic at that time secondary to community-acquired pneumonia. Also presented to the emergency department on 01/15/2023 at that time was found to be hypotensive, he was initially seen at that time for an oral laceration, due to hypotension patient was watched in the emergency department overnight which improved after fluids. On initial exam today, blood pressure is normal for patient, 90s over 60s. He is awake alert, interactive, has a birthday card that he is showing staff. Seems to be is baseline and much improved from when I saw him last year with sepsis. Labs ordered and small fluid bolus although patient appears his baseline both in mentation and in vital signs. Reevaluation(s) Time of Reevaluation #1: 14:08 Reevaluation #1: Labs ordered and independently interpreted by me with normal white blood cell count, basic panel with elevated potassium but this likely is factitious given difficulty and dried blood, no evidence for hyperkalemia on EKG and no other lab abnormalities, patient has no underlying cause for hyperkalemia. Plan for discharge with follow-up with primary care. Vital Signs Vital signs: Initial Vital Signs Pulse Rate 65 11/21/23 10:43 Blood Pressure 97/69 11/21/23 10:43 Blood Pressure Mean 78 11/21/23 10:43 Pulse Oximetry 96 11/21/23 10:43 Vital Signs Pulse Rate 65 11/21/23 10:43 Blood Pressure 97/69 11/21/23 10:43 Pulse Oximetry 96 11/21/23 10:43 Temperature 97.4 F L 11/21/23 10:44 Pulse Rate 60 11/21/23 12:06 Respiratory Rate 14 11/21/23 12:06 Blood Pressure 105/75 11/21/23 12:06 Pulse Oximetry 98 11/21/23 12:06 Oxygen Delivery Method Room Air 11/21/23 12:06 Medications Administered Medications: Discontinued Medications Generic Name Dose Route Start Last Admin Trade Name Freq PRN Reason Stop Dose Admin Sodium Chloride 500 mls @ 500 mls/hr 11/21/23 10:58 11/21/23 13:48 0.9 % Sodium Chloride 500 Ml IV 11/21/23 11:57 Infused .Q1H ONE Infusion Medical Decision Making Lab Data Labs: Lab Results 11/21/23 11/21/23 Range/Units 11:56 13:30 WBC 5.98 (4.50-11.00) K/uL RBC 4.78 (4.30-5.90) m/uL Hgb 14.0 (13.5-17.5) gm/dL Hct 42.4 (37.0-53.0) % MCV 89 (80-100) fL MCH 29 (26-34) pg MCHC 33 (32-36) gm/dL RDW Coeff of Dileep 13.4 (11.5-15.5) % Plt Count 184 (140-440) K/uL Neut % (Auto) 43.4 (42.0-72.0) % Lymph % (Auto) 45.0 H (20-44) % [place] % (Auto) 10.5 (0.0-11.0) % Eos % (Auto) 0.7 (0.0-7.0) % Baso % (Auto) 0.2 (0.0-3.0) % Neut # (Auto) 2.60 (1.7-7.0) K/uL Lymph # (Auto) 2.70 (0.90-2.90) K/uL [place] # (Auto) 0.60 (0.00-0.90) K/UL Eos # (Auto) 0.04 (0.00-0.50) K/uL Baso # (Auto) 0.01 (0.00-0.30) K/uL Abs Immat Gran (auto) 0.01 (0.00-0.30) K/uL Imm/Tot Granulo (auto) 0.2 % Sodium 140 (135-149) mmol/L Potassium 5.9 H (3.6-5.1) mmol/L Chloride 114 (96-114) mmol/L Carbon Dioxide 21 (20-32) mmol/L Anion Gap 5 L (7-15) mEq/L BUN 18 (5-24) mg/dL Creatinine 0.7 (0.5-1.5) mg/dL Estimated Creat Clear 120.26 Estimated GFR 116 ml/min Glucose 86 (60-115) mg/dL Calcium 9.3 (8.4-10.6) mg/dL Discharge Plan Discharge Clinical Impression: Hypotension Patient Disposition: Home w/ Parent or Adult Condition: Stable Instructions: How to Take a Blood Pressure Reading (ED), Hypotension (DC) Additional Instructions: Follow-up with primary care in 1 week for recheck Activity Level: No Restrictions Prescriptions: No Action lamotrigine 200 mg tablet 300 mg PO Q12H trazodone 50 mg tablet 50 mg PO TID quetiapine 100 mg tablet 100 mg PO TID gemfibrozil 600 mg tablet 600 mg PO BID diazepam 5 mg tablet 2 mg PO DAILY escitalopram oxalate 10 mg tablet 10 mg PO DAILY cholecalciferol (vitamin D3) [Vitamin D3] 25 mcg (1,000 unit) tablet 25 mcg PO DAILY acetaminophen 500 mg capsule 1,000 mg PO Q6H PRN acetic acid 2 % solution 4 drp otic (ear) TID Rx Instructions: 4 drops both ears TID clotrimazole 1 % cream 1 applic topical BID loperamide [Imodium A-D] 2 mg capsule 2 - 4 mg PO PRN PRN propranolol 10 mg tablet 10 mg PO TID Qty: 90 2RF sennosides 8.6 mg tablet 25.8 mg PO DAILY Qty: 90 1RF atorvastatin 20 mg tablet 20 mg PO DAILY multivitamin [One Daily Essential] Tablet 1 tab PO DAILY risperidone 1 mg tablet 1 mg PO .5X/day white petrolatum [Lip Treatment] Gel 1 applic topical 6XD PRN (Reason: dry skin) Qty: 113 0RF aspirin [Children's Aspirin] 81 mg Tablet,Chewable 81 mg PO DAILY Qty: 90 0RF acyclovir 400 mg tablet 400 mg PO 3XD triamcinolone acetonide 0.1 % cream 1 applic topical BID-TID Cortisporin-TC 3.3-3-10-0.5 mg/mL drops,suspension 4 drp Otic (ear-left) TID 10 Days Qty: 10 0RF lamotrigine 25 mg tablet 50 mg PO QHS Follow Up/Referrals: Rosalio Conner MD [Primary Care Provider] - [facility] Inst[facility]
[2023-11-21 10:52] VITALS: BP 97/65; PULSE 62; RESP 16; O2SAT 96
--- NOTE | 2023-11-21 10:58 | XR_ITS ---
Patient: KINGSLEY KERNS Facility:?[facility] Patient ID:?[id number] Site Patient ID:?[id number]. Site :?[id number] Study:?XRay-Chest PORTABLE-11/21/2023 11:11:43 AM Ordering Physician:KYLE Final Report: INDICATION: Hypotension and a history of pneumonia TECHNIQUE: 1 view chest radiograph COMPARISON: 05/11/2023 FINDINGS: Devices: None. Lung volumes are very low. No focal or diffuse opacities. No pleural effusion. No pneumothorax. Heart size is normal accounting for low volumes and technique. IMPRESSION: Very low lung volumes. Dictated by July Simon MD @ 11/21/2023 11:19:37 AM Signed by:?July Simon MD @11/21/2023 11:19:37 AM (Electronic Signature)
[2023-11-21] MEDS: 0.9 % SODIUM CHLORIDE 500 ML 500 ML IV (12:05)
[2023-11-21 12:06] VITALS: BP 105/75; PULSE 60; RESP 14; O2SAT 98
[2023-11-21 12:15] LABS: Basophils Absolute Auto 0.01 K/uL (0.00-0.30); Basophils Percent Auto 0.2 % (0.0-3.0); Eosinophils Absolute Auto 0.04 K/uL (0.00-0.50); Eosinophils Percent Auto 0.7 % (0.0-7.0); Hematocrit 42.4 % (37.0-53.0); Immature Granulocytes Abs Auto 0.01 K/uL (0.00-0.30); Immature Granulocytes Pct Auto 0.2 %; Mean Corpuscular HGB Conc 33 gm/dL (32-36); Mean Corpuscular Hemoglobin 29 pg (26-34); Mean Corpuscular Volume 89 fL (80-100); Monocytes Percent Auto 10.5 % (0.0-11.0); Neutrophils Percent Auto 43.4 % (42.0-72.0); Platelet Count* 184 K/uL (140-440); RDW Coefficient of Variation % 13.4 % (11.5-15.5); Red Blood Count 4.78 m/uL (4.30-5.90); White Blood Count* 5.98 K/uL (4.50-11.00)
[2023-11-21 12:16] LABS: Slide Review Reflex No
[2023-11-21 13:50] LABS: Chloride* 114 mmol/L (96-114); Sodium* 140 mmol/L (135-149)
[2023-11-21 13:53] LABS: Anion Gap 5 mEq/L (7-15); Carbon Dioxide* 21 mmol/L (20-32); Creatinine* 0.7 mg/dL (0.5-1.5); Est. Creatinine Clearance* 120.26; Estimated Glomerular Filt Rate 116 ml/min
[2023-11-21 13:54] LABS: Blood Urea Nitrogen* 18 mg/dL (5-24); Calcium* 9.3 mg/dL (8.4-10.6); Glucose* 86 mg/dL (60-115)
[2023-11-21 13:56] LABS: Potassium* 5.9 mmol/L (3.6-5.1)
--- NOTE | 2023-11-21 14:10 | ED.NURSE ---
Per [facility] staff, they called patients mother, Alta to let her know patient was here.
== END 2023-11-21 14:18 | disposition home or self-care (01) ==
PROVIDERS: Emergency Provider Family Medicine; PCP Family Medicine
DX: I95.9 Hypotension, unspecified (principal)
CPT/HCPCS: 36415; 71045; 80048; 85025; 99283; 99284; J7030

== ENCOUNTER 2024-08-29 10:21 | Outpatient (CLI) | payer MEDICARE, MEDICAID, SELFPAY | END 2024-08-29 10:22 | disposition home or self-care (01) | LOC: AMB 09-04 13:47 | PROVIDERS: PCP Family Medicine; Visit Provider Student in an Organized Health Care Education/Training Program | DX: R56.9 Unspecified convulsions (principal); R41.82 Altered mental status, unspecified | CPT/HCPCS: A0425; A0427 ==

== ENCOUNTER 2024-08-29 10:49 | Emergency (ER) | payer MEDICARE, MEDICAID, SELFPAY ==
[2024-08-29] VITALS (10 sets, daily range): BP systolic 119–128; BP diastolic 79–85; PULSE 65–83; RESP 12–16; TEMP 35.8; O2SAT 96–100
--- NOTE | 2024-08-29 11:16 | ED.GENADULT ---
HPI - General Adult General Time Seen by Provider: 11:16 Date Seen: 08/29/24 Chief complaint: Seizure Stated complaint: seizure Time Seen by Provider: 08/29/24 10:56 Source: patient, RN notes reviewed, old records reviewed and other ([facility] staff) Mode of arrival: ambulatory Limitations: no limitations History of Present Illness HPI narrative: 43-year-old male who comes in today with altered mental status. Patient noted to be sleepy are in the normal this morning, decreased appetite, staff tried to get him up to stand and he was unable to support his weight, eased to the ground with no head injury. Staff reports patient was ?unresponsive? at that time, blood pressure with systolic 99. No noted vomiting, diarrhea, cough, fever. No new medications. Baseline patient is ambulatory and talkative. Related Data Home Medications ?Medication ?Instructions ?Recorded ?Confirmed cholecalciferol (vitamin D3) 25 25 mcg PO DAILY 04/19/22 07/08/24 mcg (1,000 unit) tablet (Vitamin D3) diazepam 5 mg tablet 2 mg PO DAILY 04/19/22 07/08/24 escitalopram oxalate 10 mg tablet 10 mg PO DAILY 04/19/22 07/08/24 gemfibrozil 600 mg tablet 600 mg PO BID 04/19/22 07/08/24 quetiapine 100 mg tablet 100 mg PO TID 04/19/22 07/08/24 trazodone 50 mg tablet 50 mg PO TID 04/19/22 07/08/24 atorvastatin 20 mg tablet 20 mg PO DAILY 06/28/22 07/08/24 multivitamin (One Daily Essential 1 tab PO DAILY 06/28/22 07/08/24 tablet) acetaminophen 500 mg capsule 1,000 mg PO Q6H PRN 01/15/23 07/08/24 acetic acid 2 % ear solution 4 drp otic (ear) TID 01/15/23 07/08/24 clotrimazole 1 % topical cream 1 applic topical BID 01/15/23 07/08/24 loperamide 2 mg capsule (Imodium 2 - 4 mg PO PRN PRN 01/15/23 07/08/24 A-D) triamcinolone acetonide 0.1 % 1 applic topical BID-TID 05/11/23 07/08/24 topical cream acyclovir 400 mg tablet 400 mg PO 3XD PRN 07/08/24 07/08/24 lamotrigine 200 mg tablet 200 mg PO Q12H 07/08/24 07/08/24 lamotrigine 25 mg tablet 25 mg PO QHS 07/08/24 07/08/24 risperidone 1 mg tablet 2 mg PO .5X/day 07/08/24 07/08/24 Previous Rx's ?Medication ?Instructions ?Recorded aspirin 81 mg chewable tablet 81 mg PO DAILY #90 tabs 01/02/23 (Children's Aspirin) white petrolatum (Lip Treatment 1 applic topical 6XD PRN dry skin 01/02/23 topical jelly) #113 grams propranolol 10 mg tablet 10 mg PO TID #90 tabs 01/16/23 sennosides 8.6 mg tablet 25.8 mg (3 x 8.6 mg) PO DAILY #90 01/16/23 tabs hydrocortisone 1 % topical cream 1 applic topical BID PRN skin 07/08/24 (Anti-Itch (hydrocortisone)) irritation #28.35 grams ketotifen fumarate 0.025 % (0.035 1 drp ophthalmic (eye) BID PRN 07/08/24 %) eye drops (Zaditor) allergy symptoms #5 mL Allergies Allergy/AdvReac Type Severity Reaction Status Date / Time Cephalosporins Allergy Mild Rash Verified 07/08/24 13:30 PFSH [facility] Medical History Hypotension ?I95.9 - Hypotension, unspecified (ICD-10) MRSA (methicillin resistant Staphylococcus aureus) colonization ?Z22.322 - Carrier or suspected carrier of Methicillin resistant Staphylococcus aureus (ICD-10) OCD (obsessive compulsive disorder) ?F42.9 - Obsessive-compulsive disorder, unspecified (ICD-10) Obesity ?E66.9 - Obesity, unspecified (ICD-10) Chronic constipation ?K59.09 - Other constipation (ICD-10) Hyperlipidemia ?E78.5 - Hyperlipidemia, unspecified (ICD-10) 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 Sees Dr. Conner for primary care. code status is full. He does not smoke or drink alcohol Highest level of school completed/degree received: don't know Smoking Status: Never smoker Do you use any of these nicotine containing products: None Second hand tobacco smoke exposure: No How often do you have a drink containing alcohol: never How often do you have six or more drinks on one occasion: Never AUDIT-C Alcohol total score: 0 Non-prescribed substance use: denies use Caffeine: No service: No Exam Narrative: Exam Narrative: General: Well-developed and well-nourished, no acute distress Head: Atraumatic and normocephalic Eyes: Pupils are equal reactive, extraocular motions intact, conjunctiva clear ENT: External nose and ears are normal, posterior pharynx without erythema or exudate Neck: No midline cervical tenderness, full spontaneous range of motion the neck, trachea midline, no adenopathy Heart: Regular rate and rhythm no murmurs or thrills Lungs: Clear to auscultation bilaterally without wheezes or crackles Abdomen: Soft, nontender, nondistended with active bowel sounds Musculoskeletal: No tenderness, deformity, or edema Neurologic: Rouses to voice and moans, withdraws equally to all 4 extremities Psych: Mood and affect are appropriate Skin: No rashes Const: Vital Signs, click to edit/add: Vital Signs - 24 hr 08/29/24 10:59 08/29/24 11:06 08/29/24 11:07 Temperature 96.5 F L Pulse Rate 65 66 Pulse Rate [Pulse Oximeter] 65 Respiratory Rate 12 Blood Pressure 121/85 Blood Pressure [Le ft Upper Arm] 120/85 Pulse Oximetry 97 97 97 Oxygen Delivery Me thod Room Air 08/29/24 11:15 08/29/24 11:30 08/29/24 11:32 Temperature Pulse Rate 68 68 69 Pulse Rate [Pulse Oximeter] Respiratory Rate 15 Blood Pressure 128/84 Blood Pressure [Le ft Upper Arm] Pulse Oximetry 97 99 100 Oxygen Delivery Me thod 08/29/24 11:33 08/29/24 11:45 08/29/24 14:30 Temperature Pulse Rate 67 70 Pulse Rate [Pulse Oximeter] 83 Respiratory Rate 16 Blood Pressure Blood Pressure [Le ft Upper Arm] 119/79 Pulse Oximetry 100 98 96 Oxygen Delivery Me thod Room Air 08/29/24 15:18 Temperature Pulse Rate Pulse Rate [Pulse Oximeter] 83 Respiratory Rate 16 Blood Pressure Blood Pressure [Le ft Upper Arm] Pulse Oximetry 98 Oxygen Delivery Me thod Room Air Course Course ED Course: Reviewed most recent annual physical from March 2024, no specific clinical concerns at that time, patient was continued on lamotrigine and atorvastatin at that time. Patient presents today with altered mental status and decreased responsiveness, along with a syncopal episode. On exam here, patient's finally stable, arouses to voice and moans a little bit. Withdraws symmetrically in all 4 extremities. No abdominal tenderness. Consider medication reaction, toxic encephalopathy, infectious etiology, intracranial pathology. At this point would not activate stroke code given vague onset of symptoms and no focal neurologic symptoms on limited neurologic exam. Labs are ordered along with CT scan of the head and will continue to monitor closely. Did verify full code status with staff and confirmed with paperwork brought by patient. EKG independently interpreted by me performed at 11:13 a.m. demonstrates sinus rhythm rate 67, no acute ST elevations or depressions, normal intervals, normal axis, QTC 433, MS 176. No prior for comparison Reevaluation(s) Time of Reevaluation #1: 12:21 Reevaluation #1: Patient recheck, he has no wake and alert, back to baseline mentation, no focal neurologic deficits Time of Reevaluation #2: 13:30 Reevaluation #2: Patient unable lay still for CT of the brain or chest. Given return to baseline mental status, intracranial pathology is clinically unlikely. Chest x-ray will be performed. If CT of the chest or head still needed, patient will need sedation. Time of Reevaluation #3: 14:11 Reevaluation #3: Labs independently interpreted by me with normal CBC, venous blood gas with pCO2 55 but normal venous pH, normal basic panel, lactate slightly overnight to 2.4. IV fluids were ordered but patient is not yet have an IV due to being combative when this is attempted. Chest x-ray independently interpreted by me is negative. Nasal Versed ordered to facilitate IV start and will see if we can do imaging of the head and chest wall patient is sedated. Additional Reevaluation(s): 15:04 CT head independently interpreted by me negative for acute findings. CT scan of the chest independently interpreted by me negative for acute findings. 16:54 respiratory panel is negative, urinalysis so far negative but microscopic examination still pending. No etiology for patient's spell of altered mentation and today is found. Consider TIA although patient had no focal neurologic deficits any time, patient also may have been postictal but did have fairly abrupt return to normal mentation. Discussed disposition with caregiver at bedside. We discussed the patient be admitted but frankly I think patient would better monitored at his [facility] by people who know him well and are able to see subtle changes in behavior that may be missed in the hospital. Patient has remained vital is stable while in the emergency department, did briefly returned to baseline mentation but then was sedated with nasal Versed for cares and still little sleepy but is more awake alert than when he initially arrived. With urinary incontinence, altered mentation and weakness, suspect the patient may have had a seizure overnight. Has an appointment with neurology upcoming and has primary care follow-up next week. Discussed return to emergency department precautions and patient is stable for discharge Vital Signs Vital signs: Initial Vital Signs Respiratory Effort Spontaneous, Non-Labored 08/29/24 10:49 Respiratory Depth Normal 08/29/24 10:49 Respiratory Pattern Normal 08/29/24 10:49 Vital Signs Temperature 96.5 F L 08/29/24 10:59 Pulse Rate 65 08/29/24 10:59 Respiratory Rate 12 08/29/24 10:59 Blood Pressure 120/85 08/29/24 10:59 Pulse Oximetry 97 08/29/24 10:59 Oxygen Delivery Method Room Air 08/29/24 10:59 Temperature 96.5 F L 08/29/24 10:59 Pulse Rate 83 08/29/24 15:18 Respiratory Rate 16 08/29/24 15:18 Blood Pressure 119/79 08/29/24 14:30 Pulse Oximetry 98 08/29/24 15:18 Oxygen Delivery Method Room Air 08/29/24 15:18 Medications Administered Medications: Discontinued Medications Generic Name Dose Route Start Last Admin Trade Name Freq PRN Reason Stop Dose Admin Sodium Chloride 1,000 mls @ 1,000 mls/hr 08/29/24 13:45 08/29/24 16:18 0.9 % Sodium Chloride 1000 Ml IV 08/29/24 14:44 Infused .Q1H CARL Infusion Vancomycin/PEG/NADA/Lysine/Water 1.5 gm in 300 mls @ 200 mls/hr 08/29/24 13:45 08/29/24 14:21 Vancomycin 1.5 Gm/300 Ml IVPB 08/29/24 15:14 Not Given ONCE ONE Protocol Lorazepam 1 mg 08/29/24 12:14 08/29/24 12:14 Lorazepam 1 Mg Tablet PO 08/29/24 12:15 1 mg ONCE ONE Administration Midazolam HCl 5 mg 08/29/24 14:04 08/29/24 14:17 Midazolam Hcl 1 Mg/Ml Inj NOSTRIL-B 08/29/24 14:05 5 mg ONCE ONE Administration Medical Decision Making Lab Data Labs: Lab Results 08/29/24 08/29/24 08/29/24 Range/Units 13:11 13:30 Unknown WBC 7.02 (4.50-11.00) K/uL RBC 5.50 (4.30-5.90) m/uL Hgb 15.9 (13.5-17.5) gm/dL Hct 48.5 (37.0-53.0) % MCV 88 (80-100) fL MCH 29 (26-34) pg MCHC 33 (32-36) gm/dL RDW Coeff of Dileep 12.8 (11.5-15.5) % Plt Count 168 (140-440) K/uL Neut % (Auto) 69.6 (42.0-72.0) % Lymph % (Auto) 24.6 (20-44) % [place] % (Auto) 5.3 (0.0-11.0) % Eos % (Auto) 0.1 (0.0-7.0) % Baso % (Auto) 0.1 (0.0-3.0) % Neut # (Auto) 4.88 (1.7-7.0) K/uL Lymph # (Auto) 1.73 (0.90-2.90) K/uL [place] # (Auto) 0.40 (0.00-0.90) K/UL Eos # (Auto) 0.01 (0.00-0.50) K/uL Baso # (Auto) 0.01 (0.00-0.30) K/uL Abs Immat Gran (auto) 0.02 (0.00-0.30) K/uL Imm/Tot Granulo (auto) 0.3 % VBG pH 7.348 (7.32-7.43) VBG pCO2 55 H (40-50) mmHG VBG pO2 33.2 (25-47) mmHG VBG HCO3 30 H (21-28) mmol/L Sodium 139 (135-149) mmol/L Potassium 4.7 (3.6-5.1) mmol/L Chloride 102 (96-114) mmol/L Carbon Dioxide 25 (20-32) mmol/L Anion Gap 12 (7-15) mEq/L BUN 20 (5-24) mg/dL Creatinine 0.7 (0.5-1.5) mg/dL Estimated GFR 116 ml/min Glucose 104 (60-115) mg/dL Lactate 2.4 H (0.5-1.9) mmol/L Calcium 9.2 (8.4-10.6) mg/dL Magnesium 2.4 (1.5-2.6) mg/dL Total Bilirubin 0.7 (0.1-1.5) mg/dL Direct Bilirubin 0.4 (0.0-0.5) mg/dL AST 41 H (12-35) U/L ALT 36 (4-50) U/L Alkaline Phosphatase 165 H (40-150) U/L Ammonia 8.9 L (13.1-30.0) umol/L Troponin I 0.01 (0.01-0.04) ng/mL Total Protein 8.2 (6.0-8.3) g/dL Albumin 4.7 (3.3-5.0) g/dL Procalcitonin < 0.03 L (<0.50) ng/mL Urine Color Yellow (Yellow) Urine Appearance Clear (Clear) Urine pH 7.5 (5.0-8.5) Ur Specific [place] 1.015 (1.000-1.030) Urine Protein Negative (Negative) Urine Glucose (UA) Negative (Negative) Urine Ketones Trace A (Negative) Urine Blood Negative (Negative) Urine Nitrite Negative (Negative) Urine Bilirubin Negative (Negative) Urine Urobilinogen 0.2 (0.2-1.0) Ur Leukocyte Esterase Negative (Negative) Urine RBC 0-2 (0-2) Urine WBC 0-2 (0-5) Ur Squamous Epith Cells Few (None-Few) Urine Bacteria None (None) SARS-CoV-2 (PCR) Negative SARS-CoV-2 (Negative) Influenza Type A (PCR) Negative PCR FLU A (Negative) Influenza Type B (PCR) Negative PCR FLU B (Negative) RSV (PCR) Negative PCR RSV (Negative) Discharge Plan Discharge Clinical Impression: Acute alteration in mental status, Seizure disorder, Cognitive developmental delay Patient Disposition: Home w/ Parent or Adult Condition: Improved Instructions: Epilepsy (DC), Altered Mental Status (ED) Additional Instructions: Monitor oral intake closely. Watch for vomiting, diarrhea, fever, breathing difficulty. If any these develop, return to the emergency department Activity Level: Activity as Tolerated Discharge Diet: Regular Prescriptions: No Action ketotifen fumarate [Zaditor] 0.025 % (0.035 %) drops 1 drp ophthalmic (eye) BID PRN (Reason: allergy symptoms) Qty: 5 0RF Rx Instructions: administer at least 8 hours apart for 3 days hydrocortisone [Anti-Itch (HC)] 1 % cream 1 applic topical BID PRN (Reason: skin irritation) Qty: 28.35 0RF trazodone 50 mg tablet 50 mg PO TID quetiapine 100 mg tablet 100 mg PO TID gemfibrozil 600 mg tablet 600 mg PO BID diazepam 5 mg tablet 2 mg PO DAILY escitalopram oxalate 10 mg tablet 10 mg PO DAILY cholecalciferol (vitamin D3) [Vitamin D3] 25 mcg (1,000 unit) tablet 25 mcg PO DAILY lamotrigine 200 mg tablet 200 mg PO Q12H acetaminophen 500 mg capsule 1,000 mg PO Q6H PRN acetic acid 2 % solution 4 drp otic (ear) TID Rx Instructions: 4 drops both ears TID clotrimazole 1 % cream 1 applic topical BID loperamide [Imodium A-D] 2 mg capsule 2 - 4 mg PO PRN PRN propranolol 10 mg tablet 10 mg PO TID Qty: 90 2RF sennosides 8.6 mg tablet 25.8 mg PO DAILY Qty: 90 1RF atorvastatin 20 mg tablet 20 mg PO DAILY multivitamin [One Daily Essential] Tablet 1 tab PO DAILY white petrolatum [Lip Treatment] Gel 1 applic topical 6XD PRN (Reason: dry skin) Qty: 113 0RF aspirin [Children's Aspirin] 81 mg Tablet,Chewable 81 mg PO DAILY Qty: 90 0RF risperidone 1 mg tablet 2 mg PO .5X/day triamcinolone acetonide 0.1 % cream 1 applic topical BID-TID acyclovir 400 mg tablet 400 mg PO 3XD PRN lamotrigine 25 mg tablet 25 mg PO QHS Follow Up/Referrals: Rosalio Conner MD [Primary Care Provider] - Stand Alone Forms: [facility] Info Instructions
--- NOTE | 2024-08-29 11:33 | CRLHL7_ITS ---
For Patients: As a result of the Century Cures Act, medical imaging exams and procedure reports are released immediately into your electronic medical record. You may view this report before your referring provider. If you have questions, please contact your health care provider. INDICATION: Cough TECHNIQUE: Axial images were obtained from the thoracic inlet to the diaphragm. Reformats: Coronal and sagittal IV Contrast: None COMPARISON: Chest CT 12/30/2022 FINDINGS: Mediastinum: Calcified mediastinal and right hilar lymph nodes. Thoracic aorta normal in caliber. No pericardial effusion. Lungs and Pleural Space: No pleural effusion or pneumothorax. Calcified granuloma right lower lobe. Minimal areas of discoid atelectasis. Chest wall: No masses. Upper abdomen: Calcifications within the liver and spleen consistent with old granulomatous disease. Bones: Unremarkable for age. IMPRESSION: 1. Minimal areas of discoid atelectasis. 2. Old granulomatous disease. Please note that all CT scans at this facility use dose modulation, iterative reconstruction, and/or weight-based dosing when appropriate to reduce radiation dose to as low as reasonably achievable. Dictated by Alex Mistry MD @ 08/29/2024 3:12:04 PM (Electronically Signed)
--- NOTE | 2024-08-29 11:33 | CRLHL7_ITS ---
For Patients: As a result of the Century Cures Act, medical imaging exams and procedure reports are released immediately into your electronic medical record. You may view this report before your referring provider. If you have questions, please contact your health care provider. INDICATION: Altered mental status TECHNIQUE: CT head without contrast. COMPARISON: Head CT 10/06/2023 FINDINGS: CSF spaces: Within normal limits for age. Brain parenchyma: The mederos-white differentiation is normal. No sign of mass, hemorrhage, or midline shift. Skull base and calvarium: Trace mucosal thickening paranasal sinuses. The visualized orbits are grossly unremarkable. No skull fractures. IMPRESSION: Unremarkable noncontrast head CT. Please note that all CT scans at this facility use dose modulation, iterative reconstruction, and/or weight-based dosing when appropriate to reduce radiation dose to as low as reasonably achievable. Dictated by Alex Mistry MD @ 08/29/2024 3:09:47 PM (Electronically Signed)
[2024-08-29] MEDS: LORazepam 1 MG TABLET PO (12:14)
[2024-08-29 13:17] LABS: HCO3 VBG 30 mmol/L (21-28); PCO2 VBG 55 mmHG (40-50); PO2 VBG 33.2 mmHG (25-47); pH VBG 7.348 (7.32-7.43)
[2024-08-29 13:18] LABS: Lactate* 2.4 mmol/L (0.5-1.9)
--- NOTE | 2024-08-29 13:31 | CRLHL7_ITS ---
For Patients: As a result of the Cures Act, medical imaging exams and procedure reports are released immediately into your electronic medical record. You may view this report before your referring provider. If you have questions, please contact your health care provider. INDICATION: : CRACKLES. PT MENTALLY CHALLENGED. UNABLE TO HOLD BREATH OR MOVE HEAD BACK COMPARISON: None TECHNIQUE: One view(s) of the chest FINDINGS/IMPRESSION: The cardiomediastinal silhouette is within normal limits in appearance. Mild pulmonary vascular congestion, accentuated by portable technique and low lung volumes. There is no focal airspace consolidation, pleural effusion, or pneumothorax. No displaced fractures. Dictated by Joel Potts MD @ 08/29/2024 1:56:25 PM (Electronically Signed)
[2024-08-29 13:35] LABS: Basophils Absolute Auto 0.01 K/uL (0.00-0.30); Basophils Percent Auto 0.1 % (0.0-3.0); Eosinophils Absolute Auto 0.01 K/uL (0.00-0.50); Eosinophils Percent Auto 0.1 % (0.0-7.0); Hematocrit 48.5 % (37.0-53.0); Hemoglobin* 15.9 gm/dL (13.5-17.5); Immature Granulocytes Abs Auto 0.02 K/uL (0.00-0.30); Immature Granulocytes Pct Auto 0.3 %; Lymphocytes Absolute Auto 1.73 K/uL (0.90-2.90); Lymphocytes Percent Auto 24.6 % (20-44); Mean Corpuscular HGB Conc 33 gm/dL (32-36); Mean Corpuscular Hemoglobin 29 pg (26-34); Mean Corpuscular Volume 88 fL (80-100); Monocytes Percent Auto 5.3 % (0.0-11.0); Neutrophils Absolute Auto 4.88 K/uL (1.7-7.0); Neutrophils Percent Auto 69.6 % (42.0-72.0); Platelet Count* 168 K/uL (140-440); RDW Coefficient of Variation % 12.8 % (11.5-15.5); White Blood Count* 7.02 K/uL (4.50-11.00)
[2024-08-29 13:41] LABS: Slide Review Reflex No
[2024-08-29 13:54] LABS: Chloride* 102 mmol/L (96-114); Potassium* 4.7 mmol/L (3.6-5.1); Sodium* 139 mmol/L (135-149)
[2024-08-29 13:57] LABS: Anion Gap 12 mEq/L (7-15); Blood Urea Nitrogen* 20 mg/dL (5-24); Calcium* 9.2 mg/dL (8.4-10.6); Carbon Dioxide* 25 mmol/L (20-32); Creatinine* 0.7 mg/dL (0.5-1.5); Estimated Glomerular Filt Rate 116 ml/min; Glucose* 104 mg/dL (60-115)
[2024-08-29] MEDS: MIDAZOLAM HCL 1 MG/ML inj 5 MG NOSTRIL-B (14:17)
[2024-08-29] MEDS: 0.9 % SODIUM CHLORIDE 1000 ml 1,000 ML IV (14:18)
[2024-08-29 14:25] LABS: Procalcitonin* < 0.03 ng/mL (<0.50)
[2024-08-29 14:44] LABS: Albumin* 4.7 g/dL (3.3-5.0)
[2024-08-29 14:47] LABS: Bilirubin Direct* 0.4 mg/dL (0.0-0.5); Bilirubin Total* 0.7 mg/dL (0.1-1.5); Total Protein* 8.2 g/dL (6.0-8.3)
[2024-08-29 14:48] LABS: Alanine Aminotransferase* 36 U/L (4-50); Alkaline Phosphatase* 165 U/L (40-150); Aspartate Amino Transferase* 41 U/L (12-35); Magnesium* 2.4 mg/dL (1.5-2.6)
[2024-08-29 15:09] LABS: Ammonia* 8.9 umol/L (13.1-30.0)
[2024-08-29 15:44] LABS: Troponin I* 0.01 ng/mL (0.01-0.04)
[2024-08-29 16:34] LABS: Appearance Urine Clear (Clear); Bilirubin Urine Negative (Negative); Blood Urine Negative (Negative); Color Urine Yellow (Yellow); Glucose Urine Negative (Negative); Ketones Urine Trace (Negative); Leukocyte Esterase Urine Negative (Negative); Nitrite Urine Negative (Negative); Protein Urine Negative (Negative); Specific Gravity Urine 1.015 (1.000-1.030); Urobilinogen Urine 0.2 (0.2-1.0); pH Urine 7.5 (5.0-8.5)
[2024-08-29 16:47] LABS: PCR FLU A Negative PCR FLU A (Negative); PCR FLU B Negative PCR FLU B (Negative); PCR RSV Negative PCR RSV (Negative); SARS PCR* Negative SARS-CoV-2 (Negative)
[2024-08-29 16:56] LABS: RBC Urine 0-2 (0-2); Squamous Epithelial Cell Urine Few (None-Few); WBC Urine 0-2 (0-5)
--- NOTE | 2024-08-29 17:14 | ED.NURSE ---
manager architectural spoke with [facility] who requested Lamotrigine level.
== END 2024-08-29 18:01 | disposition home or self-care (01) ==
PROVIDERS: Emergency Provider Family Medicine; PCP Family Medicine
DX: R41.82 Altered mental status, unspecified (principal); R56.9 Unspecified convulsions; G31.84 Mild cognitive impairment of uncertain or unknown etiology
CPT/HCPCS: 36415; 70450; 71045; 71250; 80048; 80076; 80175; 81001; 82140; 82803; 83605; 83735; 84145; 84484; 85025; 87631; 93005; 96361; 96374; 99284; 99285; A9270; J2250; J7030

== ENCOUNTER 2025-06-26 11:10 | Emergency (ER) | payer MEDICARE, MEDICAID, SELFPAY ==
--- OUTSIDE RECORDS SUMMARY | 2025-06-26 11:12 | XMS_ITS | Clinical Summary ---
Author Organization [employer] [facility] Address [facility] [place] [address] Care Team Providers Care Learning Disabilities Teacher Name Role Phone Kristy Valerio Dina Unavailable [phone] Tanja Sahni MD Unavailable Rosalio Conner MD Primary Care Provider Allergies Active Allergy Reactions Criticality Noted Date Comments Cephalexin Rash 04/26/2013 Medications lamoTRIgine (LAMICTAL) 200 mg tabletIndications :Unspecified epilepsy without mention of intractable epilepsy (HC) Take 1.5 tablets by mouth 2 times daily. 0 11/19/19 12 Active acetaminophen (TYLENOL EXTRA STRGTH) 500 mg tablet Take 1,000 mg by mouth every 4 hours. Active risperiDONE (RISPERDAL) 2 mg tabletIndications :Intermittent explosive disorder TAKE 1 TABLET BY MOUTH 3 TIMES DAILY 90 Tablet 1 04/24/20 21 Active traZODone (DESYREL) 50 mg tabletIndications :Intermittent explosive disorder TAKE 1 TABLET BY MOUTH 3 TIMES DAILY 90 Tablet 07/11/20 21 Active escitalopram oxalate (LEXAPRO) 10 mg tabletIndications :Obsessive-compul sive disorder, unspecified type Take 1 Tablet (10 mg) by mouth every morning. 0 03/17/20 22 Active QUEtiapine (SEROQUEL) 100 mg tablet Take 1 Tablet (100 mg) by mouth three times daily. 0 05/13/20 22 Active acyclovir (ZOVIRAX) 400 mg tabletIndications :History of cold sores Take 1 Tablet (400 mg) by mouth three times daily. For 5 days. Take with each cold sore outbreak. 15 Tablet 5 01/07/20 23 Active propranoloL (INDERAL) 10 mg tablet three times daily. 01/17/20 23 Active lamoTRIgine (LAMICTAL) 25 mg tablet 02/05/20 23 Active diazePAM (VALIUM) 2 mg tablet Take 1 Tablet (2 mg) by mouth. 02/25/20 23 Active docosanol 10 % (ABREVA) 10 % cream Apply topically to affected area(s) 5 times daily. prn Active loperamide (IMODIUM) 2 mg tablet each time if needed for Diarrhea. Take 2 tablets (4mg) orally with 1st loose stool, then 1 tablet (2mg) with other loose stools. Max 8 tablets (16 mg) in 24 hrs. Active milk of magnesia concentrate (Milk Of Magnesia Concentrated) 2,400 mg/10 mL concentrate Take by mouth. Active neomyc/colist/hyd rocort/thonzn (NEOMYCIN-COLIST- HC-THONZONIUM OTIC) Place 4 Drops into the ear(s) three times daily. 05/11/20 23 Active doxycycline monohydrate (MONODOX) 100 mg capsule Take 100 mg by mouth once daily. 12/30/19 23 Active fluconazole (DIFLUCAN) 150 mg tablet Take 150 mg by mouth once daily. 01/07/20 23 Active One Daily Essential tablet Take 1 Tablet by mouth once daily. 08/27/20 23 Active white petrolatum ointment Apply topically to affected area(s). 6 times per day 01/03/20 23 Active clotrimazole (LOTRIMIN) 1 % creamIndications: Zee infection of flexural skin Apply topically to affected area(s) 2 times daily if needed (rash). 113 g 3 10/03/19 24 Active acetic acid (VOSOL) 2 % otic solutionIndicatio ns:Ceruminosis, bilateral PLACE 4 DROPS INTO EACH EAR THREE TIMES DAILY NEEDED FOR CERUMEN IMPACTION 15 mL 64 01/20/20 24 Active sodium chloride (OCEAN) 0.65 % nasal solutionIndicatio ns:Nasal congestion Inhale 1 Slater into affected nostril(s) every 30 minutes if needed for Nasal Congestion or Nasal Dryness. 45 mL 06/14/20 24 Active triamcinolone (ARISTOCORT; KENALOG) 0.1 % creamIndications: Acute eczema Apply topically to affected area(s) 2 times daily if needed (effected area of external ears). Not to exceed 10 days per episode. 28 g 1 08/17/20 24 Active multivitamin with folic acid 0.4 mg (Tab-A-Yovani)Indic ations:Obesity due to excess calories, unspecified obesity severity TAKE 1 TABLET BY MOUTH DAILY 90 Tablet 2 10/01/19 25 Active sennosides (Senna) 8.6 mg tabletIndications :Chronic constipation TAKE 3 TABLETS BY MOUTH DAILY 270 Tablet 2 10/28/19 25 Active aspirin chewable 81 mg chewable tabletIndications :Antiplatelet or antithrombotic long-term use TAKE 1 TABLET BY MOUTH DAILY 90 Tablet 3 10/28/19 25 Active atorvastatin 20 mg tabletIndications :Hyperlipidemia, unspecified hyperlipidemia type TAKE 1 TABLET BY MOUTH EVERY NIGHT AT BEDTIME 90 Tablet 1 02/29/20 25 Active mometasone (ELOCON) 0.1 % creamIndications: Dermatitis of both ear canals Use in affected outer ear canal as needed. Up to twice a day for up to 2 weeks. Do not push in with qtip or any device. Only apply where your fingers can reach. This is used when the outer ear canal is itchy or skin is scaly. 15 g 1 03/21/20 25 Active cholecalciferol (VITAMIN D3) 1,000 unit tabletIndications :Vitamin D deficiency TAKE 1 TABLET BY MOUTH EVERY MORNING 90 Tablet 2 06/05/20 25 Active cetirizine (ZYRTEC) 10 mg tabletIndications :Acute bacterial conjunctivitis of left eye TAKE 1 TABLET BY MOUTH DAILY 90 Tablet 2 06/05/20 25 Active cetirizine (ZYRTEC) 10 mg tabletIndications :Acute bacterial conjunctivitis of left eye TAKE 1 TABLET BY MOUTH DAILY 90 Tablet 2 07/12/20 24 2024 Discontinued cholecalciferol (VITAMIN D3) 1,000 unit tabletIndications :Vitamin D deficiency TAKE 1 TABLET BY MOUTH EVERY MORNING 90 Tablet 03/19/20 25 2024 Discontinued Active Problems Problem Noted Date Diagnosed Date Thrombocytopenia 10/13/2023 Overweight 04/01/2023 NSTEMI (type 2) 12/30/2022 in context of pneumoni a 01/24/2023 Seizure disorder 01/24/2023 Controlled substance agreement signed 03/31/2017 Overview (03/31/2017): Signed; 10/04/16-Dr. 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 Overview (04/17/2007): GH deficiency Intermittent explosive disorder 03/20/2007 Overview (04/17/2007): behavior difficulties Severe intellectual disabilities 03/20/2007 Overview (11/06/2021): Non-Verbal Resolved Problems Problem Noted Date Diagnosed Date Resolved Date History of seizure disorder 03/11/2020 05/13/2022 Bilateral impacted cerumen 01/03/2015 0 05/13/2022 Obesity, unspecified 12/29/2012 023 Encounter for long-term (cur rent) use of other medications 03/05/2011 12/29/2012 Nonintractable epilepsy with out status epilepticus 04/17/2007 04/02/2024 Unspecified intellectual disabilities 04/17/2007 11/09/2007 Encounters Date Type Department Care Team Description 06/04/2025 Refill [facility] [address] [place] [address] Rosalio Conner MD Refill Request (Cholecalciferol, Cetirizine) 05/01/2025 11:00 AM CDT Ancillary Procedure [facility] [address] [place] [address] 05/01/2025 Travel 04/03/2025 2:30 PM CDT Office Visit [facility] [address] [address] Rosalio Conner MD Medicare ANNUAL (subsequent) Visit 04/03/2025 Travel from Last 3 Months Immunizations Immunization Administration Dates Next Due COVID-19 vaccine (Moderna 10 0mcg/0.5mL) PF, MDV 11/05/2020,10/08/2020 Hepatitis B (Peds) 05/17/1996,12/15/1995, 996 INFLUENZA, IIV3 PF (AGE >= 6 MO) 07/04/2024 Influenza A (H1N1), Inactivated 09/01/2009 Influenza RIV4 [...] e alcohol) PHQ-2 Answer Date Recorded PHQ-2 TOTAL SCORE 0 04/02/2024 Financial Resource Strain Answer Date R ecorded Difficulty of Paying Living Expenses Not on file 09/12/2021 Difficulty of Paying Living Expenses Not on file 09/12/2021 Sex and Gender Information Value Date Recorded Sex Assigned at Not on file Legal Sex 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 Gender Identity Not on file Sexual Orientation Lesbian or Holman 12/08/2020 11 :38 AM CDT Obstetrics History Last Filed Vital Signs Vital Sign Reading Time Taken Comments Blood Pressure 134/84 04/03/2025 2:34 PM CDT Pulse 82 04/03/2025 2:34 PM CDT Temperature 36.9 C (98.5 F) 06/09/2023 10:19 AM CDT Respiratory Rate 13 05/24/2022 9:43 AM CDT Oxygen Saturation 95% 04/03/2025 2:34 PM CDT Inhaled Oxygen Concentration - - Weight 78 kg (172 lb) 04/03/2025 2:34 PM CDT Height 158 cm (5' 2.21) 04/03/2025 2:34 PM CDT Body Mass Index 31.25 04/03/2025 2:34 PM CDT Plan of Treatment Upcoming Encounters Date Type Department Care Team (Late st Contact Info) Description 09/25/2025 3:00 PM PERMANENT MOLD SUPERVISOR Office Visit [facility] [address] [place] [address] Dunia Valdez PA [address] [place] [id number] 04/04/2026 10:30 AM CDT Office Visit [facility] [address] [place] [address] Rosalio Conner MD [address] [place] [address] Health Maintenance Due Date Last Done Comments Pneumococcal series for age 6-49 (1 of 2 - PCV) 1997 Colonoscopy through age 75 11/19/2023 Tetanus booster 12/19/2023 12/18/2013, 05/24/2004 Depression screening for age 12+ 04/02/2025 04/02/2024, 12/14/2018, 04/05/2017, Additional history exists Influenza Vaccine (#1) 2025 , 07/21/2023, 06/22/2022, Additional history exists BMI (ht and wt on same day) for age 18+ 04/03/2026 04/03/2025, 04/02/2024, 04/01/2023, Additional history exists Lipids for age 45-75 04/03/2030 04/03/2025, 04/02/2024, 04/01/2023, Additional history exists RSV vaccine for adults or (1 - 1-dose 75+ series) 2053 Hepatitis B series for 19+ Completed 05/17, 12/15/1995, 10/20/1995 Hepatitis C screening for ag e 18-79 Completed 07/14/2022 HIV for age 15-65 Completed 04/01/2023 COVID-19 vaccine series Completed 07/04/20, 07/21/2023, 06/22/2022, Additional history exists Procedures Procedure Name Priority Date/Time Associated Diagnosis Comments XR DXA BONE DENSITY 2 SITES AXIAL Routine 05/01/2025 11:21 AM CDT High risk medication use Seizure disorder (HC) Osteoporosis, unspecified osteoporosis type, unspecified pathological fracture presence DIRECT LDL ([facility] REFLEX ONLY) Routine 04/03/2025 3:12 PM CDT LIPID PANEL W REFLEX MEASURED LDL Routine 04/03/2025 3:12 PM CDT Hyperlipidemia, unspecified hyperlipidemia type BASIC METABOLIC PANEL Routine 04/03/2025 3:12 PM CDT Hyperlipidemia, unspecified hyperlipidemia type LC HIV-1/O/2, 4TH GENERATION Routine 04/01/2023 9:52 AM CDT Screening for HIV (human immunodeficiency virus) ANTI HCV Routine 07/14/2022 8:28 AM CDT Need for hepatitis C screening test from Last 3 Months or Most Recently Relevant to Health Maintenance Results * XR DXA BONE DENSITY 2 SITES AXIAL (05/01/2025 11:21 AM CDT) Anatomical Region Laterality Modality Spine, HIPS, HIPL, HIPR Other Impressions 05/01/2025 4:57 PM CDT Normal bone density. RECOMMENDATIONS: The National Osteoporosis Foundation recommends pharmacologic treatment for patients with T-scores of -2.5 or less, patients with prior history of fragility fractures, or patients with 10-year probability of greater than 3% at hips or greater than 20% of suffering major osteoporotic fractures. Recommend continued optimization of calcium and vitamin D intake through dietary means and/or supplementation and regular exercise. Repeat scan recommended in 3-5 years. Belem Jay PA-C [facility] 05/01/2025 Narrative 05/01/2025 4:57 PM CDT For Patients: Results are automatically released to your [facility] ([employer]) account once available, in compliance with federal regulations. This means that you may see your results before your provider has had a chance to review them. Please allow 2-3 business days for your provider to comment on the results. XR DXA Bone Mineral Density (BMD) EXAM LOCATION: [address] [address] PATIENT NAME: Saulo Rinaldi DATE OF : 1980 EXAM DATE: 05/01/2025 REQUESTING PROVIDER: Rosalio Conner MD GENDER AT : male HEIGHT: 5' 2.21 (04/03/2025) WEIGHT: 172 lb (04/03/2025) MENOPAUSAL STATUS: Postmenopausal RACE/ETHNICITY: White RISK FACTORS: White Race CURRENT MEDICATION FOR BONE LOSS: NONE INDICATION: Initial scan for screening COMPARISON DATE(S): None DXA scans are compared to prior studies for a patient only when the two (or more) studies were performed on the same scanner. It is not possible to compare data generated on one scanner to data from another because there are not standards in DXA equipment. This applies even if the two scanners are made by the same commercial energy rater. PROCEDURE: Dual-energy x-ray absorptiometry performed with routine technique. Reporting is completed in the form of a T-score. The T-score represents the standard deviation from peak bone mass based on young healthy adult. A Z-score is used for diagnosis in premenopausal women, and for men under the age of 50. FINDINGS: RESULT LUMBAR SPINE L1 - L4 BMD: 1.290 g/cm2 T-Score: + 0.4 Z-Score: + 0.6 Change from prior: None RESULTS FEMUR Left femoral neck BMD: 1.161 g/cm2 T-Score: + 0.7 Z-Score: + 1.2 Change from prior: None Right femoral neck BMD: 1.169 g/cm2 T-Score: + 0.8 Z-Score: + 1.3 Change from prior: None Left hip BMD: 1.178 g/cm2 T-Score: + 0.5 Z-Score: + 0.8 Change from prior: None Right hip BMD: 1.127 g/cm2 T-Score: + 0.2 Z-Score: + 0.5 Change from prior: None WHO criteria: Normal: T-score at or above -1 SD Osteopenia: T-score between -1.1 and -2.4 SD Osteoporosis: T-score at or below -2.5 SD Rosalio Conner MD DEXA Final Result * DIRECT LDL ([facility] REFLEX ONLY) (04/03/2025 3:12 PM CDT) Pathologist [facility] DIRECT LDL 68 <100 mg/dL [facility] Comment: Desirable range <100 mg/dL for primary prevention; <70 mg/dL for patients with CHD or diabetic patients with > or = 2 CHD risk factors. 04/03/2025 3:12 PM CDT 04/03/2025 3:12 PM CDT Rosalio Conner MD CHEMISTRY Final Result [facility] [address] [place] [address], [facility] [address] [place] [address] * (ABNORMAL) LIPID PANEL W REFLEX MEASURED LDL (04/03/2025 3:12 PM CDT) Pathologist [facility] CHOLESTEROL, TOTAL 153 <200 mg/dL [facility] HDL CHOLESTEROL 30(L) > OR = 40 mg/dL [facility] TRIGLYCERIDES 445(H) <150 mg/dL [facility] Comment: If a non-fasting specimen was collected, consider repeat triglyceride testing on a fasting specimen if clinically indicated. Ayo et al. J. of Clin. Lipidol. 2015;9:129-169. LDL-CHOLESTEROL [facility] Comment: LDL cholesterol not calculated. Triglyceride levels greater than 400 mg/dL invalidate calculated LDL results. Reference range: <100 Desirable range <100 mg/dL for primary prevention; <70 mg/dL for patients with CHD or diabetic patients with > or = 2 CHD risk factors. LDL-C is now calculated using the Dontae-Ricci calculation, which is a validated novel method providing better accuracy than the Friedewald equation in the estimation of LDL-C. Dontae SS et al. SAMUEL. 2013;310(19): 4118-1834 (http://education.FatTail/faq/VVT692) CHOL/HDLC RATIO 5.1(H) <5.0 (calc) [facility] NON HDL CHOLESTEROL 123 <130 mg/dL (calc) [facility] Comment: For patients with diabetes plus 1 major ASCVD risk factor, treating to a non-HDL-C goal of <100 mg/dL (LDL-C of <70 mg/dL) is considered a therapeutic option. Blood BLOOD SPECIMEN / Unknown 04/03/2025 3:12 PM CDT 04/03/2025 3:12 PM CDT Rosalio Conner MD CHEMISTRY Final Result [employer] [facility] [address] [place] [address], [email or web address] [address] [place] [address] * (ABNORMAL) BASIC METABOLIC PANEL (04/03/2025 3:12 PM CDT) Pathologist [facility] GLUCOSE 107(H) 65 - 99 mg/dL [facility] Comment: Fasting reference interval For someone without known diabetes, a glucose value between 100 and 125 mg/dL is consistent with prediabetes and should be confirmed with a follow-up test. UREA NITROGEN (BUN) 17 7 - 25 mg/dL [facility] CREATININE 0.98 0.60 - 1.29 mg/dL [facility] EGFR 96 > OR = 60 mL/min/1. 73m2 [facility] BUN/CREATININE RATIO SEE NOTE: 6 - 22 (calc) [facility] Comment: Not Reported: BUN and Creatinine are within reference range. SODIUM 139 135 - 146 mmol/L [facility] POTASSIUM 4.2 3.5 - 5.3 mmol/L [facility] CHLORIDE 101 98 - 110 mmol/L [facility] CARBON DIOXIDE 29 20 - 32 mmol/L [facility] ELECTROLYTE BALANCE 9 7 - 17 mmol/L (calc) [facility] CALCIUM 9.8 8.6 - 10.3 mg/dL [facility] Blood BLOOD SPECIMEN / Unknown 04/03/2025 3:12 PM CDT 04/03/2025 3:12 PM CDT Rosalio Conner MD CHEMISTRY Final Result [employer] [facility] [address] [place] [address], [email or web address] [address] * LC HIV-1/O/2, 4TH GENERATION (04/01/2023 9:52 AM CDT) [facility] HIV Scr 4th Gen Non Reactive Non Reactive 04/05/2023 10:17 PM CDT [facility] Comment: HIV Negative HIV-1/HIV-2 antibodies and HIV-1 p24 antigen were NOT detected. There is no laboratory evidence of HIV infection. Blood BLOOD SPECIMEN / Unknown Butterfly / Unknown 04/01/2023 9:52 AM CDT 04/01/2023 9:53 AM CDT Narrative [facility] ([facility] - 04/05/2023 10:17 PM CDT Performed at: [address] [place] [address], [place] [id number] Physical Therapy Supervisor: Hilario Phipps MD, Phone: [phone] us Rosalio Conner MD LABORATORY Final Result [facility] ([facility]) [address] [place] [address], [place] * ANTI HCV (07/14/2022 8:28 AM CDT) HEPATITIS C ANTIBODY Non-React mike Non-React mike 07/14/2022 6:26 PM CDT [facility] Comment:Antibodies to HCV no t detected; does not exclude the possibility of exposure to HCV. Blood BLOOD SPECIMEN / Unknown Venipuncture / Unknown 07/14/2022 8:28 AM CDT 07/14/2022 8:29 AM CDT us Rosalio Conner MD SEND OUTS Final Result [facility] 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
[2025-06-26 11:14] VITALS: BP 117/77; PULSE 73; RESP 18; TEMP 36.4; O2SAT 94
--- NOTE | 2025-06-26 13:58 | ED.GENADULT ---
HPI - General Adult General Chief complaint: Fall/Minor Trauma Stated complaint: Fall, lac on back of head Time Seen by Provider: 06/26/25 13:50 History of Present Illness HPI narrative: This 44-year-old male comes in with intermediate personnel for evaluation of an injury that occurred prior to arrival. He leaned backwards and bumped his head on the edge of a piece of furniture. He has a laceration on the back of his head. There was no loss of consciousness. He is not showing any other sign of injury or other symptoms. Related Data Home Medications ?Medication ?Instructions ?Recorded ?Confirmed cholecalciferol (vitamin D3) 25 25 mcg PO DAILY 04/19/22 07/08/24 mcg (1,000 unit) tablet (Vitamin D3) diazepam 5 mg tablet 2 mg PO DAILY 04/19/22 07/08/24 escitalopram oxalate 10 mg tablet 10 mg PO DAILY 04/19/22 07/08/24 gemfibrozil 600 mg tablet 600 mg PO BID 04/19/22 07/08/24 quetiapine 100 mg tablet 100 mg PO TID 04/19/22 07/08/24 trazodone 50 mg tablet 50 mg PO TID 04/19/22 07/08/24 atorvastatin 20 mg tablet 20 mg PO DAILY 06/28/22 07/08/24 multivitamin (One Daily Essential 1 tab PO DAILY 06/28/22 07/08/24 tablet) acetaminophen 500 mg capsule 1,000 mg PO Q6H PRN 01/15/23 07/08/24 acetic acid 2 % ear solution 4 drp otic (ear) TID 01/15/23 07/08/24 clotrimazole 1 % topical cream 1 applic topical BID 01/15/23 07/08/24 loperamide 2 mg capsule (Imodium 2 - 4 mg PO PRN PRN 01/15/23 07/08/24 A-D) triamcinolone acetonide 0.1 % 1 applic topical BID-TID 05/11/23 07/08/24 topical cream acyclovir 400 mg tablet 400 mg PO 3XD PRN 07/08/24 07/08/24 lamotrigine 200 mg tablet 200 mg PO Q12H 07/08/24 07/08/24 lamotrigine 25 mg tablet 25 mg PO QHS 07/08/24 07/08/24 risperidone 1 mg tablet 2 mg PO .5X/day 07/08/24 07/08/24 Previous Rx's ?Medication ?Instructions ?Recorded aspirin 81 mg chewable tablet 81 mg PO DAILY #90 tabs 01/02/23 (Children's Aspirin) white petrolatum (Lip Treatment 1 applic topical 6XD PRN dry skin 01/02/23 topical jelly) #113 grams propranolol 10 mg tablet 10 mg PO TID #90 tabs 01/16/23 sennosides 8.6 mg tablet 25.8 mg (3 x 8.6 mg) PO DAILY #90 01/16/23 tabs hydrocortisone 1 % topical cream 1 applic topical BID PRN skin 07/08/24 (Anti-Itch (hydrocortisone)) irritation #28.35 grams ketotifen fumarate 0.025 % (0.035 1 drp ophthalmic (eye) BID PRN 07/08/24 %) eye drops (Zaditor) allergy symptoms #5 mL Allergies Allergy/AdvReac Type Severity Reaction Status Date / Time Cephalosporins Allergy Mild Rash Verified 07/08/24 13:30 Review of Systems Narrative: Unable to obtain due to cognitive development delay. 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 Sees Dr. Conner for primary care. code status is full. He does not smoke or drink alcohol Highest level of school completed/degree received: don't know Smoking Status: Never smoker Do you use any of these nicotine containing products: None Second hand tobacco smoke exposure: No How often do you have a drink containing alcohol: never How often do you have six or more drinks on one occasion: Never AUDIT-C Alcohol total score: 0 Non-prescribed substance use: denies use Caffeine: No service: No Exam Narrative: Exam Narrative: Constitutional: Well-developed, well-nourished, no acute distress. HEENT: 3 cm linear laceration on the occipital aspect of his scalp. This is not a full-thickness laceration. Neck: Normal range of motion. Nontender. Supple. Heart: Intact distal pulses. Lungs: No chest discomfort. No wheezes, rhonchi, or rales. Abdomen: Nontender. Back: Normal range of motion. Extremities: Normal range of motion. No injury. Skin: Intact. No rash. Warm. No erythema or pallor. Neurologic: No altered sensation. No weakness. Alert and oriented. Psychiatric: No suicidality. No anxiety or depression. No insomnia. Nursing notes and vitals signs are reviewed. Const: Vital Signs, click to edit/add: Vital Signs - 24 hr 06/26/25 11:14 Temperature 97.5 F L Pulse Rate [Right Pulse Oximeter] 73 Respiratory Rate 18 Blood Pressure [Ri ght Upper Arm] 117/77 Pulse Oximetry 94 Oxygen Delivery Me thod Room Air Course Vital Signs Vital signs: Initial Vital Signs Temperature 97.5 F L 06/26/25 11:14 Temperature Source Temporal Artery Scan 06/26/25 11:14 Pulse Rate 73 06/26/25 11:14 Respiratory Rate 18 06/26/25 11:14 Blood Pressure 117/77 06/26/25 11:14 Blood Pressure Mean 90 06/26/25 11:14 Blood Pressure Position Sitting 06/26/25 11:14 Pulse Oximetry 94 06/26/25 11:14 Oxygen Delivery Method Room Air 06/26/25 11:14 Vital Signs Temperature 97.5 F L 06/26/25 11:14 Pulse Rate 73 06/26/25 11:14 Respiratory Rate 18 06/26/25 11:14 Blood Pressure 117/77 06/26/25 11:14 Pulse Oximetry 94 06/26/25 11:14 Oxygen Delivery Method Room Air 06/26/25 11:14 Temperature 97.5 F L 06/26/25 11:14 Pulse Rate 73 06/26/25 11:14 Respiratory Rate 18 06/26/25 11:14 Blood Pressure 117/77 06/26/25 11:14 Pulse Oximetry 94 06/26/25 11:14 Oxygen Delivery Method Room Air 06/26/25 11:14 Medical Decision Making MDM Narrative Medical decision making narrative: This patient has a partial-thickness laceration in the occipital region of his scalp that would benefit from Dermabond repair. I did cleanse the wound and followed this with Dermabond repair bringing about excellent results. Instructions were given regarding wound care. Discharge Plan Discharge Clinical Impression: Laceration of scalp Patient Disposition: Home w/ Parent or Adult Condition: Improved Additional Instructions: Continue current plans. Follow up with MD as needed. Prescriptions: No Action ketotifen fumarate [Zaditor] 0.025 % (0.035 %) drops 1 drp ophthalmic (eye) BID PRN (Reason: allergy symptoms) Qty: 5 0RF Rx Instructions: administer at least 8 hours apart for 3 days hydrocortisone [Anti-Itch (HC)] 1 % cream 1 applic topical BID PRN (Reason: skin irritation) Qty: 28.35 0RF trazodone 50 mg tablet 50 mg PO TID quetiapine 100 mg tablet 100 mg PO TID gemfibrozil 600 mg tablet 600 mg PO BID diazepam 5 mg tablet 2 mg PO DAILY escitalopram oxalate 10 mg tablet 10 mg PO DAILY cholecalciferol (vitamin D3) [Vitamin D3] 25 mcg (1,000 unit) tablet 25 mcg PO DAILY lamotrigine 200 mg tablet 200 mg PO Q12H acetaminophen 500 mg capsule 1,000 mg PO Q6H PRN acetic acid 2 % solution 4 drp otic (ear) TID Rx Instructions: 4 drops both ears TID clotrimazole 1 % cream 1 applic topical BID loperamide [Imodium A-D] 2 mg capsule 2 - 4 mg PO PRN PRN propranolol 10 mg tablet 10 mg PO TID Qty: 90 2RF sennosides 8.6 mg tablet 25.8 mg PO DAILY Qty: 90 1RF atorvastatin 20 mg tablet 20 mg PO DAILY multivitamin [One Daily Essential] Tablet 1 tab PO DAILY white petrolatum [Lip Treatment] Gel 1 applic topical 6XD PRN (Reason: dry skin) Qty: 113 0RF aspirin [Children's Aspirin] 81 mg Tablet,Chewable 81 mg PO DAILY Qty: 90 0RF risperidone 1 mg tablet 2 mg PO .5X/day triamcinolone acetonide 0.1 % cream 1 applic topical BID-TID acyclovir 400 mg tablet 400 mg PO 3XD PRN lamotrigine 25 mg tablet 25 mg PO QHS Follow Up/Referrals: Rosalio Cnoner MD [Primary Care Provider, Family Practice] Stand Alone Forms: [facility] Info Instructions
== END 2025-06-26 14:12 | disposition home or self-care (01) ==
LOC: ED 14:05
PROVIDERS: Emergency Provider Emergency Medicine Emergency Medical Services; PCP Family Medicine
DX: S01.01XA Laceration without foreign body of scalp, initial encounter (principal); W22.8XXA Striking against or struck by other objects, initial encounter
CPT/HCPCS: 12002; 99283; 99284

== ENCOUNTER 2025-08-29 08:36 | Outpatient (CLI) | payer MEDICARE, MEDICAID, SELFPAY | END 2025-08-29 08:37 | disposition home or self-care (01) | LOC: AMB 09-01 18:32 | PROVIDERS: PCP Family Medicine; Visit Provider Family Medicine | DX: S09.90XA Unspecified injury of head, initial encounter (principal); R41.82 Altered mental status, unspecified; W18.30XA Fall on same level, unspecified, initial encounter; Y92.9 Unspecified place or not applicable | CPT/HCPCS: A0425; A0427 ==

== ENCOUNTER 2025-08-29 09:05 | Emergency (ER) | payer MEDICARE, MEDICAID, SELFPAY ==
[2025-08-29] VITALS (23 sets, daily range): BP systolic 92–119; BP diastolic 65–76; PULSE 16–72; RESP 9–19; TEMP 16.6–36.3; O2SAT 93–96; BMI 27.1
--- NOTE | 2025-08-29 09:08 | CRLHL7_ITS ---
For Patients: As a result of the Cures Act, medical imaging exams and procedure reports are released immediately into your electronic medical record. You may view this report before your referring provider. If you have questions, please contact your health care provider. Indication: Fall, altered mental status Technique: Volumetric multidetector CT images of the cervical spine were obtained without the administration of IV contrast. Comparison: None available. Findings: The cervical vertebral body heights are grossly maintained with minimal endplate Schmorl`s defects. Mildly limited evaluation due to noninclusion of the inferior T1 endplate. There is mild straightening of the normal cervical lordosis without evidence of significant spondylolisthesis. There is no displaced fracture or dislocation. There is [id number] degenerative disc disease with disc desiccation, height loss and marginal osteophyte formation. The facets are well imbricated. The paraspinous soft tissues are grossly within normal limits. Impression: Mild degenerative changes of the cervical spine without acute osseous abnormality. Please note that all CT scans at this facility use dose modulation, iterative reconstruction, and/or weight-based dosing when appropriate to reduce radiation dose to as low as reasonably achievable. Dictated by Dhaval Bustillos MD @ 08/29/2025 9:32:00 AM (Electronically Signed)
--- NOTE | 2025-08-29 09:08 | CRLHL7_ITS ---
For Patients: As a result of the Cures Act, medical imaging exams and procedure reports are released immediately into your electronic medical record. You may view this report before your referring provider. If you have questions, please contact your health care provider. Indication: Fall, altered mental status Technique: Volumetric multidetector CT images of the head were obtained without the administration of low osmolar intravenous contrast. Comparison: CT head August 29, 2024 Findings: There is no intra-axial or extra-axial fluid collection. There is no mass effect or midline shift. There is mild prominence of the lateral ventricles similar to remote prior exam. There are chronic small vessel disease changes in the subcortical and periventricular white matter without lost mederos-white differentiation. The orbits and their contents are grossly within normal limits. There is a frontal vertex scalp hematoma. The underlying bony calvarium is grossly intact. The paranasal sinuses are clear. The mastoid air cells are well aerated. Impression: Demonstration of a frontal vertex scalp hematoma. Otherwise stable chronic small-vessel disease changes of the brain without acute intracranial abnormality. Please note that all CT scans at this facility use dose modulation, iterative reconstruction, and/or weight-based dosing when appropriate to reduce radiation dose to as low as reasonably achievable. Dictated by Dhaval Bustillos MD @ 08/29/2025 9:37:26 AM (Electronically Signed)
--- NOTE | 2025-08-29 09:08 | CRLHL7_ITS ---
For Patients: As a result of the Cures Act, medical imaging exams and procedure reports are released immediately into your electronic medical record. You may view this report before your referring provider. If you have questions, please contact your health care provider. Indication: Fall, altered mental status Technique: Volumetric multidetector CT images of the facial bones were obtained without the administration of IV contrast. Comparison: None available. Findings: The partially visualized brain is normal in attenuation without evidence of midline shift or fluid collection. There is minimal chronic mucoperiosteal thickening seen throughout the paranasal sinuses. There is mild right periorbital, preseptal and supraorbital soft tissue swelling. The underlying bony orbits are otherwise grossly intact. The zygomatic arches are grossly intact. The bilateral maxillae are intact. The pterygoid plates are grossly intact. The nasal bones and anterior nasal spine are intact without displaced fracture. The mandible is grossly well located. The partially visualized cervical spine is grossly intact without displaced fracture. Impression: Mild periorbital and supraorbital soft tissue prominence without evidence of facial bony injury. Please note that all CT scans at this facility use dose modulation, iterative reconstruction, and/or weight-based dosing when appropriate to reduce radiation dose to as low as reasonably achievable. Dictated by Dhaval Bustillos MD @ 08/29/2025 9:46:25 AM (Electronically Signed)
--- OUTSIDE RECORDS SUMMARY | 2025-08-29 09:09 | XMS_ITS | Clinical Summary ---
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 Name Role Phone Iman, Kristy Arroyo Unavailable [phone] Tanja Sahni MD Unavailable [phone] Rosalio Conner MD Primary Care Provider Allergies Active AllergyReactionsCriticalityNoted HrysFdklgrglJmmbjyczhoCqmw05/15/2013 Medications MedicationSigDispense QuantityRefillsLast FilledStart DateEnd DateStatus lamoTRIgine (LAMICTAL) 200 mg tablet Indications:Unspecified epilepsy without mention of intractable epilepsy (HC) Take 1.5 tablets by mouth 2 times daily.ctive acetaminophen (TYLENOL EXTRA STRGTH) 500 mg tablet Take 1,000 mg by mouth every 4 hours.Active risperiDONE (RISPERDAL) 2 mg tablet Indications:Intermittent explosive disorderTAKE 1 TABLET BY MOUTH 3 TIMES DAILY 90 Tablet ctive traZODone (DESYREL) 50 mg tablet Indications:Intermittent explosive disorderTAKE 1 TABLET BY MOUTH 3 TIMES DAILY 90 Tablet 07/11/2021ctive escitalopram oxalate (LEXAPRO) 10 mg tablet Indications:Obsessive-compulsive disorder, unspecified typeTake 1 Tablet (10 mg) by mouth every morning.ctive QUEtiapine (SEROQUEL) 100 mg tablet Take 1 Tablet (100 mg) by mouth three times daily.ctive acyclovir (ZOVIRAX) 400 mg tablet Indications:History of cold soresTake 1 Tablet (400 mg) by mouth three times daily. For 5 days. Take with each cold sore outbreak. 15 Tablet ctive propranoloL (INDERAL) 10 mg tablet three times daily.01/16/2023ctive lamoTRIgine (LAMICTAL) 25 mg tablet 02/04/2023ctive diazePAM (VALIUM) 2 mg tablet Take 1 Tablet (2 mg) by mouth.02/24/2023ctive docosanol 10 % (ABREVA) 10 % cream Apply topically to affected area(s) 5 times daily. prnActive loperamide (IMODIUM) 2 mg tablet each time if needed for Diarrhea. Take 2 tablets (4mg) orally with 1st loose stool, then 1 tablet (2mg) with other loose stools. Max 8 tablets (16 mg) in 24 hrs.Active milk of magnesia concentrate (Milk Of Magnesia Concentrated) 2,400 mg/10 mL concentrate Take by mouth.Active neomyc/colist/hydrocort/thonzn (LAFPGCXT-VATMCK-HR-THONZONIUM OTIC) Place 4 Drops into the ear(s) three times daily.05/11/2023ctive doxycycline monohydrate (MONODOX) 100 mg capsule Take 100 mg by mouth once daily.12/29/2022ctive fluconazole (DIFLUCAN) 150 mg tablet Take 150 mg by mouth once daily.01/06/2023ctive One Daily Essential tablet Take 1 Tablet by mouth once daily.08/27/2023ctive white petrolatum ointment Apply topically to affected area(s). 6 times per day01/02/2023ctive clotrimazole (LOTRIMIN) 1 % cream Indications:Zee infection of flexural skinApply topically to affected area(s) 2 times daily if needed (rash). 113 g ctive acetic acid (VOSOL) 2 % otic solution Indications:Ceruminosis, bilateralPLACE 4 DROPS INTO EACH EAR THREE TIMES DAILY NEEDED FOR CERUMEN IMPACTION 15 mL 6405/10/2024Active sodium chloride (OCEAN) 0.65 % nasal solution Indications:Nasal congestionInhale 1 Carson into affected nostril(s) every 30 minutes if needed for Nasal Congestion or Nasal Dryness. 45 mL 4Active triamcinolone (ARISTOCORT; KENALOG) 0.1 % cream Indications:Acute eczemaApply topically to affected area(s) 2 times daily if needed (effected area of external ears). Not to exceed 10 days per episode. 28 g 1124Active multivitamin with folic acid 0.4 mg (Tab-A-Soham) Indications:Obesity due to excess calories, unspecified obesity severityTAKE 1 TABLET BY MOUTH DAILY 90 Tablet 5Active sennosides (Senna) 8.6 mg tablet Indications:Chronic constipationTAKE 3 TABLETS BY MOUTH DAILY 270 Tablet 5Active aspirin chewable 81 mg chewable tablet Indications:Antiplatelet or antithrombotic long-term useTAKE 1 TABLET BY MOUTH DAILY 90 Tablet 5Active atorvastatin 20 mg tablet Indications:Hyperlipidemia, unspecified hyperlipidemia typeTAKE 1 TABLET BY MOUTH EVERY NIGHT AT BEDTIME 90 Tablet 5Active mometasone (ELOCON) 0.1 % cream Indications:Dermatitis of both ear canalsUse in affected outer ear canal as needed. Up to twice a day for up to 2 weeks. Do not push in withqtip or any device. Only apply where your fingers can reach. This is used when the outer ear canal is itchy or skin is scaly. 15 g 1075Active cholecalciferol (VITAMIN D3) 1,000 unit tablet Indications:Vitamin D deficiencyTAKE 1 TABLET BY MOUTH EVERY MORNING 90 Tablet 5Active cetirizine (ZYRTEC) 10 mg tablet Indications:Acute bacterial conjunctivitis of left eyeTAKE 1 TABLET BY MOUTH DAILY 90 Tablet 5Active Active Problems ProblemNoted DateDiagnosed EkokTksfjgvruocdccev87/01/7235Wuyevgodsl39/21/2023 NSTEMI (type 2) 12/30/2022 in context of pvjmzahgs25/15/2023Seizure disorder 01/24/2023ontrolled substance agreement juyqwk3803/31/2017 Overview (03/31/2017): Signed; 10/04/16-Dr. Daniel Mcintyre MD / psychiatry Dermatitis of both ear vsxgce3505/29/2015OCD (obsessive compulsive disorder) 10/18/2014Chronic ukomkmansbmf57/16/2013Tinea ysjltaxl08/03/2009Mixed bgqrqzadljsmtg22/28/2008PITUITARY PMUWPVUX78/06/2007 Overview (04/17/2007): GH deficiency Intermittent explosive oghqwpgh15/09/2007 Overview (04/17/2007): behavior difficulties Severe intellectual vdytizwkisxr06/09/2007 Overview (11/06/2021): Non-Verbal Resolved Problems ProblemNoted DateDiagnosed DateResolved DateHistory of seizure disorder ilateral impacted ojneowp84besity, bxyplsindzk30Encounter for long-term (current) use of other rayjckgmlam84Nonintractable epilepsy without status ktgpxuemiyb65Unspecified intellectual wtlfpaolbqlj37/06/2007 11/09/2007 Encounters DateTypeDepartmentCare YcliVfptvjfsgiq95/17/2025Refill [address] [address] Rosalio Conner MD Refill Request (Tab-a-soham)06/04/2025Refill [address] [address] Rosalio Conner MD Refill Request (Cholecalciferol, Cetirizine)from Last 3 Months Immunizations ImmunizationAdministration DatesNext DueCOVID-19 vaccine (Moderna 100mcg/0.5mL) MD ÁLVAROV11/05/2020,10/08/2020Hepatitis B (Peds)05/17/1996,12/15/1995,10/20/1995 INFLUENZA, IIV3 PF (AGE >= 6 MO)07/04/2024Influenza A (H1N1), Inactivated 09/01/2009Influenza RIV4 (Age 18+ Years) PRESERV FREE06/22/2019Influenza Virus, Vmxaotwfuyv78/22/2018,06/14/2016Influenza, IIV3 (Age >=3 years)06/09/2011, 08/17/2004Influenza, SDH202/05/2023,06/22/2022,07/02/2017Influenza, IIV4 (=>6mos) MDV1,06/16/2020,06/26/2015Influenza,CCIIV4 PRESERV FREE 07/03/2018MMR11/26/1994Td (Age >=7 Years)05/24/2004Tdap12/18/2013Tuberculin (PPD)11/12/2008,11/09/2007Tuberculin Skin Test, Fpnyuotzwhe85/21/2019,06/23/2019 Family History Medical HistoryRelationNameCommentsUnknownFatherUnknownMotherRelationNameStatus CommentsFatherMother Social History Tobacco UseTypesPacks/DayYears UsedDateSmoking Tobacco: NeverSmokeless Tobacco: Never Tobacco Cessation:Counseling Given: No Alcohol UseStandard Drinks/WeekCommentsNo0 (1 standard drink = 0.6 oz pure alcohol)PHQ-2AnswerDate RecordedPHQ-2 TOTAL ITDKO160Financial Resource StrainAnswerDate RecordedDifficulty of Paying Living ExpensesNot on file 2Difficulty of Paying Living ExpensesNot on file09/12/2021ex and Gender InformationValueDate RecordedSex Assigned at BirthNot on fileLegal Sex Male09/25/2012 5:26 AM CSTGender IdentityNot on fileSexual OrientationLesbian or Gay12/08/2020 11:38 AM CDT Last Filed Vital Signs Vital SignReadingTime TakenCommentsBlood Irvzuszr631/8407 2:34 PM CDT Bswxp2648 2:34 PM DWZGxdydgmckts52.9 ??C (98.5 ??F)06/09/2023 10:19 AM CDTRespiratory Lciu707005/24/2022 9:43 AM CDTOxygen Gnzutqyfdd97%04/03/2025 2:34 PM CDTInhaled Oxygen Concentration--Oaovre75 kg (172 lb)04/03/2025 2:34 PM CDT Xdzlrx596 cm (5' 2.21)04/03/2025 2:34 PM CDTBody Mass Index31.25004/03/2025 2:34 PM CDT Plan of Treatment DateTypeDepartmentCare Team (Latest Contact Info)Zjbwfllptxy20/14/2026 3:00 PM CSTOffice Visit [facility] [address] [place] [address] Dunia Valdez PA [address] [place] [address] 04/04/2026 10:30 AM CDTOffice Visit [facility] [address] [place] [address] Rosalio Conner MD [address] [place] [address] Health MaintenanceDue DateLast DoneCommentsPneumococcal series for age 6-49 (1 of 2 - PCV)1997Colonoscopy through age 75011/19/2023Tetanus booster /04/2014, 05/24/2004Depression screening for age 12+04/02/2025 04/02/2024, 12/14/2018, 04/05/2017, Additional history existsCOVID-19 vaccine series ( season), 07/21/2023, 06/22/2022, Additional history existsInfluenza Vaccine (#1), 07/21/2023, 06/22/2022, Additional history existsBMI (ht and wt on same day) for age 18+ , 04/02/2024, 04/01/2023, Additional history existsLipids for age 45-7507/, 04/02/2024, 04/01/2023, Additional history existsHepatitis B series for 19+Lzjailthw23/05/1996, 12/15/1995, 10/20/1995 Hepatitis C screening for age 18-23Wyebfvxdw63/02/2022HIV for age 15-65Completed 04/01/2023 Procedures Procedure NamePriorityDate/TimeAssociated DiagnosisCommentsLIPID PANEL W REFLEX MEASURED LBFLtbexww18/23/2025 3:12 PM CDT Hyperlipidemia, unspecified hyperlipidemia type LC HIV-1/O/2, 4TH ZBPOSFOFJWEgagaeg97/21/2023 9:52 AM CDT Screening for HIV (human immunodeficiency virus) ANTI IGLHckwqhq66/02/2022 8:28 AM CDT Need for hepatitis C screening test from Last 3 Months or Most Recently Relevant to Health Maintenance Results * (ABNORMAL) LIPID PANEL W REFLEX MEASURED LDL (04/03/2025 3:12 PM CDT)Component ValueRef RangeTest MethodAnalysis TimePerformed AtPathologist Signature CHOLESTEROL, QTCPG374<200 mg/dLQuest University of [facility], [place] DaleHDL CPTKOARJZVH35(L) > OR = 40 mg/dLQuest [facility] [place] OtgoXURFQTJWGFDZO067(H)<150 mg/dLQuest [facility] [place] DaleComment: If a non-fasting specimen was collected, consider repeat triglyceride testing on a fasting specimen if clinically indicated. Ayo et al. J. of Clin. Lipidol. 2015;9:129-169. LDL-CHOLESTEROLQuest University of [facility], [place] DaleComment: LDL cholesterol not calculated. Triglyceride levels greater than 400 mg/dL invalidate calculated LDL results. Reference range: <100 Desirable range <100 mg/dL for primary prevention; <70 mg/dL for patients with CHD or diabetic patients with > or = 2 CHD risk factors. LDL-C is now calculated using the Marina calculation, which is a validated novel method providing better accuracy than the Friedewald equation in the estimation of LDL-C. Dontae BURNS et al. SAMUEL. 2013;310(19): 3187-0423 (http://education.Electron Database/faq/UHN965) CHOL/HDLC RATIO5.1(H)<5.0 (calc)[facility] YahireNON HDL CHOLESTEROL 123<130 mg/dL (calc)[employer] ASA-[place] YahireComment: For patients with diabetes plus 1 major ASCVD risk factor, treating to a non-HDL-C goal of <100 mg/dL (LDL-C of <70 mg/dL) is considered a therapeutic option. Specimen (Source)Anatomical Location / LateralityCollection Method / Volume Collection TimeReceived TimeBloodBLOOD SPECIMEN / Ecefnqz0304/03/2025 3:12 PM CDT 04/03/2025 3:12 PM CDT Narrative Authorizing ProviderResult TypeResult StatusRosalio Conner MDCHEMISTRY Final ResultPerforming OrganizationAddressCity/State/ZIP CodePhone Number [employer] [facility] [address] [place] [address], [employer] [facility]SAEss[facility] [address] [place] [address] * LC HIV-1/O/2, 4TH GENERATION (04/01/2023 9:52 AM CDT)ComponentValueRef Range Test MethodAnalysis TimePerformed AtPathologist SignatureHIV Scr 4th GenNon ReactiveNon Tlquankz47/25/2023 10:17 PM CDTLABCORP [facility] ([facility])Comment: HIV Negative HIV-1/HIV-2 antibodies and HIV-1 p24 antigen were NOT detected. There is no laboratory evidence of HIV infection. Specimen (Source)Anatomical Location / LateralityCollection Method / Volume Collection TimeReceived TimeBloodBLOOD SPECIMEN / UnknownButterfly / Unknown 04/01/2023 9:52 AM CDT04/01/2023 9:53 AM CDT Narrative LABNOR[facility] ([facility]) - 04/05/2023 10:17 PM CDT Performed at: [address] [place] [address] ??[id number] Valet Cashier: Hilario Phipps MD, Phone: ??[phone] Authorizing ProviderResult TypeResult StatusRosalio Conner MDLABORATORY Final ResultPerforming OrganizationAddressCity/State/ZIP CodePhone Number [facility] ([facility]) [facility] [place] [address], * ANTI HCV (07/14/2022 8:28 AM CDT)ComponentValueRef RangeTest MethodAnalysis TimePerformed AtPathologist SignatureHEPATITIS C ANTIBODYNon-Reactive Non-Uzjpmkni47/02/2022 6:26 PM CDLEWISGALE HOSPITAL [facility] Comment:Antibodies to HCV not detected; does not exclude the possibility of exposure to HCV.Specimen (Source)Anatomical Location / LateralityCollection Method / VolumeCollection TimeReceived TimeBloodBLOOD SPECIMEN / Unknown Venipuncture / Thtlnzk7907/14/2022 8:28 AM CDT109/13/2021 8:29 AM CDT Narrative Authorizing ProviderResult TypeResult StatusRosalio Conner MDSEND OUTS Final ResultPerforming OrganizationAddressCity/State/ZIP CodePhone Number [facility] [address] [place] [address], from Last 3 Months or Most Recently Relevant to Health Maintenance Insurance * Guarantor: Saulo Rinaldi TypeRelation to PatientDate of BirthPhone Billing AddressPersonal/LnydxfMhai81[birth year][address] [address] * Guarantor: Saulo Rinaldi TypeRelation to PatientDate of BirthPhone Billing AddressPersonal/XqxsqjGurk37/[birth year][address] [address] Advance Directives TypeDate RecordedPatient RepresentativeExplanationPower of Attorney11/27/2010 guardianship papers * Full Code (Latest Code Status on File) Date ActivatedDate PuzqaekoimwNgucladi31/5/2014 8:10 AM07/17/2014 1:44 PM Care Teams Team MemberRelationshipSpecialtyStart DateEnd Date Rosalio Conner MD [address] [place] [address] PCP - GeneralFamily Practice05/13/22 Kristy Valerio AuD Audiology2 Tanja Sahni MD Neurology11/21/12
--- NOTE | 2025-08-29 09:19 | ED.FALL ---
HPI - Fall General Chief Complaint: Fall/Minor Trauma Stated Complaint: fall Head injury Time Seen by Provider: 08/29/25 09:11 Source: patient, EMS, RN notes reviewed and other ( Staff from [facility] is accompanying patient here in the ambulance) Mode of arrival: EMS Limitations: altered mental status History of Present Illness HPI Narrative: this 44-year-old male is a resident of [facility] and has altered mental status and a fall. Patient got up this morning and was normal in active. Around breakfast time, he was down on the floor crawling looking for paper, he loves paper, this is not abnormal for him. Staff went to assist him to stand back up, he can have difficulty getting back up. He was more weak and maybe more difficulty getting back up, actually fell and hit his nose on the arm of the sofa, has a small cut on the bridge of his nose. Since then, he was seeming out of it, not as responsive. They called EMS. , EMS had soft blood pressures in the 90s, did start an IV, blood glucose was 150. One of the nurses here remembers this patient, I was able to look into his chart, had a similar unresponsive episode about a year ago. He is noted to have hypotension in his history, MRSA, OCD, chronic constipation, hyperlipidemia, pituitary dwarfism, epilepsy, intermittent explosive disorder, intellectual developmental disorder severe. [facility] staff definitely notes that he is not at his baseline. His last known full seizure was 7 years ago. He was not given any medication by EMS. Related Data Home Medications ?Medication ?Instructions ?Recorded ?Confirmed cholecalciferol (vitamin D3) 25 25 mcg PO DAILY 04/19/22 07/08/24 mcg (1,000 unit) tablet (Vitamin D3) diazepam 5 mg tablet 2 mg PO DAILY 04/19/22 07/08/24 escitalopram oxalate 10 mg tablet 10 mg PO DAILY 04/19/22 07/08/24 gemfibrozil 600 mg tablet 600 mg PO BID 04/19/22 07/08/24 quetiapine 100 mg tablet 100 mg PO TID 04/19/22 07/08/24 trazodone 50 mg tablet 50 mg PO TID 04/19/22 07/08/24 atorvastatin 20 mg tablet 20 mg PO DAILY 06/28/22 07/08/24 multivitamin (One Daily Essential 1 tab PO DAILY 06/28/22 07/08/24 tablet) acetaminophen 500 mg capsule 1,000 mg PO Q6H PRN 01/15/23 07/08/24 acetic acid 2 % ear solution 4 drp otic (ear) TID 01/15/23 07/08/24 clotrimazole 1 % topical cream 1 applic topical BID 01/15/23 07/08/24 loperamide 2 mg capsule (Imodium 2 - 4 mg PO PRN PRN 01/15/23 07/08/24 A-D) triamcinolone acetonide 0.1 % 1 applic topical BID-TID 05/11/23 07/08/24 topical cream acyclovir 400 mg tablet 400 mg PO 3XD PRN 07/08/24 07/08/24 lamotrigine 200 mg tablet 200 mg PO Q12H 07/08/24 07/08/24 lamotrigine 25 mg tablet 25 mg PO QHS 07/08/24 07/08/24 risperidone 1 mg tablet 2 mg PO .5X/day 07/08/24 07/08/24 Previous Rx's ?Medication ?Instructions ?Recorded aspirin 81 mg chewable tablet 81 mg PO DAILY #90 tabs 01/02/23 (Children's Aspirin) white petrolatum (Lip Treatment 1 applic topical 6XD PRN dry skin 01/02/23 topical jelly) #113 grams propranolol 10 mg tablet 10 mg PO TID #90 tabs 01/16/23 sennosides 8.6 mg tablet 25.8 mg (3 x 8.6 mg) PO DAILY #90 01/16/23 tabs hydrocortisone 1 % topical cream 1 applic topical BID PRN skin 07/08/24 (Anti-Itch (hydrocortisone)) irritation #28.35 grams ketotifen fumarate 0.025 % (0.035 1 drp ophthalmic (eye) BID PRN 07/08/24 %) eye drops (Zaditor) allergy symptoms #5 mL Allergies Allergy/AdvReac Type Severity Reaction Status Date / Time Cephalosporins Allergy Mild Rash Verified 07/08/24 13:30 Review of Systems Status of ROS: Reports: unobtainable due to medical condition [facility] Medical History Hypotension ?I95.9 - Hypotension, unspecified (ICD-10) MRSA (methicillin resistant Staphylococcus aureus) colonization ?Z22.322 - Carrier or suspected carrier of Methicillin resistant Staphylococcus aureus (ICD-10) OCD (obsessive compulsive disorder) ?F42.9 - Obsessive-compulsive disorder, unspecified (ICD-10) Obesity ?E66.9 - Obesity, unspecified (ICD-10) Chronic constipation ?K59.09 - Other constipation (ICD-10) Hyperlipidemia ?E78.5 - Hyperlipidemia, unspecified (ICD-10) 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 Sees Dr. Conner for primary care. code status is full. He does not smoke or drink alcohol Highest level of school completed/degree received: don't know Smoking Status: Never smoker Do you use any of these nicotine containing products: None Second hand tobacco smoke exposure: No How often do you have a drink containing alcohol: never How often do you have six or more drinks on one occasion: Never AUDIT-C Alcohol total score: 0 Non-prescribed substance use: denies use Caffeine: No service: No Exam Const: Vital Signs, click to edit/add: Vital Signs - 24 hr 08/29/25 09:09 08/29/25 09:10 08/29/25 09:21 Temperature 97.4 F L Pulse Rate 66 Pulse Rate [Pulse Oximeter] 64 Respiratory Rate 12 11 L Blood Pressure Blood Pressure [Ri ght Upper Arm] 100/76 Pulse Oximetry 96 96 94 Oxygen Delivery Me thod Room Air 08/29/25 09:30 08/29/25 09:33 08/29/25 09:45 Temperature Pulse Rate 68 69 72 Pulse Rate [Pulse Oximeter] Respiratory Rate 9 L 12 10 L Blood Pressure 103/68 Blood Pressure [Ri ght Upper Arm] Pulse Oximetry 96 93 94 Oxygen Delivery Me thod Room Air 08/29/25 09:47 08/29/25 10:00 08/29/25 10:02 Temperature Pulse Rate 72 Pulse Rate [Pulse Oximeter] Respiratory Rate 13 12 14 Blood Pressure 119/66 92/65 Blood Pressure [Ri ght Upper Arm] Pulse Oximetry Oxygen Delivery Me thod Room Air 08/29/25 10:03 08/29/25 10:15 08/29/25 10:16 Temperature Pulse Rate Pulse Rate [Pulse Oximeter] Respiratory Rate 11 L 12 12 Blood Pressure 96/70 Blood Pressure [Ri ght Upper Arm] Pulse Oximetry Oxygen Delivery Me thod 08/29/25 10:30 08/29/25 10:32 08/29/25 10:45 Temperature Pulse Rate 72 Pulse Rate [Pulse Oximeter] Respiratory Rate 11 L 10 L 10 L Blood Pressure 98/68 Blood Pressure [Ri ght Upper Arm] Pulse Oximetry 96 Oxygen Delivery Me thod Room Air 08/29/25 10:47 08/29/25 11:00 08/29/25 11:02 Temperature Pulse Rate Pulse Rate [Pulse Oximeter] Respiratory Rate 10 L 19 12 Blood Pressure 98/71 100/67 Blood Pressure [Ri ght Upper Arm] Pulse Oximetry Oxygen Delivery Me thod 08/29/25 11:15 08/29/25 11:17 08/29/25 11:17 Temperature Pulse Rate Pulse Rate [Pulse Oximeter] Respiratory Rate 11 L 10 L 10 L Blood Pressure 110/72 110/72 Blood Pressure [Ri ght Upper Arm] Pulse Oximetry Oxygen Delivery Me thod 08/29/25 11:30 08/29/25 11:31 Temperature 62 F L Pulse Rate 16 L Pulse Rate [Pulse Oximeter] Respiratory Rate 11 L 11 L Blood Pressure 99/68 Blood Pressure [Ri ght Upper Arm] Pulse Oximetry Oxygen Delivery Me thod Room Air Patient was seen on arrival and then again after CT. He is alert and looking around most the time but not really interacting with me. He is breathing independently, small facial cot over the mid to left bridge of his nose, about maybe 4-5 mm. Already scabbing over with good wound approximation. Does not look like this is going to need any suturing. Pupils are equal round, conjugate gaze. No other facial trauma noted. Mouth is open, no oral pharyngeal trauma. Lungs are clear, good air entry, no wheezing or crackles, no tachypnea. CV regular rate and rhythm, no murmur, normal S1-S2. Abdomen is not distended, normal bowel sounds, seems soft, no masses, does not have any discomfort when I palpate or at least does not grimace or seemed I have any reaction to palpation of his abdomen. Arms and legs visualize, no traumatic change but will not follow commands like grab my hands or squeeze my hands. He is only really noted to move his head to look around. Documenting provider has reviewed patient's vital signs: yes Course Course ED Course: Had patient go get stat head CT, facial CT and cervical spine CT given his presentation and the history surrounding the events. After the CT imaging, he came back to [facility] and will be on cardiac monitoring, pulse oximetry to ensure no hypoxia or arrhythmia. We will obtain full labs, EKG, lactate for sure. I do wonder if this could be some atypical seizure pattern noted here. We will continue to monitor, rule out traumatic intracranial issues, cervical spine trauma, facial trauma with our CT imaging. Will consider metabolic and infectious etiologies. Will have nursing staff do triple viral swab. Reevaluation(s) Time of Reevaluation #1: 09:28 Reevaluation #1: Nursing staff reports that he is alert and awake at this time, singing and laughing. Time of Reevaluation #2: 10:16 Reevaluation #2: Patient remains stable. His nurse and I did look at his back, no traumatic change, does not seem to have any midline tenderness. He does have a little rash in his left groin, looks somewhat chronic. No other traumatic change noted of his lower extremities. Reviewed with his care provider from [facility] that is at his bedside that he does not have any fractures, no brain bleed. He has soft tissue injury, we did review that he might get black eyes bilaterally but that there are no fractures. We are just awaiting labs. At this time, I do think it is likely he is going to discharge back to home. We may find that he might have spells like this, at this time there is no definitive etiology. Time of Reevaluation #3: 11:58 Reevaluation #3: Staff from the long-term feel he is back to baseline. He has been ambulatory here. Did give him a L of fluids, really did not change his blood pressure at all. I do not have any evidence of any infection at this time. Unclear what this spell was but he had 1 almost exactly a year ago. Vital Signs Vital signs: Initial Vital Signs Pulse Oximetry 96 08/29/25 09:09 Vital Signs Pulse Oximetry 96 08/29/25 09:09 Temperature 62 F L 08/29/25 11:31 Pulse Rate 16 L 08/29/25 11:31 Respiratory Rate 11 L 08/29/25 11:31 Blood Pressure 99/68 08/29/25 11:31 Pulse Oximetry 96 08/29/25 10:32 Oxygen Delivery Method Room Air 08/29/25 11:31 Medications Administered Medications: Discontinued Medications Generic Name Dose Route Start Last Admin Trade Name Freq PRN Reason Stop Dose Admin Sodium Chloride 1,000 mls @ 1,000 mls/hr 08/29/25 10:37 08/29/25 11:46 0.9 % Sodium Chloride 1000 Ml IV 08/29/25 11:36 Infused .Q1H CARL Infusion MDM - Fall Lab Data Attestation: I reviewed the patient's lab results. Labs: Lab Results 08/29/25 08/29/25 Range/Units 09:42 09:44 WBC 4.44 L (4.50-11.00) K/uL RBC 4.78 (4.30-5.90) m/uL Hgb 14.0 (13.5-17.5) gm/dL Hct 43.9 (37.0-53.0) % MCV 92 (80-100) fL MCH 29 (26-34) pg MCHC 32 (32-36) gm/dL RDW Coeff of Dileep 13.0 (11.5-15.5) % Plt Count 159 (140-440) K/uL Neut % (Auto) 56.6 (42.0-72.0) % Lymph % (Auto) 32.2 (20-44) % Lawrence % (Auto) 10.6 (0.0-11.0) % Eos % (Auto) 0.2 (0.0-7.0) % Baso % (Auto) 0.2 (0.0-3.0) % Neut # (Auto) 2.50 (1.7-7.0) K/uL Lymph # (Auto) 1.40 (0.90-2.90) K/uL Lawrence # (Auto) 0.50 (0.00-0.90) K/UL Eos # (Auto) 0.00 (0.00-0.50) K/uL Baso # (Auto) 0.00 (0.00-0.30) K/uL Abs Immat Gran (auto) 0.00 (0.00-0.30) K/uL Imm/Tot Granulo (auto) 0.2 % Sodium 138 (135-149) mmol/L Potassium 4.0 (3.6-5.1) mmol/L Chloride 100 (96-114) mmol/L Carbon Dioxide 28 (20-32) mmol/L Anion Gap 10 (7-15) mEq/L BUN 20 (5-24) mg/dL Creatinine 0.9 (0.5-1.5) mg/dL Estimated Creat Clear 92.55 Estimated GFR 107 ml/min Glucose 112 (60-115) mg/dL Lactate 1.2 (0.5-1.9) mmol/L Calcium 9.0 (8.4-10.6) mg/dL Magnesium 1.9 (1.5-2.6) mg/dL Total Bilirubin 0.6 (0.1-1.5) mg/dL AST 27 (12-35) U/L ALT 27 (4-50) U/L Alkaline Phosphatase 151 H (40-150) U/L NT-Pro-B Natriuret Pep < 20 (See Note) pg/mL Total Protein 7.5 (6.0-8.3) g/dL Albumin 4.5 (3.3-5.0) g/dL SARS-CoV-2 (PCR) Negative SARS-CoV-2 (Negative) Influenza Type A (PCR) Negative PCR FLU A (Negative) Influenza Type B (PCR) Negative PCR FLU B (Negative) RSV (PCR) Negative PCR RSV (Negative) Imaging Data CT cervical spine: Attestation: I have reviewed the pertinent imaging results. Radiologist's impression: Patient: KINGSLEY KERNS Facility:?[facility] Patient ID:?[id number] Site Patient ID:?[id number]. Site :?1980 Study:?CT-Spine Cervical WITHOUT TRAUMA CODE-08/29/2025 9:23:30 AM Ordering Physician:Shashank Berkowitz Final Report: Indication: Fall, altered mental status Technique: Volumetric multidetector CT images of the cervical spine were obtained without the administration of IV contrast. Comparison: None available. Findings: The cervical vertebral body heights are grossly maintained with minimal endplate Schmorl`s defects. Mildly limited evaluation due to noninclusion of the inferior T1 endplate. There is mild straightening of the normal cervical lordosis without evidence of significant spondylolisthesis. There is no displaced fracture or dislocation. There is [id number] degenerative disc disease with disc desiccation, height loss and marginal osteophyte formation. The facets are well imbricated. The paraspinous soft tissues are grossly within normal limits. Impression: Mild degenerative changes of the cervical spine without acute osseous abnormality. Please note that all CT scans at this facility use dose modulation, iterative reconstruction, and/or weight-based dosing when appropriate to reduce radiation dose to as low as reasonably achievable. Dictated by Dhaval Bustillos MD @ 08/29/2025 9:32:00 AM (Electronic Signature) CT scan - head: Attestation: I have reviewed the pertinent imaging results. Radiologist's impression: Patient: KINGSLEY KERNS Facility:?[facility] Patient ID:?[id number] Site Patient ID:?[id number]. Site :?1980 Study:?CT-Head WITHOUT TRAUMA CODE-08/29/2025 9:22:51 AM Ordering Physician:Shashank Berkowitz Final Report: Indication: Fall, altered mental status Technique: Volumetric multidetector CT images of the head were obtained without the administration of low osmolar intravenous contrast. Comparison: CT head August 29, 2024 Findings: There is no intra-axial or extra-axial fluid collection. There is no mass effect or midline shift. There is mild prominence of the lateral ventricles similar to remote prior exam. There are chronic small vessel disease changes in the subcortical and periventricular white matter without lost mederos-white differentiation. The orbits and their contents are grossly within normal limits. There is a frontal vertex scalp hematoma. The underlying bony calvarium is grossly intact. The paranasal sinuses are clear. The mastoid air cells are well aerated. Impression: Demonstration of a frontal vertex scalp hematoma. Otherwise stable chronic small-vessel disease changes of the brain without acute intracranial abnormality. Please note that all CT scans at this facility use dose modulation, iterative reconstruction, and/or weight-based dosing when appropriate to reduce radiation dose to as low as reasonably achievable. Dictated by Dhaval Bustillos MD @ 08/29/2025 9:37:26 AM (Electronic Signature) CT facial bones: Attestation: I have reviewed the pertinent imaging results. Radiologist's impression: Patient: KINGSLEY KERNS Facility:?[facility] Patient ID:?[id number] Site Patient ID:?[id number]. Site :?1980 Study:?CT-Facial WITHOUT TRAUMA CODE-08/29/2025 9:23:14 AM Ordering Physician:?Vinny Berkowitz Final Report: Indication: Fall, altered mental status Technique: Volumetric multidetector CT images of the facial bones were obtained without the administration of IV contrast. Comparison: None available. Findings: The partially visualized brain is normal in attenuation without evidence of midline shift or fluid collection. There is minimal chronic mucoperiosteal thickening seen throughout the paranasal sinuses. There is mild right periorbital, preseptal and supraorbital soft tissue swelling. The underlying bony orbits are otherwise grossly intact. The zygomatic arches are grossly intact. The bilateral maxillae are intact. The pterygoid plates are grossly intact. The nasal bones and anterior nasal spine are intact without displaced fracture. The mandible is grossly well located. The partially visualized cervical spine is grossly intact without displaced fracture. Impression: Mild periorbital and supraorbital soft tissue prominence without evidence of facial bony injury. Please note that all CT scans at this facility use dose modulation, iterative reconstruction, and/or weight-based dosing when appropriate to reduce radiation dose to as low as reasonably achievable. Dictated by Dhaval Bustillos MD @ 08/29/2025 9:46:25 AM (Electronic Signature) ECG Data Attestation: I personally reviewed and interpreted this ECG as follows: ( Normal sinus rhythm, 66 beats per minute. QT corrected 404 milliseconds. No ischemia, no infarct.) ECG interpretation date: 08/29/25 ECG interpretation time: 09:36 Prior ECG tracings: available for review Discharge Plan Discharge Clinical Impression: Fall, Superficial laceration of face Patient Disposition: Home w/ Parent or Adult Condition: Stable Instructions: Laceration Without Closure (ED) Additional Instructions: Use bacitracin on the superficial wound on the bridge of the nose 3 times a day until healed. Watch for infection, seek re-evaluation if there are concerns. It is not exactly clear why he had this spell this morning, no pathology was found on evaluation. Can talk to primary provider regarding this episode. He seems to be back to baseline. Seek re-evaluation if there are further concerns. Activity Level: Activity as Tolerated Discharge Diet: Regular Prescriptions: No Action ketotifen fumarate [Zaditor] 0.025 % (0.035 %) drops 1 drp ophthalmic (eye) BID PRN (Reason: allergy symptoms) Qty: 5 0RF Rx Instructions: administer at least 8 hours apart for 3 days hydrocortisone [Anti-Itch (HC)] 1 % cream 1 applic topical BID PRN (Reason: skin irritation) Qty: 28.35 0RF trazodone 50 mg tablet 50 mg PO TID quetiapine 100 mg tablet 100 mg PO TID gemfibrozil 600 mg tablet 600 mg PO BID diazepam 5 mg tablet 2 mg PO DAILY escitalopram oxalate 10 mg tablet 10 mg PO DAILY cholecalciferol (vitamin D3) [Vitamin D3] 25 mcg (1,000 unit) tablet 25 mcg PO DAILY lamotrigine 200 mg tablet 200 mg PO Q12H acetaminophen 500 mg capsule 1,000 mg PO Q6H PRN acetic acid 2 % solution 4 drp otic (ear) TID Rx Instructions: 4 drops both ears TID clotrimazole 1 % cream 1 applic topical BID loperamide [Imodium A-D] 2 mg capsule 2 - 4 mg PO PRN PRN propranolol 10 mg tablet 10 mg PO TID Qty: 90 2RF sennosides 8.6 mg tablet 25.8 mg PO DAILY Qty: 90 1RF atorvastatin 20 mg tablet 20 mg PO DAILY multivitamin [One Daily Essential] Tablet 1 tab PO DAILY white petrolatum [Lip Treatment] Gel 1 applic topical 6XD PRN (Reason: dry skin) Qty: 113 0RF aspirin [Children's Aspirin] 81 mg Tablet,Chewable 81 mg PO DAILY Qty: 90 0RF risperidone 1 mg tablet 2 mg PO .5X/day triamcinolone acetonide 0.1 % cream 1 applic topical BID-TID acyclovir 400 mg tablet 400 mg PO 3XD PRN lamotrigine 25 mg tablet 25 mg PO QHS Follow Up/Referrals: Rosalio Conner MD [Primary Care Provider, Family Practice] Stand Alone Forms: [employer] Info Instructions
[2025-08-29 09:53] LABS: Hematocrit* 43.9 % (37.0-53.0); Hemoglobin* 14.0 gm/dL (13.5-17.5); Immature Granulocytes Pct Auto 0.2 %; Lactate* 1.2 mmol/L (0.5-1.9); Mean Corpuscular HGB Conc 32 gm/dL (32-36); Mean Corpuscular Hemoglobin 29 pg (26-34); Mean Corpuscular Volume 92 fL (80-100); RDW Coefficient of Variation % 13.0 % (11.5-15.5); Red Blood Count* 4.78 m/uL (4.30-5.90); White Blood Count* 4.44 K/uL (4.50-11.00)
[2025-08-29 09:54] LABS: Immature Granulocytes Abs Auto 0.00 K/uL (0.00-0.30); Lymphocytes Absolute Auto 1.40 K/uL (0.90-2.90)
[2025-08-29 09:55] LABS: Slide Review Reflex No
[2025-08-29 10:11] LABS: Albumin* 4.5 g/dL (3.3-5.0); Chloride* 100 mmol/L (96-114); Sodium* 138 mmol/L (135-149)
[2025-08-29 10:12] LABS: Potassium* 4.0 mmol/L (3.6-5.1)
[2025-08-29 10:14] LABS: Alanine Aminotransferase* 27 U/L (4-50); Alkaline Phosphatase* 151 U/L (40-150); Anion Gap 10 mEq/L (7-15); Aspartate Amino Transferase* 27 U/L (12-35); Bilirubin Total* 0.6 mg/dL (0.1-1.5); Blood Urea Nitrogen* 20 mg/dL (5-24); Calcium* 9.0 mg/dL (8.4-10.6); Carbon Dioxide* 28 mmol/L (20-32); Creatinine* 0.9 mg/dL (0.5-1.5); Est. Creatinine Clearance* 92.55; Estimated Glomerular Filt Rate 107 ml/min; Glucose* 112 mg/dL (60-115); Total Protein* 7.5 g/dL (6.0-8.3)
[2025-08-29 10:31] LABS: PCR FLU A Negative PCR FLU A (Negative); PCR FLU B Negative PCR FLU B (Negative); PCR RSV Negative PCR RSV (Negative); SARS PCR* Negative SARS-CoV-2 (Negative)
[2025-08-29 10:33] LABS: NT Pro B Type NatriureticPept* < 20 pg/mL (See Note)
== END 2025-08-29 12:10 | disposition home or self-care (01) ==
PROVIDERS: Emergency Provider Family Medicine; PCP Family Medicine
DX: S00.31XA Abrasion of nose, initial encounter (principal); R41.82 Altered mental status, unspecified; X58.XXXA Exposure to other specified factors, initial encounter; Y92.049 Unspecified place in boarding-house as the place of occurrence of the external cause
CPT/HCPCS: 36415; 70450; 70486; 72125; 80053; 81001; 83605; 83735; 83880; 85025; 87631; 93005; 94761; 96360; 99285; 99291; G0390; J7030